=== PATIENT | male | born 1970 | race Hispanic/Latino ===

== ENCOUNTER 2023-05-20 10:45 | Outpatient (CLI) | payer OTHER, SELFPAY ==
[2023-05-20 11:14] LABS: Hematocrit 48.1 % (42.0-52.0); Immature Platelet Fraction Pct 7.1 % (0.9-11.2); Mean Corpuscular HGB Conc 33.3 g/dl (32-36); Mean Corpuscular Hemoglobin 28.5 pg (26-34); Mean Corpuscular Volume 85.7 fl (80-100); Mean Platelet Volume 10.8 fl (7.4-10.4); Platelet Count Result 138 k/mm3 (150-375); Red Blood Count 5.61 M/mm3 (4.6-6.20); Red Cell Distribution Width 13.8 % (11.5-14.5); White Blood Count 6.1 K/mm3 (4.5-10.0)
[2023-05-20 11:23] LABS: Prothrombin Time 13.8 Seconds (11.1-14.7)
[2023-05-20 11:35] LABS: Alanine Aminotransferase 148 U/L (6-50); Albumin Level 4.5 g/dL (3.5-5.1); Alkaline Phosphatase 64 U/L (38-126); Anion Gap 10 mmol/L (8-16); Aspartate Amino Transferase 92 U/L (17-59); Bilirubin,Total 0.6 mg/dL (0.2-1.3); Blood Urea Nitrogen 15 mg/dL (9-20); Carbon Dioxide 25 mmol/L (22-30); Chloride 107 mmol/L (98-107); Estimated Glomerular Filt Rate > 60; Glucose 133 mg/dL (65-110); Potassium 3.1 mmol/L (3.4-5.0); Sodium 142 mmol/L (137-145)
[2023-05-20 11:41] LABS: Immunoglobulin G 1428 mg/dL (700-1600)
[2023-05-20 12:37] LABS: Iron 102 ug/dL (49-181)
[2023-05-20 12:46] LABS: Percent Iron Saturation 29 % (20-50)
[2023-05-23 16:43] LABS: GGT 46 U/L (3-95)
[2023-05-24 12:58] LABS: Actin Antibody (IgG) <20 U (<20); LKM 1 Antibody <=20.0 U (<=20.0)
[2023-05-25 12:02] LABS: Mitochondrial (M2) Ab (IgG) <=20.0 U (<=20.0)
[2023-05-25 17:06] LABS: Ceruloplasmin 21 mg/dL (18-36)
[2023-05-26 15:01] LABS: Alpha Fetoprotein Tumor Marker 4.1 ng/mL (<6.1)
[2023-05-27 08:00] LABS: Anti Nuclear Antibody Titer >=1:1280 (Negative)
[2023-05-27 15:32] LABS: ALT 120 U/L (9-46); Alpha-2-Macroglobulin 216 mg/dL (106-279); Apolipoprotein A1 144 mg/dL (94-176); Fibrosis Score 0.21; Fibrosis Stage F0; GGT 48 U/L (3-95); Haptoglobin 101 mg/dL (43-212); Necroinflammat Act Grade A2-A3; Total Bilirubin 0.2 mg/dL (0.2-1.2)
== END 2023-05-20 10:46 | disposition home or self-care (01) ==
LOC: ANHLAB 10:47
PROVIDERS: PCP Family Medicine; Visit Provider Nurse Practitioner
DX: R74.8 Abnormal levels of other serum enzymes (principal); K76.0 Fatty (change of) liver, not elsewhere classified; K74.60 Unspecified cirrhosis of liver
CPT/HCPCS: 36415; 80053; 81596; 82105; 82390; 82728; 82784; 82977; 83520; 83540; 83550; 85027; 85055; 85610; 86038; 86039; 86364; 86376

== ENCOUNTER 2023-05-27 08:01 | Outpatient (CLI) | payer OTHER, SELFPAY ==
--- NOTE | ~2023-05-27 | US_ITS ---
Limited Abdominal Sonogram: Real-time sonographic imaging of the right upper quadrant was performed. Clinical History: Abnormal serum enzymes Findings: The liver appears echogenic, with no evidence of mass lesion or bile duct dilatation. Main portal vein demonstrates normal direction of flow. The gallbladder is well distended, and appears no rmal with no evidence of gallstone or wall thickening. The common bile duct measures 6 mm. The visua lized pancreas, aorta, and IVC are unremarkable. Impression: Diffuse fatty infiltration of the liver. Reviewed, dictated and finalized at location M. Impression: Diffuse fatty infiltration of the liver.
== END 2023-05-27 08:02 | disposition home or self-care (01) ==
LOC: ANHIMG 08:05
PROVIDERS: PCP Family Medicine; Visit Provider Nurse Practitioner
DX: R74.8 Abnormal levels of other serum enzymes (principal); K76.0 Fatty (change of) liver, not elsewhere classified
CPT/HCPCS: 76705

== ENCOUNTER 2025-06-21 10:50 | Outpatient (CLI) | payer OTHER, SELFPAY ==
--- OUTSIDE RECORDS SUMMARY | 2025-06-21 10:55 | XMS_ITS | Clinical Summary ---
Author Organization [facility] Farhana Son Address [address] [place] [address] Care Team Providers Care Chief Deputy Coroner Name Role Phone Shanna Mccormack DO Primary Care Provider [phone] Allergies Active Allergy Reactions Criticality Noted Date Comments Hydroxyzine Other (See Comments) High 09/01/2019 Numbness and completley out of it for 24 hours per patient Medications amLODIPine (NORVASC) 10 mg tablet Take 10 mg by mouth daily. 5 Active valsartan (DIOVAN) 160 mg tablet Take 160 mg by mouth daily. 5 Active fexofenadine ([place]) 180 mg tablet Take 180 mg by mouth daily. 4 Active fluticasone propionate (FLONASE) 50 mcg/spray [place], Suspension nasal inhaler Administer 2 Sprays in each nostril daily. 5 Active Flaxseed Oil Oil 5 Active TURMERIC 5 Active POTASSIUM Active cholecalciferol , vitamin D3, 1,000 unit Take 1,000 Units by mouth daily. 4 Active magnesium OXIDE (MAG-OX) 400 mg (241.3 mg magnesium) tablet Take 400 mg by mouth daily. Active Active Problems No known active problems Encounters Date Type Department Care Team Description 06/21/2025 10:30 AM CDT Office Visit [facility] Oncology and Hematology - [place] [address] [place] [address] Temo Stone MD Chronic anemia (Primary Dx); Other secondary thrombocytopenia from Last 3 Months Family History Medical History Relation Name Comments No Known Problems Brother 1 No Known Problems Brother 2 Hypertension Father Diabetes Mother No Known Problems Sister No Known Problems Son 1 No Known Problems Son 2 Relation Name Status Comments Brother 1 Alive Brother 2 Alive Father Mother Sister Alive Son 1 Alive Son 2 Alive Social History Tobacco Use Types Packs/Day Years Used Date Smoking Tobacco: Never Smokeless Tobacco: Never Tobacco Cessation:Counseling Given: Not Answered Alcohol Use Standard Drinks/Week Comments Yes 0 (1 standard drink = 0.6 oz pur e alcohol) Socially Sex and Gender Information Value Date Recorded Sex Assigned at Not on file Legal Sex Male 5:59 PM [employer]AV[employer] Gender Identity Not on file Sexual Orientation Not on file Last Filed Vital Signs Vital Sign Reading Time Taken Comments Blood Pressure 148/94 06/21/2025 10:22 AM CDT Pulse 74 06/21/2025 10:12 AM CDT Temperature 36.8 C (98.2 F) 06/21/2025 10:12 AM CDT Respiratory Rate 14 06/21/2025 10:12 AM CDT Oxygen Saturation 95% 06/21/2025 10:12 AM CDT Inhaled Oxygen Concentration - - Weight 101.2 kg (223 lb) 06/21/2025 10:12 AM CDT Height 160 cm (5' 3) 06/21/2025 10:12 AM CDT Body Mass Index 39.5 06/21/2025 10:12 AM CDT Plan of Treatment Upcoming Encounters Date Type Department Care Team (Late st Contact Info) Description 07/05/2025 4:30 PM CDT Telephone Check Up [facility]ology - [place] [address] [facility] [address] [place] [address] Temo Stone MD [address] [facility] [address] [place] [address] Health Maintenance Due Date Last Done Comments HEPATITIS B VACCINES (1 of 3 - 19+ 3-dose series) 1990 02/01/2015, 07/07/2014, 03/03/2014 COLORECTAL SCREENING 02/03/2016 Colorectal Cancer Screening 02/03/2016 FIT-DNA Q 3 years 02/03/2016 FIT/FOBT Q 1 year 02/03/2016 Flex Sig/CT Colonography Q 5 years 02/03/2016 DTAP/TDAP/TD VACCINES (2 - T d or Tdap) 09/16/2022 09/16/2012 COVID-19 Vaccine (3 - 2023-2 5 season) 2024 04/16/2021, 03/11/2021 INFLUENZA VACCINE (#1) 2025 , 11/02/2019, 11/09/2018, Additional history exists ZOSTER VACCINE Completed 02/17/2022, 11/12/2021 Insurance [facility] Care Teams Chief Deputy Coroner Relationship Specialty Start Date End Date Shanna Mccormack DO [address] [facility] [address] [place] [id number] PCP - General Family Practice 06/21/25
--- OUTSIDE RECORDS SUMMARY | 2025-06-21 10:55 | XMS_ITS | Continuity of Care Document ---
Author Name [facility] Organization [facility] Care Team Providers Care Fruit Receiver Name Role Phone [facility] Unavailable Unavailable Problems Combined list of problems from Department of Defense and [facility] Affairs facilities. It does not include entries that were removed or entered in error. Problem Status Onset Date Problem Type Date of Resolution Comments Source Other allergic rhinitis Active 8 Condition [facility] Essential (primary) hypertension Active 6 Condition [facility] Allergic Rhinitis ([facility] [id number]) Active Condition [facility] Chronic Dermatitis ([facility] [id number]) Active Condition [facility] Exposure to potentially hazardous substance Active Condition [facility] Generalized Anxiety Disorder ([facility] [id number]) Active Condition [facility] HTN - Hypertension ([facility] [id number]) Active Condition [facility] Hypertension Active Condition [facility] Joint pain Active Condition [facility] Left knee pain Active Condition [facility] Liver Function Tests Abnormal ([facility] [id number]) Active Condition [facility] Low back pain Active Condition [facility] Low Back Pain ([facility] [id number]) Active Condition [facility] Mixed Hyperlipidemia ([facility] [id number]) Active Condition [facility] Neck pain Active Condition [facility] Obesity ([facility] [id number]) Active Condition [facility] Obstructive Sleep Apnea Syndrome ([facility] [id number]) Active Condition Jul 08, 2020 Entered By: VIJAYA FREIRE Comment: 01/14/19 sleep study ([facility]), 03/28/19 cpap titration study: 9 cm h2o, cflex 3 with heated humidity [facility] Past history of procedure Active Condition Jun 18, 2020 Entered By: VIJAYA FREIRE Comment: 2016 oral surgery (receding gums)Jun 18, 2020 Entered By: VIJAYA FREIRE Comment: 1995 wisdom teeth extraction (4) [facility] Right hip pain Active Condition [facility] Steatosis of liver Active Condition [facility] Tinnitus ([facility] [id number]) Active Condition [facility] Other intervertebral disc displacement, lumbosacral region Active Condition DoD Flat foot [pes planus] (acquired), right foot Active Condition [facility] Flat foot [pes planus] (acquired), left foot Active Condition DoD Obstructive sleep apnea (adult) (pediatric) Active Condition DoD Other obesity due to excess calories Active Condition DoD Abnormal levels of other serum enzymes Active Condition DoD ASTIGMATISM - REGULAR Active Condition DoD REFRACTIVE ERROR - MYOPIA Active Condition DoD Diagnosis: ICD-10-CM I10 Essential (primary) hypertension Active Diagnosis [facility] Diagnosis: ICD-10-CM Z00.01 Encounter for general adult medical exam w abnormal findings Active Diagnosis [facility] Medications Combined list of outpatient medications from Department of Defense and [facility] Affairs facilities.Medications provided include 1) outpatient medications from the last 15 months, and 2) patient-reported medications. Medication Details Route Status Patient Instructions Prescription Expires Prescription Number Last Dispense Date Ordering Provider Order Date Order Qty Source AMLODIPINE BESYLATE 10MG TAB TAKE ONE TABLET BY MOUTH ONCE A DAY FOR HIGH BLOOD PRESSURE ORAL ACTIVE 07/02/2025 [id number] ME TAMIA TTISA 2024 90 [facility] AMLODIPINE BESYLATE 10MG TAB TAKE ONE TABLET BY MOUTH ONCE A DAY FOR HIGH BLOOD PRESSURE ORAL DISCONT INUED 04/08/2025 [id number] ME TAMIA TTISA 2024 90 [facility] AMLODIPINE BESYLATE 10MG TAB TAKE ONE TABLET BY MOUTH ONCE A DAY FOR HIGH BLOOD PRESSURE ORAL DISCONT INUED 01/15/2025 [id number] ME TAMIA TTISA 2023 90 [facility] AMLODIPINE BESYLATE 10MG TAB TAKE ONE TABLET BY MOUTH ONCE A DAY FOR HIGH BLOOD PRESSURE ORAL DISCONT INUED 09/27/2024 [id number] CANTRELL,ME TTISA 2023 90 [facility] azelastine 0.05% eye drops [6mL] See Instruct ions, # 6 mL, 6 total refill(s ), Hard Stop Complet ed 03/20/2025 5 2024 6.0 Ambulat ory Pharmac y azelastine 0.05% ophthalmic solution INSTILL ONE DROP INTO BOTH EYES TWICE A DAY *ALLOW 3 TO 5 DUTY DAYS FOR ORDERING *, # 6 mL, 6 total refill(s ), Acute Complet ed 03/13/2024 3 2023 6.0 Ambulat ory Pharmac y Azelastine HCl (Optivar Eq.) Solution 0.05% Optical For the eye. 03/20/2025 [id number] [address] [place] [address] Ravi MCNEILL ([facility] CAMPHOR/MEN THOL/METHYL SALICYLATE PATCH APPLY 1 PATCH TO SKIN SITE ONCE A DAY NEEDED (EXTERNA L USE ONLY) TRANSD ERMAL 06/13/2025 [id number] ANTONINO ADAME D 2023 60 [facility] CHOLECALCIF MONCHO 25MCG (1,000UNIT) TAB TAKE ONE TABLET BY MOUTH ONCE A DAY ORAL ACTIVE SAVANNA GOLDMAN D 2023 [facility] DICLOFENAC NA 1% GEL,TOP APPLY 2 GM TO AFFECTED AREA(S) FOUR TIMES A DAY NEEDED DO NOT EXCEED MORE THAN 16 GRAMS DAILY TO ANY LOWER EXTREMIT Y JOINT. NOT MORE THAN 8 GRAMS DAILY TO ANY UPPER EXTREMIT Y JOINT. MAX 32GM/DAY OVER ALL JOINTS. (MEASURE DOSE WITH RULER ATTACHED INSIDE BOX) TOPICA L 06/13/2025 [id number] ANTONINO ADAME D 2023 300 [facility] Diovan HCT 160 mg- 25 mg tablet = 1 tab(s), TAKE 1 TABLET BY MOUTH DAILY., # 90 EA, 3 total refill(s ), Acute Complet ed 03/13/2024 3 2023 90.0 Ambulat ory Pharmac y fexofenadin e 180 mg tablet 180 mg, Oral, Daily, # 90 EA, 3 total refill(s ), Hard Stop Oral (given by mouth) Complet ed 06/17/2024 4 2023 90.0 Ambulat ory Pharmac y FEXOFENADIN E HCL 180MG TAB TAKE ONE TABLET BY MOUTH EVERY MORNING FOR ALLERGIC RHINITIS ORAL 06/13/2025 [id number] ANTONINO ADAME 2023 90 [facility] FLAXSEED OIL CAP TAKE 1 CAPSULE BY MOUTH ONCE A DAY ORAL ACTIVE FELI FREIRE 2019 [facility] FLONASE-OTC (BRAND) 50 MCG MESERET SPSN [9.9] Take or use exactly as directed .For the nose. 03/20/2025 [id number] 4 2023 32 [facility] Ravi MCNEILL ([facility] fluticasone 50 mcg/inh nasal spray USE TWO SPRAYS NASALLY EVERY DAY DIRECTED , # 16 g, 3 total refill(s ), Acute Complet ed 03/13/2024 3 2023 16.0 Ambulat ory Pharmac y fluticasone 50 mcg/inh nasal spray [16g] See Instruct ions, # 32 g, 3 total refill(s ), Hard Stop Complet ed 03/20/2025 4 2024 32.0 Ambulat ory Pharmac y fluticasone 50 mcg/inh nasal spray [16g] See Instruct ions, # 16 g, 6 total refill(s ), Soft Stop Ordered 5 2024 16.0 Ambulat ory Pharmac y Gemtesa 75 mg tablet 75 mg, Oral, Daily, # 90 EA, 3 total refill(s ), Hard Stop Oral (given by mouth) Complet ed 05/27/2024 3 2023 90.0 Ambulat ory Pharmac y HYDROCHLORO THIAZIDE 25MG TAB TAKE ONE TABLET BY MOUTH ONCE A DAY ORAL ACTIVE 12/07/2025 [id number] NIRAVADORE DelvalleNANCY Jake 2024 90 [facility] HYDROCHLORO THIAZIDE 25MG TAB TAKE ONE TABLET BY MOUTH EVERY MORNING ORAL ACTIVE CHRISTY RUVALCABA 2015 MYCHLA Lockett [facility] HYDROCHLORO THIAZIDE 25MG/VALSAR MALLORY 160MG TAB TAKE ONE TABLET BY MOUTH ONCE A DAY ORAL ACTIVE PACE,VICT OR M 2020 [facility] MAGNESIUM OXIDE 400MG TAB TAKE ONE TABLET BY MOUTH ONCE A DAY ORAL ACTIVE PACE,VICT OR M 2019 [facility] MILK THISTLE CAP/TAB TAKE 1 CAP/TAB BY MOUTH ORAL ACTIVE SAVANNA GOLDMAN 2023 [facility] tretinoin 0.1% topical cream APPLY PEA SIZED AMOUNT TO THE BACK AT NIGHT AND MOISTURI ZE AFTER., # 45 g, 3 total refill(s ), Acute Complet ed 03/29/2024 3 2023 45.0 Ambulat ory Pharmac y valsartan 160 mg tablet See Instruct ions, # 90 EA, 0 total refill(s ), Hard Stop Complet ed 10/26/2024 4 2023 90.0 Ambulat ory Pharmac y VERAPAMIL TAB TAKE 60MG BY MOUTH EVERY DAY ORAL ACTIVE CHRISTY RUVALCABA 2015 MYCHAL Lockett [facility] Allergies, Adverse Reactions, Alerts Combined list of allergies from Department of Defense and Veterans Affairs facilities. It does not include entries that were removed or entered in error. Substance Category Reaction Severity Reaction type Status Date Reported Comments Source ATARAX Propensity to adverse reactions to drug (finding) Drowsy active [address] [facility] ATARAX (HYDROXYZINE HCL) Drug allergy (disorder) Drowsy, Fatigue - symptom, Other Reaction active 9 [facility] Ravi MCNEILL ([facility] hydrOXYzine Propensity to adverse reactions to drug Other Reaction Active 9 Unknown Organizati on Immunizations Combined list of available immunizations from the Department of Defense and Veterans Affairs facilities. Immunization Series Date Given Administered By Site Reaction Lot Number CVX Code Drug Director Building Status Comments Source INFLUENZA, UNSPECIFIED FORMULATION 2022 88 complet ed HISTORICA L INFORMATI ON - FROM OTHER PROVIDER, [facility] ZOSTER RECOMBINANT 2 2021 187 complet ed HISTORICA L INFORMATI ON - FROM OTHER REGISTRY, [facility] N zoster recombinant 2021 ALUL, () Not Given zoster recombina nt DoD ZOSTER RECOMBINANT 1 2020 187 complet ed HISTORICA L INFORMATI ON - FROM OTHER REGISTRY, [facility] N zoster recombinant 2020 ALUL, () Not Given zoster recombina nt DoD INFLUENZA, SPLIT VIRUS, QUADRIVALENT, PF 1 2020 150 complet ed HISTORICA L INFORMATI ON - FROM OTHER REGISTRY, [facility] COVID-19 (MODERNA), MRNA, LNP-S, PF, 100 MCG/0.5ML DOSE OR 50 MCG/0.25ML DOSE 2 2020 207 complet ed HISTORICA L INFORMATI ON - FROM OTHER REGISTRY, [facility] COVID-19, mRNA, LNP-S, PF, 100 mcg or 50 mcg dose 2020 ALUL, () Not Given COVID-19, mRNA, LNP-S, PF, 100 mcg or 50 mcg dose DoD COVID-19 (MODERNA), MRNA, LNP-S, PF, 100 MCG/0.5ML DOSE OR 50 MCG/0.25ML DOSE 1 2020 207 complet ed HISTORICA L INFORMATI ON - FROM OTHER REGISTRY, [facility] N influenza, injectable, quadrivalent- pf 2018 [id number] 150 Se[employer] complet ed influenza , injectabl e, quadrival ent-pf 11/02/19 Given Ambulat ory Pharmac y INFLUENZA, UNSPECIFIED FORMULATION 1 2018 88 complet ed HISTORICA L INFORMATI ON - FROM OTHER REGISTRY, [facility] N Influenza, injectable, quadrivalent, preservative free 20 2018 [id number] 040 150 Se[employer]irus (SEQ) complet ed Influenza , injectabl e, quadrival ent, preservat rosalina free DoD influenza, injectable, quadrivalent- pf 2017 [id number] 150 GlaxoSmithKli ne complet ed influenza , injectabl e, quadrival ent-pf 11/09/18 Given Ambulat ory Pharmac y INFLUENZA, UNSPECIFIED FORMULATION 2 2017 88 complet ed HISTORICA L INFORMATI ON - FROM OTHER REGISTRY, [facility] N Influenza, injectable, quadrivalent, preservative free 1 2017 [id number] 150 SmithKline (SKB) complet ed Influenza , injectabl e, quadrival ent, preservat rosalina free DoD INFLUENZA, UNSPECIFIED FORMULATION 1 2017 88 complet ed HISTORICA L INFORMATI ON - FROM OTHER REGISTRY, [facility] N influenza, injectable, quadrivalent- pf 2017 [id number] 150 GlaxoSmithKli ne complet ed influenza , injectabl e, quadrival ent-pf 01/20/18 Given Ambulat ory Pharmac y Influenza, injectable, quadrivalent, preservative free 1 2017 [id number] 150 SmithKline (SKB) complet ed Influenza , injectabl e, quadrival ent, preservat rosalina free DoD influenza, seasonal, injectable-pf 2015 [id number] 140 Seqirus complet ed influenza , seasonal, injectabl e-pf 08/30/16 Given Ambulat ory Pharmac y Influenza, seasonal, injectable, preservative free 17 2015 [id number] 140 Seqirus (SEQ) comple t ed Influenza , seasonal, injectabl e, preservat rosalina free DoD influenza, live, intranasal,qu adrivalent 2014 [id number] 149 Medimmune Inc comple t ed influenza , live, intranasa l,quadriv alent 10/06/15 Given Ambulat ory Pharmac y influenza, live, intranasal, quadrivalent 16 2014 [id number] 149 Med[employer]azara [employer] Inc. (MED) complet ed influenza , live, intranasa l, quadrival ent DoD hepatitis B adult vaccine 2014 [id number] 43 [facility] complet ed hepatitis B adult vaccine 02/01/15 Given Ambulat ory Pharmac y hepatitis B vaccine, adult dosage 3 2014 [id number] 43 Merck (MSD) complet ed hepatitis B vaccine, adult dosage DoD Influenza, injectable, MDCK-pf 2013 [id number] 153 Novartis Pharmaceutica ls complet ed Influenza , injectabl e, MDCK-pf 09/02/14 Given Ambulat ory Pharmac y Influenza, injectable, Madin Ana Canine Kidney, preservative free 15 2013 [id number] 153 Novartis Epoqtica l Letty. (NOV) complet ed Influenza , injectabl e, Madin Ana Canine Kidney, preservat rosalina free DoD hepatitis B adult vaccine 2013 [id number] 43 Merck & Company Inc complet ed hepatitis B adult vaccine 07/07/14 Given Ambulat ory Pharmac y hepatitis B vaccine, adult dosage 2 2013 [id number] 43 Merck (MSD) complet ed hepatitis B vaccine, adult dosage DoD hepatitis B adult vaccine 2013 [id number] 43 Merck & Company Inc complet ed hepatitis B adult vaccine 03/03/14 Given Ambulat ory Pharmac y hepatitis B vaccine, adult dosage 1 2013 [id number] 43 Merck (MSD) complet ed hepatitis B vaccine, adult dosage DoD influenza, live, intranasal,qu adrivalent 2012 [id number] 149 Volaris [employer] Inc comple t ed influenza , live, intranasa l,quadriv alent 10/01/13 Given Ambulat ory Pharmac y influenza, live, intranasal, quadrivalent 14 2012 [id number] 149 [employer] Inc. (MED) complet ed influenza , live, intranasa l, quadrival ent DoD tetanus, diphtheria, acellular pertu is 2011 [id number] 115 sanofi pasteur complet ed tetanus, diphtheri a, acellular pertussis 09/16/12 Given Ambulat ory Pharmac y influenza virus vaccine, live 2011 [id number] 111 V[employer]is [employer]visors[employer] Inc comple t ed influenza virus vaccine, live 09/16/12 Given Ambulat ory Pharmac y TDAP 2011 115 complet ed [facility] N influenza virus vaccine, live, attenuated, for intranasal use 13 2011 [id number] 111 [employer] Inc. (MED) complet ed influenza virus vaccine, live, attenuate d, for intranasa l use DoD tetanus toxoid, reduced diphtheria toxoid, and acellular pertu is vaccine, adsorbed 0 2011 [id number] 115 Sanofi Pasteur ([facility]) complet ed tetanus toxoid, reduced diphtheri a toxoid, and acellular pertussis vaccine, adsorbed DoD influenza virus vaccine, live 2010 [id number] 111 MediNazara Technologiesune Inc comple t ed influenza virus vaccine, live 09/13/11 Given Ambulat ory Pharmac y influenza virus vaccine, live, attenuated, for intranasal use 1 2010 [id number] 111 [employer] Inc. (MED) complet ed influenza virus vaccine, live, attenuate d, for intranasa l use DoD influenza virus vaccine,split 2009 [id number] 15 [facility] influenza virus vaccine,s plit 09/13/10 Given Ambulat ory Pharmac y influenza virus vaccine, split virus (incl. purified surface antigen)-reti red CODE 1 2009 [id number] 15 [facility] complet ed influenza virus vaccine, split virus (incl. purified surface antigen)- retired CODE DoD Novel influenza-H1N 1-09, injectable 2009 [id number] 127 Novartis Pharmaceutica complet ed Novel influenza -[id number], injectabl e 01/17/10 Given Ambulat ory Pharmac y Novel influenza-H1N 1-09, injectable 1 2009 [id number] 127 Novartis Pharmaceutica l Letty. (NOV) complet ed Novel influenza -[id number], injectabl e DoD influenza virus vaccine, live 2008 [id number] 111 [employer]iNazara Technologies[employer] Inc comple t ed influenza virus vaccine, live 09/14/09 Given Ambulat ory Pharmac y influenza virus vaccine, live, attenuated, for intranasal use 1 2008 [id number] 111 [employer], Inc. (MED) complet ed influenza virus vaccine, live, attenuate d, for intranasa l use DoD influenza virus vaccine, live 2007 [id number] 111 Mediune Inc comple t ed influenza virus vaccine, live 09/15/08 Given Ambulat ory Pharmac y influenza virus vaccine, live, attenuated, for intranasal use 1 2007 [id number] 111 Nef[employer]une, Inc. (MED) complet ed influenza virus vaccine, live, attenuate d, for intranasa l use DoD influenza virus vaccine, live 2007 [id number] 111 MediOutroop Inc. Inc comple t ed influenza virus vaccine, live 12/01/07 Given Ambulat ory Pharmac y influenza virus vaccine, live, attenuated, for intranasal use 1 2007 [id number] 111 [employer], Inc. (MED) complet ed influenza virus vaccine, live, attenuate d, for intranasa l use DoD influenza virus vaccine,split 2006 15 complet ed influenza virus vaccine,s plit 02/04/07 Given Ambulat ory Pharmac y influenza virus vaccine, whole virus 2006 16 complet ed influenza virus vaccine, whole virus 02/04/07 Given Ambulat ory Pharmac y influenza virus vaccine, split virus (incl. purified surface antigen)-reti red CODE 2 2006 15 Transcribed (TRS) complet ed influenza virus vaccine, split virus (incl. purified surface antigen)- retired CODE DoD influenza virus vaccine, whole virus 2 2006 Unknown, Provider 16 Transcribed (TRS) complet ed influenza virus vaccine, whole virus DoD influenza virus vaccine, live 2005 111 complet ed influenza virus vaccine, live 10/30/06 Given Ambulat ory Pharmac y influenza virus vaccine, live, attenuated, for intranasal use 1 2005 111 () complet ed influenza virus vaccine, live, attenuate d, for intranasa l use DoD vaccinia (smallpox) vaccine 2004 [id number] 75 [employer] [facility] complet ed vaccinia (smallpox ) vaccine 11/09/05 Given Ambulat ory Pharmac y vaccinia (smallpox) vaccine 1 2004 [id number] 75 [facility] complet ed vaccinia (smallpox ) vaccine DoD influenza virus vaccine, live 2004 [id number] 111 [employer] [facility] ed influenza virus vaccine, live 10/03/05 Given Ambulat ory Pharmac y influenza virus vaccine, live, attenuated, for intranasal use 1 2004 [id number] 111 [employer]. (MED) complet ed influenza virus vaccine, live, attenuate d, for intranasa l use DoD typhoid vaccine, inactivated 2004 [id number] 101 sanofi pasteur complet ed typhoid vaccine, inactivat ed 02/28/05 Given Ambulat ory Pharmac y meningococcal polysaccharid e (MPSV4) 2004 [id number] 32 sanofi pasteur complet ed meningoco ccal polysacch aride (MPSV4) 02/28/05 Given Ambulat ory Pharmac y meningococcal polysaccharid e vaccine (MPSV4) 1 2004 [id number] 32 Sanofi Pasteur ([facility]) complet ed meningoco ccal polysacch aride vaccine (MPSV4) [facility] typhoid vaccine, parenteral, other than acetone-kille d, dried 1 2004 [id number] 41 Sanofi Pasteur ([facility]) complet ed typhoid vaccine, parentera l, other than acetone-k illed, dried DoD influenza virus vaccine, live 2004 [id number] 111 [employer] comple t ed influenza virus vaccine, live 01/03/05 Given Ambulat ory Pharmac y influenza virus vaccine, live, attenuated, for intranasal use 0 2004 [id number] 111 [employer] Inc. (MED) complet ed influenza virus vaccine, live, attenuate d, for intranasa l use DoD influenza virus vaccine, whole virus 2002 [id number] 16 Novartis Pharmaceutica ls complet ed influenza virus vaccine, whole virus 11/03/03 Given Ambulat ory Pharmac y influenza virus vaccine, whole virus 0 2002 [id number] 16 [employer] ls (PWJ) complet ed influenza virus vaccine, whole virus DoD influenza virus vaccine, whole virus 2002 [id number] 16 sanofi pasteur complet ed influenza virus vaccine, whole virus 01/06/03 Given Ambulat ory Pharmac y influenza virus vaccine, whole virus 0 2002 [id number] 16 Sanofi Pasteur ([facility]) complet ed influenza virus vaccine, whole virus [facility] typhoid Vi capsular polysaccharid e vac 2001 [id number] 101 sanofi pasteur complet ed typhoid Vi capsular polysacch aride vac 09/02/02 Given Ambulat ory Pharmac y tetanus-dipht h toxoids (Td) adult/adol 2001 [id number] 09 [employer] complet ed tetanus-d iphth toxoids (Td) adult/ado l 09/02/02 Given Ambulat ory Pharmac y yellow fever vaccine 2001 [id number] 37 sanofi pasteur complet ed yellow fever vaccine 09/02/02 Given Ambulat ory Pharmac y tuberculin purified protein derivative 2001 zzLef [id number] Arm [id number] 96 [facility] complet ed Patient Tolerance : Negative Ambulat ory Pharmac y tetanus and diphtheria toxoids, adsorbed, preservative free, for adult use (2 Lf of tetanus toxoid and 2 Lf of diphtheria toxoid) 0 2001 [id number] 09 [facility] (CON) complet ed tetanus and diphtheri a toxoids, adsorbed, preservat rosalina free, for adult use (2 Lf of tetanus toxoid and 2 Lf of diphtheri a toxoid) DoD yellow fever vaccine 0 2001 [id number] 37 Sanofi Pasteur ([facility]) complet ed yellow fever vaccine DoD tuberculin skin test; purified protein derivative solution, intradermal 1 2001 Unknown, Provider [id number] 96 [facility] (CON) complet ed tuberculi n skin test; purified protein derivativ e solution, intraderm al DoD typhoid Vi capsular polysaccharid e vaccine 0 2001 [id number] 101 Sanofi Pasteur ([facility]) complet ed typhoid Vi capsular polysacch aride vaccine DoD influenza virus vaccine, whole virus 1999 [id number] 16 [employer] complet ed influenza virus vaccine, whole virus 11/09/00 Given Ambulat ory Pharmac y influenza virus vaccine, whole virus 0 1999 [id number] 16 [facility] complet ed influenza virus vaccine, whole virus DoD varicella virus vaccine 1 1999 21 () Not Given varicella virus vaccine DoD anthrax vaccine 1999 [id number] 24 [employer] complet ed anthrax vaccine 05/07/00 Given Ambulat ory Pharmac y anthrax vaccine 6 1999 [id number] 24 [employer] [facility] ([facility]) complet ed anthrax vaccine DoD tuberculin purified protein derivative 1999 [id number] 96 [facility] complet ed Patient Tolerance : Negative Ambulat ory Pharmac y tuberculin skin test; purified protein derivative solution, intradermal 1 1999 Unknown, Provider [id number] 96 [facility] (CON) complet ed tuberculi n skin test; purified protein derivativ e solution, intraderm al DoD typhoid vaccine, inactivated 1998 [id number] 101 [employer] complet ed typhoid vaccine, inactivat ed 09/04/99 Given Ambulat ory Pharmac y anthrax vaccine 1998 [id number] 24 [employer] complet ed anthrax vaccine 09/04/99 Given Ambulat ory Pharmac y anthrax vaccine 5 1998 [id number] 24 [employer] [place] ([facility]) complet ed anthrax vaccine DoD typhoid vaccine, parenteral, other than acetone-kille d, dried 0 1998 [id number] 41 [employer] (CON) complet ed typhoid vaccine, parentera l, other than acetone-k illed, dried DoD anthrax vaccine 1998 [id number] 24 [employer] complet ed anthrax vaccine 03/06/99 Given Ambulat ory Pharmac y anthrax vaccine 4 1998 [id number] 24 [employer] [place] ([facility]) complet ed anthrax vaccine DoD anthrax vaccine 1997 [id number] 24 [employer] complet ed anthrax vaccine 10/04/98 Given Ambulat ory Pharmac y anthrax vaccine 3 1997 [id number] 24 [employer] [place] ([facility]) complet ed anthrax vaccine DoD anthrax vaccine 1997 [id number] 24 [employer] complet ed anthrax vaccine 09/19/98 Given Ambulat ory Pharmac y anthrax vaccine 2 1997 [id number] 24 [employer] [place] ([facility]) complet ed anthrax vaccine DoD anthrax vaccine 1997 [id number] 24 [employer] complet ed anthrax vaccine 08/14/98 Given Ambulat ory Pharmac y anthrax vaccine 1 1997 [id number] 24 [employer] [place] ([facility]) complet ed anthrax vaccine DoD tuberculin purified protein derivative 1997 [id number] 96 [employer] complet ed Patient Tolerance : Negative Ambulat ory Pharmac y meningococcal polysaccharid e (MPSV4) 1997 [id number] [facility] complet ed meningoco ccal polysacch aride (MPSV4) 03/25/98 Given Ambulat ory Pharmac y meningococcal polysaccharid e vaccine (MPSV4) 0 1997 UKN 32 [facility] (CON) complet ed meningoco ccal polysacch aride vaccine (MPSV4) DoD tuberculin skin test; purified protein derivative solution, intradermal 1 1997 Unknown, Provider [phone] [id number] [facility] (CON) complet ed tuberculi n skin test; purified protein derivativ e solution, intraderm al DoD hepatitis A adult vaccine 1995 [id number] [employer] complet ed hepatitis A adult vaccine 07/27/96 Given Ambulat ory Pharmac y hepatitis A vaccine, adult dosage 2 1995 [id number] 52 Merck (MSD) complet ed hepatitis A vaccine, adult dosage DoD yellow fever vaccine [id number] [facility] complet ed yellow fever vaccine 07/22/92 Given Ambulat ory Pharmac y yellow fever vaccine 0 [id number] [facility] (CON) complet ed yellow fever vaccine DoD poliovirus vaccine, live, oral 1991 [id number] 02 [employer] complet ed polioviru s vaccine, live, oral 02/29/92 Given Ambulat ory Pharmac y trivalent poliovirus vaccine, live, oral 0 1991 [id number] 02 [facility] comple t ed trivalent polioviru s vaccine, live, oral DoD measles/mumps /rubella virus vaccine 1991 UKN 03 [facility] measles/m umps/rube lla virus vaccine 01/02/92 Given Ambulat ory Pharmac y tetanus-dipht h toxoids (Td) adult/adol 1991 UKN 09 [employer] complet ed tetanus-d iphth toxoids (Td) adult/ado l 01/02/92 Given Ambulat ory Pharmac y measles, mumps and rubella virus vaccine 0 1991 UKN 03 [facility] (CON) complet ed measles, mumps and rubella virus vaccine DoD tetanus and diphtheria toxoids, adsorbed, preservative free, for adult use (2 Lf of tetanus toxoid and 2 Lf of diphtheria toxoid) 0 1991 UKN 09 Merck (MSD) complet ed tetanus and diphtheri a toxoids, adsorbed, preservat rosalina free, for adult use (2 Lf of tetanus toxoid and 2 Lf of diphtheri a toxoid) DoD Results Combined list of recent chemistry, hematology and 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 Order Name Results Value Reference Range Date Interpretation Specimen Comments Source CBC LEUKOCYTES [#/VOLUME] IN BLOOD BY AUTOMATED COUNT 6.0 10*3/u L 3.6 - 11.2 06/29 Specimen Type: BLOOD No comment entered. Ordering Provider: RADHA GOLDMAN Report Released Date/Time: Jun 12, 2024 10:48 AM Reporting Lab: [facility] [address] [facility] [address] Performing Lab: [address] [address] [facility] CBC ERYTHROCYTES [#/VOLUME] IN BLOOD BY AUTOMATED COUNT 5.49 10*6/u L 4.10 - 5.70 06/29 Specimen Type: BLOOD No comment entered. Ordering Provider: RADHA GOLDMAN Report Released Date/Time: Jun 12, 2024 10:48 AM Reporting Lab: [facility] [address] [facility] [address] Performing Lab: [facility] [address] [place] [phone] [facility] CBC HEMOGLOBIN [MASS/VOLUME ] IN BLOOD 15.7 g/dL 13.1 - 16.8 06/29 Specimen Type: BLOOD No comment entered. Ordering Provider: RADHA GOLDMAN Report Released Date/Time: Jun 12, 2024 10:48 AM Reporting Lab: [facility] [address] [facility] [address] Performing Lab: [address] [address] [facility] CBC HEMATOCRIT [VOLUME FRACTION] OF BLOOD 47.3 38.2 - 48.4 06/29 Specimen Type: BLOOD No comment entered. Ordering Provider: RADHA GOLDMAN Report Released Date/Time: Jun 12, 2024 10:48 AM Reporting Lab: [facility] [address] [facility] [place] [address] Performing Lab: [facility] [address] [place] [phone] [facility] CBC MCV [ENTITIC VOLUME] BY AUTOMATED COUNT 86.2 fL 80.0 - 100.0 06/29 Specimen Type: BLOOD No comment entered. Ordering Provider: RADHA GOLDMAN Report Released Date/Time: Jun 12, 2024 10:48 AM Reporting Lab: [address] [address] Performing Lab: [address] [address] [facility] CBC MCH [ENTITIC MASS] BY AUTOMATED COUNT 28.6 pg 27.0 - 34.0 06/29 Specimen Type: BLOOD No comment entered. Ordering Provider: RADHA GOLDMAN Report Released Date/Time: Jun 12, 2024 10:48 AM Reporting Lab: [address] [address] Performing Lab: [address] [address] [facility] CBC MCHC [MASS/VOLUME ] BY AUTOMATED COUNT 33.2 g/dL 33.0 - 36.0 06/29 Specimen Type: BLOOD No comment entered. Ordering Provider: RADHA GOLDMAN Report Released Date/Time: Jun 12, 2024 10:48 AM Reporting Lab: [facility] [address] [place] [phone] Performing Lab: [address] [address] [facility] CBC PLATELETS [#/VOLUME] IN BLOOD BY AUTOMATED COUNT 148 10*3/u L 150 - 400 06/29 L Specimen Type: BLOOD No comment entered. Ordering Provider: RADHA GOLDMAN Report Released Date/Time: Jun 12, 2024 10:48 AM Reporting Lab: [address] [address] Performing Lab: [facility] [address] [facility] [address] [facility] CBC PLATELET MEAN VOLUME [ENTITIC VOLUME] IN BLOOD BY AUTOMATED COUNT 11.2 fL 7.5 - 11.2 06/29 Specimen Type: BLOOD No comment entered. Ordering Provider: RADHA GOLDMAN Report Released Date/Time: Jun 12, 2024 10:48 AM Reporting Lab: [facility] [address] [place] [phone] Performing Lab: [facility] [address] [place] [phone] [facility] CBC ERYTHROCYTE DISTRIBUTION WIDTH [RATIO] BY AUTOMATED COUNT 13.5 11.8 - 15.1 06/29 Specimen Type: BLOOD No comment entered. Ordering Provider: RADHA GOLDMAN Report Released Date/Time: Jun 12, 2024 10:48 AM Reporting Lab: [facility] [address] [place] [phone] Performing Lab: [facility] [address] [place] [phone] [facility] CBC LYMPHOCYTES/ 100 LEUKOCYTES IN BLOOD BY AUTOMATED COUNT 39 06/29 Specimen Type: BLOOD No comment entered. Ordering Provider: RADHA GOLDMAN Report Released Date/Time: Jun 12, 2024 10:48 AM Reporting Lab: [facility] [address] [facility] [address] Performing Lab: [facility] [address] [place] [address] [facility] CBC MONOCYTES/10 0 LEUKOCYTES IN BLOOD BY AUTOMATED COUNT 7 06/29 Specimen Type: BLOOD No comment entered. Ordering Provider: RADHA GOLDMAN Report Released Date/Time: Jun 12, 2024 10:48 AM Reporting Lab: [facility] [address] [place] [phone] Performing Lab: [facility] [address] [place] [phone] [facility] CBC NEUTROPHILS/ 100 LEUKOCYTES IN BLOOD BY AUTOMATED COUNT 50 06/29 Specimen Type: BLOOD No comment entered. Ordering Provider: RADHA GOLDMAN Report Released Date/Time: Jun 12, 2024 10:48 AM Reporting Lab: [facility] [address] [place] [phone] Performing Lab: [facility] [address] [place] [phone] [place] [address] CBC EOSINOPHILS/ 100 LEUKOCYTES IN BLOOD BY AUTOMATED COUNT 4 06/29 Specimen Type: BLOOD No comment entered. Ordering Provider: RADHA GOLDMAN Report Released Date/Time: Jun 12, 2024 10:48 AM Reporting Lab: [facility] [address] [place] [phone] Performing Lab: [address] [phone] CBC BASOPHILS/10 0 LEUKOCYTES IN BLOOD BY AUTOMATED COUNT 1 06/29 Specimen Type: BLOOD No comment entered. Ordering Provider: RADHA GOLDMAN Report Released Date/Time: Jun 12, 2024 10:48 AM Reporting Lab: [facility] [address] [place] [phone] Performing Lab: [facility] [address] [place] [phone] [facility] CBC LYMPHOCYTES [#/VOLUME] IN BLOOD BY AUTOMATED COUNT 2.30 10*3/u L 0.77 - 4.50 06/29 Specimen Type: BLOOD No comment entered. Ordering Provider: RADHA GOLDMAN Report Released Date/Time: Jun 12, 2024 10:48 AM Reporting Lab: [facility] [address] [place] [phone] Performing Lab: [facility] [address] [place] [phone] [facility] CBC MONOCYTES [#/VOLUME] IN BLOOD BY AUTOMATED COUNT 0.43 10*3/u L 0.19 - 0.80 06/29 Specimen Type: BLOOD No comment entered. Ordering Provider: RADHA GOLDMAN Report Released Date/Time: Jun 12, 2024 10:48 AM Reporting Lab: [address] [phone] Performing Lab: [address] [phone] [facility] CBC NEUTROPHILS [#/VOLUME] IN BLOOD BY AUTOMATED COUNT 2.97 10*3/u L 2.10 - 8.00 06/29 Specimen Type: BLOOD No comment entered. Ordering Provider: RADHA GOLDMAN Report Released Date/Time: Jun 12, 2024 10:48 AM Reporting Lab: [address] [phone] Performing Lab: [address] [phone] [place] [address] CBC EOSINOPHILS [#/VOLUME] IN BLOOD BY AUTOMATED COUNT 0.23 10*3/u L 0.00 - 0.60 06/29 Specimen Type: BLOOD No comment entered. Ordering Provider: RADHA GOLDMAN Report Released Date/Time: Jun 12, 2024 10:48 AM Reporting Lab: [address] [address] Performing Lab: [address] [phone] [facility] CBC BASOPHILS [#/VOLUME] IN BLOOD BY AUTOMATED COUNT 0.03 10*3/u L 0.00 - 0.20 06/29 Specimen Type: BLOOD No comment entered. Ordering Provider: RADHA GOLDMAN Report Released Date/Time: Jun 12, 2024 10:48 AM Reporting Lab: [address] [phone] Performing Lab: [address] [phone] [facility] COMPREHENSI VE METABOLIC PANEL CREATININE [MASS/VOLUME ] IN SERUM OR PLASMA 0.95 mg/dL 0.7 - 1.3 06/29 Specimen Type: PLASMA Comment: No hemolysis noted. Ordering Provider: RADHA GOLDMAN Report Released Date/Time: Jun 12, 2024 10:48 AM Reporting Lab: [facility] [address] [facility] [address] Performing Lab: [facility] [address] [facility] [address] [facility] COMPREHENSI VE METABOLIC PANEL UREA NITROGEN [MASS/VOLUME ] IN SERUM OR PLASMA 17.4 mg/dL 9.0 - 25.0 06/29 Specimen Type: PLASMA Comment: No hemolysis noted. Ordering Provider: RADHA GOLDMAN Report Released Date/Time: Jun 12, 2024 10:48 AM Reporting Lab: [address] [address] Performing Lab: [facility] [address] [place] [phone] [facility] COMPREHENSI VE METABOLIC PANEL GLUCOSE [MASS/VOLUME ] IN SERUM OR PLASMA 89 mg/dL 72 - 99 06/29 Specimen Type: PLASMA Comment: No hemolysis noted. Ordering Provider: RADHA GOLDMAN Report Released Date/Time: Jun 12, 2024 10:48 AM Reporting Lab: [address] [address] Performing Lab: [facility] [address] [place] [phone] [facility] COMPREHENSI VE METABOLIC PANEL SODIUM [MOLES/VOLUM E] IN SERUM OR PLASMA 143 meq/L 136 - 145 06/29 Specimen Type: PLASMA Comment: No hemolysis noted. Ordering Provider: RADHA GOLDMAN Report Released Date/Time: Jun 12, 2024 10:48 AM Reporting Lab: [facility] [address] [place] [phone] Performing Lab: [facility] [address] [place] [phone] [facility] COMPREHENSI VE METABOLIC PANEL POTASSIUM [MOLES/VOLUM E] IN SERUM OR PLASMA 3.6 meq/L 3.5 - 5 06/29 Specimen Type: PLASMA Comment: No hemolysis noted. Ordering Provider: RADHA GOLDMAN Report Released Date/Time: Jun 12, 2024 10:48 AM Reporting Lab: [address] [phone] Performing Lab: [place] [address] [facility] [phone] [place] [address] COMPREHENSI VE METABOLIC PANEL CHLORIDE [MOLES/VOLUM E] IN SERUM OR PLASMA 107 meq/L 98 - 107 06/29 Specimen Type: PLASMA Comment: No hemolysis noted. Ordering Provider: RADHA GOLDMAN Report Released Date/Time: Jun 12, 2024 10:48 AM Reporting Lab: [address] [phone] Performing Lab: [address] [phone] [facility] COMPREHENSI VE METABOLIC PANEL CARBON DIOXIDE, TOTAL [MOLES/VOLUM E] IN SERUM OR PLASMA 26 meq/L 22 - 31 06/29 Specimen Type: PLASMA Comment: No hemolysis noted. Ordering Provider: RADHA GOLDMAN Report Released Date/Time: Jun 12, 2024 10:48 AM Reporting Lab: [address] [phone] Performing Lab: [address] [phone] [facility] COMPREHENSI VE METABOLIC PANEL CALCIUM [MASS/VOLUME ] IN SERUM OR PLASMA 9.2 mg/dL 8.4 - 10.4 06/29 Specimen Type: PLASMA Comment: No hemolysis noted. Ordering Provider: RADHA GOLDMAN Report Released Date/Time: Jun 12, 2024 10:48 AM Reporting Lab: [facility] [address] [place] [phone] Performing Lab: [facility] [address] [facility] [phone] [facility] COMPREHENSI VE METABOLIC PANEL PROTEIN [MASS/VOLUME ] IN SERUM OR PLASMA 7.7 g/dL 6 - 8.6 06/29 Specimen Type: PLASMA Comment: No hemolysis noted. Ordering Provider: RADHA GOLDMAN Report Released Date/Time: Jun 12, 2024 10:48 AM Reporting Lab: [facility] [address] [facility] [address] Performing Lab: [place] [address] [facility] [address] [facility] COMPREHENSI VE METABOLIC PANEL ALBUMIN [MASS/VOLUME ] IN SERUM OR PLASMA 4.2 g/dL 3.4 - 5 06/29 Specimen Type: PLASMA Comment: No hemolysis noted. Ordering Provider: RADHA GOLDMAN Report Released Date/Time: Jun 12, 2024 10:48 AM Reporting Lab: [facility] [address] [facility] [address] Performing Lab: [address] [phone] [facility] COMPREHENSI VE METABOLIC PANEL BILIRUBIN.TO PEDRO [MASS/VOLUME ] IN SERUM OR PLASMA 0.5 mg/dL 0.2 - 1.2 06/29 Specimen Type: PLASMA Comment: No hemolysis noted. Ordering Provider: RADHA GOLDMAN Report Released Date/Time: Jun 12, 2024 10:48 AM Reporting Lab: [facility] [address] [place] [phone] Performing Lab: [address] [address] [facility] COMPREHENSI VE METABOLIC PANEL ALKALINE PHOSPHATASE [ENZYMATIC ACTIVITY/VOL UME] IN SERUM OR PLASMA 63 U/L 40 - 150 06/29 Specimen Type: PLASMA Comment: No hemolysis noted. Ordering Provider: RADHA GOLDMAN Report Released Date/Time: Jun 12, 2024 10:48 AM Reporting Lab: [facility] [address] [facility] [address] Performing Lab: [facility] [address] [facility] [address] [facility] COMPREHENSI VE METABOLIC PANEL ASPARTATE AMINOTRANSFE RASE [ENZYMATIC ACTIVITY/VOL UME] IN SERUM OR PLASMA 41 U/L 5 - 34 06/29 H Specimen Type: PLASMA Comment: No hemolysis noted. Ordering Provider: RADHA GOLDMAN Report Released Date/Time: Jun 12, 2024 10:48 AM Reporting Lab: [facility] [address] [facility] [address] Performing Lab: [address] [address] [facility] COMPREHENSI VE METABOLIC PANEL ALANINE AMINOTRANSFE RASE [ENZYMATIC ACTIVITY/VOL UME] IN SERUM OR PLASMA 78 U/L 8 - 40 06/29 H Specimen Type: PLASMA Comment: No hemolysis noted. Ordering Provider: RADHA GOLDMAN Report Released Date/Time: Jun 12, 2024 10:48 AM Reporting Lab: [address] [address] Performing Lab: [place] [address] [facility] [address] [facility] COMPREHENSI VE METABOLIC PANEL GLOMERULAR FILTRATION RATE/1.73 SQ M.PREDICTED [VOLUME RATE/AREA] IN SERUM, PLASMA OR BLOOD BY CREATININE-B ASED FORMULA (CKD-EPI 2020) 95.7 60 06/29 Specimen Type: PLASMA Comment: No hemolysis noted. Ordering Provider: RADHA GOLDMAN Report Released Date/Time: Jun 12, 2024 10:48 AM Reporting Lab: [facility] [address] [place] [phone] Performing Lab: [address] [address] [facility] HGA1C HEMOGLOBIN A1C/HEMOGLOB IN.TOTAL IN BLOOD 5.2 4.0 - 6.0 06/29 Specimen Type: BLOOD No comment entered. Ordering Provider: RADHA GOLDMAN Report Released Date/Time: Jun 12, 2024 10:48 AM Reporting Lab: [facility] [address] [place] [phone] Performing Lab: [facility] [address] [facility] [address] [facility] LIPID PANEL (STL) CHOLESTEROL [MASS/VOLUME ] IN SERUM OR PLASMA 171 mg/dL 0 - 200 06/29 Specimen Type: PLASMA Comment: No hemolysis noted. Ordering Provider: RADHA GOLDMAN Report Released Date/Time: Jun 12, 2024 10:48 AM Reporting Lab: [facility] [address] [place] [phone] Performing Lab: [address] [address] [facility] LIPID PANEL (STL) TRIGLYCERIDE [MASS/VOLUME ] IN SERUM OR PLASMA 201 mg/dL 0 - 150 06/29 H Specimen Type: PLASMA Comment: No hemolysis noted. Ordering Provider: RADHA GOLDMAN Report Released Date/Time: Jun 12, 2024 10:48 AM Reporting Lab: [facility] [address] [place] [phone] Performing Lab: [address] [address] [facility] LIPID PANEL (STL) CHOLESTEROL IN LDL [MASS/VOLUME ] IN SERUM OR PLASMA BY CALCULATION 91 mg/dL 06/29 Specimen Type: PLASMA Comment: No hemolysis noted. Ordering Provider: RADHA GOLDMAN Report Released Date/Time: Jun 12, 2024 10:48 AM Reporting Lab: [facility] [address] [place] [phone] Performing Lab: [facility] [address] [place] [phone] [facility] LIPID PANEL (STL) CHOLESTEROL IN HDL [MASS/VOLUME ] IN SERUM OR PLASMA 40 mg/dL 40 06/29 Specimen Type: PLASMA Comment: No hemolysis noted. Ordering Provider: RADHA GOLDMAN Report Released Date/Time: Jun 12, 2024 10:48 AM Reporting Lab: [facility] [address] [facility] [address] Performing Lab: [facility] [address] [facility] [phone] [facility] Encounters Combined list of: 1) Encounters from Department of [facility] Affairs facilities going backup to the last 18 months, not all [place] inpatient encounters are included; 2) Encounters from the Department of [facility] facilities going backup to 280 months. Location Location Details Encounter Type Encounter Number Reason For Visit Attending Provider ADM Date DC Date Status Disposition Source [facility](Op tometry Clinic ) OUTPATIENT [id number] ROUTINE DUANE DU 03/17 Released w/o Limitations [facility]( Optomet ry Clinic ) [employer]) OUTPATIENT [id number] ankle injury JESUS SILVA 02/27 Released w/o Limitations [facility]) [facility]) TELE CONSULT [id number] Notes Entered by: CLEMENTINA CAMPBELL 06 Mar 2014 1238 ------- ------- ------- ------- -- RETRO MIGUELITO BUSH 03/06 [facility]) [facility](Opt ometry) OUTPATIENT [id number] annual eye exam SIVA SCHMITZ 03/12 Released w/o Limitations [employer](O ptometr y) [employer]) OUTPATIENT [id number] F/U R ANKLE PAIN JESUS SILVA 04/09 Released w/o Limitations [employer]([facility]) [employer]([facility]) OUTPATIENT [id number] flu like symptom s MERY STOVALL 08/03 Sick at Home/Quarter s [facility](P atriot) [facility]) OUTPATIENT [id number] sinus infecti on NIC AL 08/06 Released with Work/Duty Limitations [employer]([facility]) [employer]([facility]) OUTPATIENT [id number] Notes Entered by: ARIANA OSBORNE 09 Aug 2014 0750 ------- ------- ------- ------- -- W/I RTFS JESUS SILVA 08/09 Released w/o Limitations [employer]([facility]) [employer]([facility]) OUTPATIENT [id number] RX F/U ARPIT IBARRA 01/28 Released with Work/Duty Limitations [employer]([facility]) [employer]) OUTPATIENT [id number] W/I - RTFS - Rx WILMAN MERY A 01/30 Released w/o Limitations [employer]([facility]) [employer](Phy sical Therapy) OUTPATIENT [id number] LEANN HART 02/07 Released w/o Limitations [employer](P hysical Therapy ) [employer](Opt ometry) OUTPATIENT [id number] REE/SIVA ADAN 02/15 Released w/o Limitations [employer](O ptometr y) [employer](Phy sical Therapy) OUTPATIENT [id number] EVA VILLALOBOS 02/20 Released w/o Limitations [employer](P hysical Therapy ) [employer](Phy sical Therapy) OUTPATIENT [id number] YANIRA FIGUEREDO 02/27 Released w/o Limitations [employer](P hysical Therapy ) [employer](Phy sical Therapy) OUTPATIENT [id number] YANIRA FIGUEREDO 03/07 Released w/o Limitations [employer](P hysical Therapy ) [employer](Phy sical Therapy) OUTPATIENT [id number] YANIRA FIGUEREDO 03/14 Released w/o Limitations [employer](P hysical Therapy ) [employer](Phy sical Therapy) OUTPATIENT [id number] EVA VILLALOBOS 03/19 Released w/o Limitations [employer](P hysical Therapy ) [employer](Phy sical Therapy) OUTPATIENT [id number] LEANN DE LA CRUZ 03/27 Released w/o Limitations [employer](P hysical Therapy ) [employer](Phy sical Therapy) OUTPATIENT [id number] LEANN DE LA CRUZ 04/29 Released w/o Limitations [employer](P hysical Therapy ) [employer]([facility]) OUTPATIENT [id number] F/U Profile for back pain RICARDO JESUS Mian 05/02 Released w/o Limitations [employer]([facility]) [employer] [facility]) OUTPATIENT [id number] UTI sx ARPIT IBARRA 07/15 Released w/o Limitations [employer]([facility]) [employer]([facility]) OUTPATIENT [id number] W/I-RTD -MERY VELOZ 07/17 Released w/o Limitations [employer]([facility]) [employer]([facility]) OUTPATIENT [id number] W/I-RTD -MERY AC 09/02 Released with Work/Duty Limitations [employer]([facility]) [employer](Phy sical Therapy) OUTPATIENT [id number] Strain of other muscle( s) and tendon( s) of posteri or muscle group at lower leg LEANN DE LA CRUZ 09/03 Released w/o Limitations [employer](P hysical Therapy ) [employer]) OUTPATIENT [id number] Notes Entered by: DEVANTE COHEN 10 Sep 2015 0759 ------- ------- ------- ------- -- W/I - RTFS - GERONIMO BENITEZ 09/10 Released w/o Limitations [employer]([facility]) [employer](Phy sical Therapy) OUTPATIENT [id number] LEANN DE LA CRUZ 09/16 Released w/o Limitations [employer](P hysical Therapy ) [employer](Phy sical Therapy) OUTPATIENT [id number] LEANN DE LA CRUZ Enrique 09/23 Released w/o Limitations [employer](P hysical Therapy ) [employer](Phy sical Therapy) OUTPATIENT [id number] LEANN DE LA CRUZ Enrique 09/30 Released w/o Limitations [employer](P hysical Therapy ) [employer](Phy sical Therapy) OUTPATIENT [id number] LEANN DE LA CRUZ Enrique 10/02 Released w/o Limitations [employer](P hysical Therapy ) [employer](Pat riot) OUTPATIENT [id number] Notes Entered by: AJIT REYES 23 Oct 2015 1300 ------- ------- ------- ------- -- W/I-MRI Results GERONIMO HURTADO 10/23 Released w/o Limitations [employer](P atriot) [employer](Phy sical Therapy) OUTPATIENT [id number] LEANN DE LA CRUZ Enrique 10/31 Released w/o Limitations [employer](P hysical Therapy ) [employer](Pat riot) OUTPATIENT [id number] RTFS DTA MERY STOVALL 11/04 Released w/o Limitations [employer](P atriot) [employer](Opt ometry) OUTPATIENT [id number] routine exam SIVA SCHMITZ 01/03 Released w/o Limitations [employer](O ptometr y) [employer](Pat riot) OUTPATIENT [id number] w/i post TATY seen in ER JAQUELINE RO 02/27 Released w/o Limitations [employer](P atriot) [employer](Pat riot) OUTPATIENT [id number] back painj JAQUELINE RO 03/10 Released w/o Limitations [employer](P atriot) [employer](Pat riot) TELE CONSULT [id number] Notes Entered by: Mian HERNANDEZ 26 Mar 2016 1037 ------- ------- ------- ------- -- Aero Dispo JAQUELINE RO 03/26 [employer](P atriot) [employer](Pat riot) TELE CONSULT [id number] Notes Entered by: Mian HERNANDEZ 06 Apr 2016 0841 ------- ------- ------- ------- -- Contact patient honeyi mirna nunez for epidera l shot MERY STOVALL 04/06 [employer](P atriot) [employer](Pat riot) OUTPATIENT [id number] back pain f/u ARIK RICCI 04/10 Released with Work/Duty [facility]itations [facility](Non Flyer PRP (BJAC)) OUTPATIENT [id number] acupunc GEORGE Medina 04/10 Released with Work/Duty Limitations [facility] [employer](N on Flyer PRP (BJAC)) [facility] [employer](Pat riot) OUTPATIENT [id number] W/I RTD MERY STOVALL Sudhakar 04/17 Released w/o Limitations [employer](P atriot) [facility]) OUTPATIENT [id number] F/U ER visit dizzine ss GERONIMO HURTADO 05/18 Sick at Home/Quarter s [employer](P atriot) [employer](Pat riot) OUTPATIENT [id number] F/U dizzine ss JAQUELINE RO Jesus 05/22 Released w/o Limitations [employer](P atriot) [employer](Pat riot) OUTPATIENT [id number] w/i-rtd JAQUELINE RO 05/26 Released w/o Limitations [employer](P atriot) [facility] OUTPATIENT [id number] ear infx sx WIL CHAPARRO 06/11 Released w/o Limitations [employer](P atriot) [facility]) OUTPATIENT [id number] f/u acupunc ture SEDA CHAPARROMICHELLE Nunez 08/21 Released with Work/Duty Limitations [employer](P atriot) [employer](Pat riot) OUTPATIENT [id number] lower back pain SHANKAR WIL Nunez 09/08 Released with Work/Duty Limitations [employer](P atriot) [employer](Pat riot) TELE CONSULT [id number] Notes Entered by: JAZMIN HEAD 10 Sep 2016 1432 ------- ------- ------- ------- -- Referra l for Dr. Osmin lockett Needs updated , Needs updated MRI DIEGO CHAPARRITA A 09/10 Released to [employer](P atriot) [employer](Pat riot) TELE CONSULT [id number] Notes Entered by: LETY VAZQUEZ 15 Sep 2016 1347 ------- ------- ------- ------- -- MRI Referra enrique. ARTHUR BALTAZAR 09/15 Referred for Appointment [facility](P atriot) [employer](Pat riot) TELE CONSULT [id number] Notes Entered by: AJIT REYES 08 Oct 2016 1351 ------- ------- ------- ------- -- [id number] pt is needing a referra l to see Dr. Lan for neuro surg WIL CHAPARRO 10/08 [employer](P atriot) [facility]) TELE CONSULT [id number] WIL CHAPARRO 10/16 [employer]([facility]) [employer](Pat riot) OUTPATIENT [id number] RTD ARIK RICCI 10/26 Released w/o Limitations [employer](P atriot) [employer](Opt ometry) OUTPATIENT [id number] MYLES GARCIA 12/28 Released w/o Limitations [employer](O ptometr y) [employer](Pat riot) OUTPATIENT [id number] ear inf sx WIL CHAPARRO L 02/24 Released w/o Limitations [employer](P atriot) [facility](Pat riot) OUTPATIENT [id number] lower back pain ARIK RICCI 04/13 Released w/o Limitations [facility] [employer](P atriot) [employer](Pat riot) TELE CONSULT [id number] Notes Entered by: ELMIRA YUNG 14 Apr 2017 1527 ------- ------- ------- ------- -- Med request ARIK RICCI 04/14 [facility](P atriot) [facility](Pat rio) TELE CONSULT [id number] Notes Entered by: Mian RICCI 19 Apr 2017 1513 ------- ------- ------- ------- -- Radiolo gy referra l ARIK RICCI 04/19 [facility](P atriot) [facility](Non Flyer PRP (BJAC)) TELE CONSULT [id number] Notes Entered by: OWEN BOYER 21 Apr 2017 0813 ------- ------- ------- ------- -- Set up lumbar epidura l injesti on CALLIE MADERA 04/21 [facility](N on Flyer PRP (BJAC)) [facility] [employer](Pat riot) OUTPATIENT [id number] lt eye red, mucous WIL CHAPARRO L 05/11 Released w/o Limitations [employer](P atriot) [employer](Pat riot) OUTPATIENT [id number] Discuss status ARIK RICCI 05/12 Released w/o Limitations [facility] [employer](P atriot) [facility](Pat riot) OUTPATIENT [id number] f/u lower back WILMANMERY ESCOTO A 06/02 Released w/o Limitations [facility](P atriot) [facility] ([facility]Sco tt Flight Medicine ) OUTPATIENT [id number] DISCUSS WASLADE KEARNS 11/04 Released w/o Limitations [address] [place] [address] Group [facility])(S cott Flight Medicin e Tm) [address] [place] [address] [facility])([facility] Flight Medicine ) OUTPATIENT [id number] F/U MEDS HARVINDER KENT Enrique 11/18 Released w/o Limitations [address] [place] [address] Group [facility])(S cott Flight Medicin e Tm) [address] [place] [address] [facility])(Opt ometry) OUTPATIENT [id number] rt exam/wa iver/df e? CEASARNICOLAAP Delvalle 11/26 Released w/o Limitations [address] [place] [address] Group Ravi [facility]ITO [facility])(O ptometr y) [address] [place] [address] [facility])([facility] Flight Medicine ) TELE CONSULT [id number] Notes Entered by: NANCY GENTILE 06 Dec 2017 0817 ------- ------- ------- ------- -- Network Results - Pain MGMT 7 SLADE LYLES 12/[address] [place] [address] Group [facility])(S [facility] Medicin e Tm) [address] [place] [address] [facility])([facility] Flight Medicine ) OUTPATIENT [id number] waiver for lower back pain renewal MYCHAL HERNANDEZ 12/06 Released w/o Limitations [address] [place] [address] Group [facility])(S [facility] Talk Flight Medicin e Tm) [address] [place] [address] [facility])([facility] Flight Medicine ) OUTPATIENT [id number] fever, no energy, nausea/ MYCHAL HERNANDEZ 12/20 Released w/o Limitations [address] [place] [address] Group [facility])(S cott Flight Medicin e Tm) [address] [place] [address] [facility])(Phy sical Therapy) OUTPATIENT [id number] Notes Entered by: KATERINA BARAJAS CK 23 Dec 2017 1128 ------- ------- ------- ------- -- LBP TANGELA WARD 12/23 Released w/o Limitations [address] [place] [address] Group [place] ([facility])(P hysical Therapy ) [address] [place] [address])([facility] Flight Medicine ) TELE CONSULT [id number] Notes Entered by: MYCHAL HERNANDEZ 24 Dec 2017 1155 ------- ------- ------- ------- -- F/u MRI MYCHAL HERNANDEZ 12/[address] [place] [address] Group [facility])(S cott Flight Medicin e Tm) [address] [place], [place] [address] [facility])(Phy sical Therapy) OUTPATIENT [id number] M54.5 Low back pain [facility] Pilar 12/31 Released w/o Limitations [address] [place] [address] ([facility])(P hysical Therapy ) [address] [place], [place] [address]B [facility]Phy sical Therapy) OUTPATIENT [id number] LBP NIYAH BARAHONA 01/05 Released w/o Limitations [address] [place] [address])(P hysical Therapy ) [address] [place], [place] [address] [facility] Flight Medicine ) OUTPATIENT [id number] Nasal Congest ion, green mucus, facial pressur e [id number] SLADE LYLES 01/11 Released w/o Limitations [address] [place], [place] [address]B ([facility])(S cott Flight Medicin e Tm) [address] [place] [address])([facility] Flight Medicine Tm) TELE CONSULT [id number] Notes Entered by: ATILIO HILL 19 Jan 2018 0808 ------- ------- ------- ------- -- F/U Appt Regardi ng Low Back Issues / Tamie / - sgj CARMELITA SCOTT 01/[address] [place], [place] [address] [facility])(S cott Flight Medicin e Tm) [address] [place], [place] [address] [facility])(Phy sical Therapy) OUTPATIENT [id number] f/u lbp TANGELA WARD 01/19 Released w/o Limitations [address] [place] [address] R[facility])(P hysical Therapy ) [address] [place] [address] [facility])([facility] tt Flight Medicine Tm) OUTPATIENT [id number] Low back issues MYCHAL HERNANDEZ 01/19 Released w/o Limitations [address] [place] [address])(S cott Flight Medicin e Tm) [address] [place] [address])(Phy sical Therapy) OUTPATIENT [id number] LBP NITHIN GONZALES 01/27 Released w/o Limitations [address] [place] [address])(P hysical Therapy ) [address] [place] [address])([facility] tt Flight Medicine Tm) TELE CONSULT [id number] Notes Entered by: Sudhakar SCHNEIDER 28 Jan 2018 0805 ------- ------- ------- ------- -- 1429 - Jan Appt Inquiry / Tamie/ - CARMELITA Taylor 01/[address] [place] [address])(S cott Flight Medicin e Tm) [address] [place] [address])(Phy sical Therapy) OUTPATIENT [id number] LBP NIYAH BARAHONA 02/03 Released w/o Limitations [address] [place] [address] ([facility]P hysical Therapy ) [address] [place] [address])(Bas e Operation al Medicine Clin) TELE CONSULT [id number] Notes Entered by: CLEOPATRA FAGAN 03 Feb 2018 1446 ------- ------- ------- ------- -- Med request /Dr. Lyles/ [facility] SLADE LYLES 02/[address] [place] [address] R[facility])(B ase Operati onal Medicin e Clin) [address] [place] [address])(Phy sical Therapy) OUTPATIENT [id number] LBP NIYAH BARAHONA SEBASTIAN 02/10 Released w/o Limitations [address] [place] [address] Ravi B [facility])(P hysical Therapy ) [address] [place] [address])(Phy sical Therapy) OUTPATIENT [id number] f/u HUGH TANGELA WARD 02/17 Released w/o Limitations [address] [place] [address])(P hysical Therapy ) [address] [place] [address])([facility] Flight Medicine Tm) TELE CONSULT [id number] Notes Entered by: NILO JAVED 18 Feb 2018 1447 ------- ------- ------- ------- -- Waiver/ Tamie/ /c DIANA Sutton 02/[address] [place] [address])(S [facility] Tm) [address] [place] [address])([facility] Flight Medicine ) TELE CONSULT [id number] Notes Entered by: KAY VEGA 04 Mar 2018 1459 ------- ------- ------- ------- -- Flight Physica l Appt Request / Tamie/ - MELY Figueroa 03/04 Other Not Elsewhere Classified [address] [place] [address])(S [facility] Flight Medicin e Tm) [address] [place] [address])(Aud iology Procedure s) OUTPATIENT [id number] Flight Annual EBSCOTTIE MOODY 03/18 Released w/o Limitations [address] [place] [address])(A udiolog y Procedu res) [address] [place] [address])([facility] Flight Medicine ) TELE CONSULT [id number] Notes Entered by: ALVIN TRUONG 05 Apr 2018 1322 ------- ------- ------- ------- -- Resched kev R for [facility] JUSTIN - Jaziel - [id number] 90vMELY Brandon 04/05 Referred for Appointment [address] [place] [address])(S [facility] Flight Medicin e Tm) [address] [place] [address])(Bas e Operation al Medicine Clin) OUTPATIENT [id number] 48 y/o M Glasses -Y/Waiv ers-Y KAYLAN SLADE G 04/20 Released w/o Limitations [address] [place] [address])(B ase Operati onal Medicin e Clin) [address] [place] [address])([facility] tt Flight Medicine Tm) TELE CONSULT [id number] Notes Entered by: TARIQ BRENNAN 22 Jul 2018 1337 ------- ------- ------- ------- -- Appt req - Bereda - - tsg GEORGE NGUYỄN 07/22 Referred for Appointment [address] [place] [address])(S cott Flight Medicin e Tm) [address] [place] [address])([facility] tt Flight Medicine Tm) OUTPATIENT [id number] COLD SYMPTOM S MAXIM CHARLES 07/26 Released w/o Limitations [address] [place] [address])(S cott Flight Medicin e Tm) [address] [place] [address])(Alo tt Flight Medicine Tm) OUTPATIENT [id number] nasal congest ion, MAXIM ZELAYA 08/08 Released w/o Limitations [address] [place] [address])(S cott Flight Medicin e Tm) [address] [place] [address])(Opt ometry) OUTPATIENT [id number] annual exam SHIVANI MCDONOUGH 08/17 Released w/o Limitations [address] [place] [address])(O ptometr y) [address] [place] [address])([facility] tt Flight Medicine Tm) OUTPATIENT [id number] cold symptom s pt profile MAXIM ZELAYA 09/20 Released w/o Limitations [address] [place] [address])(S cott Flight Medicin e Tm) [address] [place] [address])([facility] tt Flight Medicine Tm) TELE CONSULT [id number] Notes Entered by: JAYESH CARRASQUILLO 26 Dec 201854 ------- ------- ------- ------- -- Med [facility] /[facility] / MICHAELJULIETTEMARGAUX De La Fuente 12/26 Referred for Appointment [facility])(S cott Flight Medicin e Tm) [address] [place] [address])([facility] tt Flight Medicine Tm) OUTPATIENT [id number] Notes Entered by: JOSE TELLO 03 Jan 2019 1027 ------- ------- ------- ------- -- Rx refill flyer ARB/thi azide combo.. aunual appt SHELBIE VAZQUEZ 01/03 Released w/o Limitations [address] [place] [address])(S cott Flight Medicin e Tm) [address] [place] [address])([facility] Flight Medicine ) TELE CONSULT [id number] Notes Entered by: ATILIO HILL 11 Jan 2019 0741 ------- ------- ------- ------- -- Baldomero wiseman for [facility] / [facility] / - sgj MELY HERRERA 01/11 Referred for Appointment [address] [place] [address])(S [facility] Flight Medicin e Tm) [address] [place] [address])([facility] Flight Medicine ) TELE CONSULT [id number] Notes Entered by: Niurka QUINTERO 11 Jan 2019 0931 ------- ------- ------- ------- -- Provide r request ed T-Con-N etwork Results Pulmona ry 01/02/19 JANIE POE 01/[address] [place] [address])(S cott Flight Medicin e Tm) [address] [place] [address])([facility] Flight Medicine Tm) OUTPATIENT [id number] back issues SHELBIE VAZQUEZ 01/12 Released w/o Limitations [address] [place] [address])(S cott Flight Medicin e Tm) [employer] [facility])([facility] tt Flight Medicine Tm) TELE CONSULT [id number] Notes Entered by: SHELBIE VAZQUEZ 09 Feb 2019 1039 ------- ------- ------- ------- -- Labs SHELBIE VAZQUEZ 02/09 [employer] [facility])(S cott Flight Medicin e Tm) [facility])([facility] tt Flight Medicine Tm) TELE CONSULT [id number] Notes Entered by: ALVIN TRUONG 13 Mar 2019 0801 ------- ------- ------- ------- -- Jared pickering/u - [place]in[place] - [phone] POLLO Menon 03/13 Referred for Appointment [facility])(S cott Flight Medicin e Tm) [facility])([facility] tt Flight Medicine Tm) OUTPATIENT [id number] SHELBIE Cleveland 03/13 Released w/o Limitations [facility])(S cott Flight Medicin e Tm) [address] [place] [address])([facility] tt Flight Medicine Tm) TELE CONSULT [id number] Notes Entered by: SHELBIE VAZQUEZ 14 Mar 2019 1225 ------- ------- ------- ------- -- Result POLLO HOPPER 03/14 Referred for Appointment [facility])(S cott Flight Medicin e Tm) [facility])([facility] tt Flight Medicine Tm) TELE CONSULT [id number] Notes Entered by: SHELBIE VAZQUEZ 20 Mar 2019 1522 ------- ------- ------- ------- -- Result SHELBIE AVZQUEZ 03/20 [facility] Medical Group [facility])(S cott Flight Medicin e Tm) [address] [place] [address])([facility] Ahaali Medicine ) OUTPATIENT [id number] f/u w/K+, Liver functio n test and medicat ions MAXIM ZELAYA 03/22 Released w/o Limitations [address] [place] [address])([facility] Medicin e ) [address] [place] [address])([facility] Medicine ) TELE CONSULT [id number] Notes Entered by: LENIN ALFARO 13 Apr 2019 0929 ------- ------- ------- ------- -- Network results Pulmona ry 019 KSP AMXIM ZELAYA 04/[address] [place] [address])([facility] Medicin e ) [address] [place] [address])([facility] Medicine ) TELE CONSULT [id number] Notes Entered by: AWA ART 17 Apr 2019 1600 ------- ------- ------- ------- -- Sx-rash on right leg/zel lerbari/78 [phone] eld SHELBIE VAZQUEZ 04/[address] [place] [address])([facility] Medicin e ) [address] [place] [address])([facility] Medicine ) TELE CONSULT [id number] 3 Notes Entered by: NILO JAVED 18 Apr 2019 1115 ------- ------- ------- ------- -- STAT Referra l Change Req/27 Apr 2019/Ze llers/7 [phone] VINCENT Jansen 04/18 Referred for Appointment [address] [place] [address])([facility] Medicin e ) [address] [place] [address])([facility] Medicine ) OUTPATIENT [id number] Re-eval of worseni ng rash with occasio nal bleedin g when scratch ed. SHELBIE VAZQUEZ 04/19 Released w/o Limitations [address] [place] [address])(S [facility] Flight Medicin e Tm) [employer] [facility])([facility] Flight Medicine ) TELE CONSULT [id number] Notes Entered by: KAY VEGA A 27 Apr 2019 0834 ------- ------- ------- ------- -- STAT Dermato logy Referra l Amendme nt Req -27 April- Dwight/Ar moura/Thang [phone] -VINCENT Kwan A 04/27 Referred for Appointment [employer] [facility])(S Let's Talk Flight Medicin e Tm) [facility])([facility] Flight Medicine ) TELE CONSULT [id number] Notes Entered by: TARIQ BRENNAN 09 May 2019 0733 ------- ------- ------- ------- -- Flight justin/eHydi Zelaya - - JENNY Bejarano 05/09 Referred for Appointment [employer] [facility])(S [facility]'s Talk Flight Medicin e Tm) [facility])([facility] Flight Medicine ) TELE CONSULT [id number] Notes Entered by: AWA ART 12 May 2019 1108 ------- ------- ------- ------- -- Referra enrique blankenship /cande candelaria/ VINCENT Kumar A 05/12 Referred for Appointment [employer] [facility])(S Let's Talk Flight Medicin e Tm) [facility])(Aud iology Procedure s) OUTPATIENT [id number] Notes Entered by: ABIMAEL BYRNE 05 Jun 2019 1004 ------- ------- ------- ------- -- Annual Hearing test AISHA FAY 06/05 Released w/o Limitations [address] [place] [address] [facility])(A udiolog y Procedu res) [address] [place] [address])([facility] Flight Medicine ) TELE CONSULT [id number] Notes Entered by: MERON HERRERA 21 Jun 2019 0828 ------- ------- ------- ------- -- Network results Dermato logy 019 EER SHELBIE VAZQUEZ 06/[address] [place] [address])(S cott Flight Medicin e Tm) [address] [place] [address])(Bas e Operation al Medicine Clin) OUTPATIENT [id number] PHA//gl asses// Waiver Dated: 018 III Expires : 021 SIVA ORTEGA 06/21 Released w/o Limitations [address] [place] [address])(B ase Operati onal Medicin e Clin) [address] [place] [address])([facility] Flight Medicine ) OUTPATIENT [id number] Notes Entered by: JOSE TELLO 07 Jul 2019 1338 ------- ------- ------- ------- -- vision screeni RAVI Sunshine 07/07 Released w/o Limitations [address] [place] [address])(S cott Flight Medicin e Tm) [address] [place] [address])([facility] Internal Medicine ) TELE CONSULT [id number] Notes Entered by: ADAM ESCOBAR 02 Aug 2019 1135 ------- ------- ------- ------- -- Network Results PULM 07/18/19 ROSIE MCCRACKEN 08/[address] [place] [address])(S cott Interna l Medicin e Tm) [address] [place] [address])(Opt ometry) OUTPATIENT [id number] annual eye exam/gl asses / SHIVANI MCDONOUGH 08/18 Released w/o Limitations [address] [place] [address] Group [facility])(O ptometr y) [address] [place] [address])([facility] Flight Medicine ) OUTPATIENT [id number] f/u ER visit ANATOLY AHN Enrique 08/31 Released w/o Limitations [address] [place] [address] [facility])(S cott Flight Medicin e Tm) [address] [place] [address])([facility] Flight Medicine ) TELE CONSULT [id number] Notes Entered by: KAY VEGA A 18 Sep 2019 1525 ------- ------- ------- ------- -- SX - Congest ion, Cough, Wheezin pamela/ Juan lockett/ VINCENT Lara 09/18 Referred- Emergency Department [address] [place] [address])(S [facility] Flight Medicin e Tm) [address] [place] [address])([facility] Flight Medicine ) OUTPATIENT [id number] chronic lower back pain [id number] JANIE POE 11/09 Released w/o Limitations [address] [place] [address])(S [facility]'s Talk Flight Medicin e Tm) [address] [place] [address])([facility] Flight Medicine ) TELE CONSULT [id number] Notes Entered by: LENIN ALFARO 20 Nov 2019 0800 ------- ------- ------- ------- -- Network results Mateusz damon 019 HARVINDER OSUNA 11/[address] [place] [address])(S [facility]'s Talk Flight Medicin e Tm) [address] [place] [address])([facility] Flight Medicine ) TELE CONSULT [id number] Notes Entered by: FILIPPO IZAGUIRREANIT A 25 Dec 2019 1007 ------- ------- ------- ------- -- F/U Appt - ER F/U/ Juan lockett/ - braxtonh JANIE POE 12/25 [facility] [employer] [place]S cott Flight Medicin e Tm) [address] [place] [address] [employer] ([facility]Phy sical Therapy) OUTPATIENT [id number] Low back pain TANGELA WARDORMICK 12/25 Released w/o Limitations [address] [place] [address] [employer] ([facility]P hysical Therapy ) [address] [place] [address] [employer] ([facility]Phy sical Therapy) OUTPATIENT [id number] 7 back/hi p NIYAH BARAHONA 12/27 Released w/o Limitations [address] [place] [address] [employer] ([facility]P hysical Therapy ) [address] [place] [address] [employer] ([facility]Phy sical Therapy) OUTPATIENT [id number] 4 back/hi p JENNY VALENCIALM 12/29 Released w/o Limitations [address] [place] [address] [employer] ([facility]P hysical Therapy ) [address] [place] [address] [employer] ([facility]Phy sical Therapy) OUTPATIENT [id number] 4 back/hi p YAJAIRA, CHINA E 01/02 Released w/o Limitations [address] [place] [address] [employer] ([facility]P hysical Therapy ) [address] [place] [address] [employer] ([facility]Phy sical Therapy) OUTPATIENT [id number] 7 back/hi p MIREYA BASS 01/10 Released w/o Limitations [address] [place] [address] [employer] ([facility]P hysical Therapy ) [address] [place] [address] [employer] ([facility]Alo tt Flight Medicine Tm) OUTPATIENT [id number] 0 f/u ER visit JANIE POE 01/16 Released w/o Limitations [facility] [employer] ([facility]S cott Flight Medicin e Tm) [address] [place] [address] [employer] ([facility]Phy sical Therapy) OUTPATIENT [id number] 9 back/hi p TANGELA WARD PARTH 01/19 Released w/o Limitations [address] [place] [address] [employer] ([facility]P hysical Therapy ) [address] [place] [address] [employer] ([facility]Alo tt Flight Medicine Tm) OUTPATIENT [id number] HARVINDER QUINONES 01/31 Released w/o Limitations [address] [place] [address])(S [employer] Medicin e Tm) [address] [place] [address])([facility] Flight Medicine ) TELE CONSULT [id number] 5 Notes Entered by: TEOFILO WOODARD 2020 1148 ------- ------- ------- ------- -- KALEY/Yesi paiz /HARVINDER Nagy 02/[address] [place] [address])(S [employer] Medicin e Tm) [address] [place] [address])([facility] Flight Medicine ) TELE CONSULT [id number] 7 Notes Entered by: TERRENCE PAREDES 05 Feb 2020 1044 ------- ------- ------- ------- -- LAB RESULTS VINCENT RODRIGUEZ 02/04 Advice Assessment [address] [place] [address])(S [employer] Medicin [facility] Tm) [address] [place] [address])([facility] Flight Medicine ) TELE CONSULT [id number] 2 Notes Entered by: LENIN ALFARO 06 Feb 2020 1253 ------- ------- ------- ------- -- Network results Anes/ Pain Managem ent 020 BETOP JANIE POE 02/[address] [place] [address])(S [employer] Medicin [facility] Tm) [address] [place] [address])(Aud iology Procedure s) OUTPATIENT [id number] [facility] [employer] SHELIA ENRIQUEZ 02/14 Released w/o Limitations [address] [place] [address])(A udiolog y Procedu res) [address] [place] [address])(Jass matology) TELE CONSULT [id number] Notes Entered by: Sudhakar AYERS 28 Feb 2020 1350 ------- ------- ------- ------- -- Appoint ment RAMO SMITH 02/[address] [place] [address] [employer] B ([facility]D ermatol ogy) [address] [place] [address] Ravi [facility])(Jass matology) OUTPATIENT [id number] Notes Entered by: ANGLE SMITH 01 Mar 2020 0951 ------- ------- ------- ------- -- TELEVIS IT RAMO SMITH 03/01 Released w/o Limitations [address] [place] [address] [employer] K[employer]ERB ([facility]D ermatol ogy) [facility] Outpatient Encounter [id number] 06/12 [facility] Outpatient Encounter [id number] Diagnos is: ICD-10- CM Z00.01 [facility] er for general adult medical exam w INOCENCIA Khoury 06/12 [facility] Outpatient Encounter [id number] 06/12 [facility] CASE MANAGEMENT [id number] Diagnos is: ICD-10- CM I10 Essenti al (primar y) hyperte jaya AN,[facility] ISELLE M 06/28 [facility] HC PRO PHONE CALL 21-30 MIN [id number] Diagnos is: ICD-10- CM I10 Essenti al (primar y) hyperte jaya AN,[facility] ISTINE M 07/05 [facility] Outpatient Encounter [id number] 07/05 [facility] Outpatient Encounter [id number] 08/07 [facility] Outpatient Encounter [id number] 09/05 [facility] Outpatient Encounter [id number] ANTONIO MOAY 12/05 [facility]P EST MOD 30 MIN [id number] Diagnos is: ICD-10- CM I10 Essenti al (primar y) hyperte nsNANCY Martinez 12/06 [facility] Outpatient Encounter [id number] 12/07 [facility] Procedures Combined list of: 1) Procedures from Department of Veterans Affairs facilities going back up to thelast 18 months, not all [place] non-surgical procedures are included; 2) All procedures from the Department of Defense facilities. Procedure Procedure Type Code Date Perfomer Comments Sour e DETERMINATION OF REFRACTIVE STATE 2003 [facility] OPHTHALMOLOGICAL SERVICES: MEDICAL EXAMINATION AND EVALUATION, WITH INITIATION OR CONTINUATION OF DIAGNOSTIC AND TREATMENT PROGRAM; INTERMEDIATE, ESTABLISHED PATIENT 2000 [facility] DETERMINATION OF REFRACTIVE STATE 2000 [facility] FITTING OF SPECTACLES, EXCEPT FOR APHAKIA; MONOFOCAL 2005 DoD FITTING OF SPECTACLES, EXCEPT FOR APHAKIA; MONOFOCAL 2016 DoD TELE ASSESS & MGT SRV PROV QUAL NONPHYS HLTH CARE PRO TO EST PAT,PARENT,GUARD NOT ORIG REL ASSESS & MGT SRV PROV W/IN PREV 7 DAYS NOR LEAD ASSESS & MGT SRV/PX W/IN NXT 24 HR/SOON APT;5-10 MIN MED DIS 2015 [facility] BRIEF EMOTIONAL/BEHAVIOR AL ASSESSMENT (EG, DEPRESSION INVENTORY, ATTENTION-DEFICIT/ HYPERACTIVITY DISORDER [ADHD] SCALE), WITH SCORING AND DOCUMENTATION, PER STANDARDIZED INSTRUMENT 2015 [facility] BRIEF EMOTIONAL/BEHAVIOR AL ASSESSMENT (EG, DEPRESSION INVENTORY, ATTENTION-DEFICIT/ HYPERACTIVITY DISORDER [ADHD] SCALE), WITH SCORING AND DOCUMENTATION, PER STANDARDIZED INSTRUMENT 2015 [facility] ACUPUNCTURE, 1 OR MORE NEEDLES; WITHOUT ELECTRICAL STIMULATION, INITIAL 15 MINUTES OF PERSONAL ONE-ON-ONE CONTACT WITH THE PATIENT 2015 [facility] FITTING OF SPECTACLES, EXCEPT FOR APHAKIA; MONOFOCAL 2015 [facility] PHYSICAL THERAPY RE-EVALUATION 2014 DoD THERAPEUTIC PROCEDURE, 1 OR MORE AREAS, EACH 15 MINUTES; THERAPEUTIC EXERCISES TO DEVELOP STRENGTH AND ENDURANCE, RANGE OF MOTION AND FLEXIBILITY 2014 DoD THERAPEUTIC PROCEDURE, 1 OR MORE AREAS, EACH 15 MINUTES; THERAPEUTIC EXERCISES TO DEVELOP STRENGTH AND ENDURANCE, RANGE OF MOTION AND FLEXIBILITY 2014 DoD APPLICATION OF A MODALITY TO 1 OR MORE AREAS; ELECTRICAL STIMULATION (MANUAL), EACH 15 MINUTES 2014 [facility] APPLICATION OF A MODALITY TO 1 OR MORE AREAS; ELECTRICAL STIMULATION (MANUAL), EACH 15 MINUTES 2014 DoD STRAPPING; ANKLE AND/OR FOOT 2014 [facility] PHYSICAL THERAPY RE-EVALUATION 2014 DoD THERAPEUTIC PROCEDURE, 1 OR MORE AREAS, EACH 15 MINUTES; THERAPEUTIC EXERCISES TO DEVELOP STRENGTH AND ENDURANCE, RANGE OF MOTION AND FLEXIBILITY 2014 DoD THERAPEUTIC PROCEDURE,1 OR MORE AREAS,EACH 15 MINUTES;NEUROMUSCU LAR REEDUCATION OF MOVEMENT,BALANCE,C OORDINATION,KINEST HETIC SENSE,POSTURE,AND/ OR PROPRIOCEPTION FOR SITTING AND/OR STANDING ACTIVITIES 2014 DoD THERAPEUTIC PROCEDURE,1 OR MORE AREAS,EACH 15 MINUTES;NEUROMUSCU LAR REEDUCATION OF MOVEMENT,BALANCE,C OORDINATION,KINEST HETIC SENSE,POSTURE,AND/ OR PROPRIOCEPTION FOR SITTING AND/OR STANDING ACTIVITIES 2014 [facility] APPLICATION OF A MODALITY TO 1 OR MORE AREAS; HOT OR COLD PACKS 2014 DoD THERAPEUTIC PROCEDURE,1 OR MORE AREAS,EACH 15 MINUTES;NEUROMUSCU LAR REEDUCATION OF MOVEMENT,BALANCE,C OORDINATION,KINEST HETIC SENSE,POSTURE,AND/ OR PROPRIOCEPTION FOR SITTING AND/OR STANDING ACTIVITIES 2014 DoD THERAPEUTIC PROCEDURE,1 OR MORE AREAS,EACH 15 MINUTES;NEUROMUSCU LAR REEDUCATION OF MOVEMENT,BALANCE,C OORDINATION,KINEST HETIC SENSE,POSTURE,AND/ OR PROPRIOCEPTION FOR SITTING AND/OR STANDING ACTIVITIES 2014 [facility] FITTING OF SPECTACLES, EXCEPT FOR APHAKIA; MONOFOCAL 2014 DoD THERAPEUTIC PROCEDURE, 1 OR MORE AREAS, EACH 15 MINUTES; THERAPEUTIC EXERCISES TO DEVELOP STRENGTH AND ENDURANCE, RANGE OF MOTION AND FLEXIBILITY 2014 DoD ELECTROCARDIOGRAM, ROUTINE ECG WITH AT LEAST 12 LEADS; WITH INTERPRETATION AND REPORT 2014 DoD FITTING OF SPECTACLES, EXCEPT FOR APHAKIA; MONOFOCAL 2013 DoD BRIEF COMM TECH-BASE SERV,E.G. VIRT CHK-IN,BY PHYS/OTH QUAL HCP,RPT E&M SERV,PROV TO EST PT,NOT ORIG FRM REL E/M SERV PROV W/IN PREV 7DAY NOR LEAD TO E/M SRV/PX W/IN NEXT 24HR/SOON DESTINY; 5-10 MIN DISC 2019 DoD PURE TONE AUDIOMETRY (THRESHOLD), AUTOMATED; AIR ONLY 2019 DoD ADMINISTRATION OF PATIENT-FOCUSED HEALTH RISK ASSESSMENT INSTRUMENT (EG, HEALTH HAZARD APPRAISAL) WITH SCORING AND DOCUMENTATION, PER STANDARDIZED INSTRUMENT 2019 DoD THERAPEUTIC PROCEDURE, 1 OR MORE AREAS, EACH 15 MINUTES; THERAPEUTIC EXERCISES TO DEVELOP STRENGTH AND ENDURANCE, RANGE OF MOTION AND FLEXIBILITY 2019 DoD MANUAL THERAPY TECHNIQUES (EG, MOBILIZATION/ MANIPULATION, MANUAL LYMPHATIC DRAINAGE, MANUAL TRACTION), 1 OR MORE REGIONS, EACH 15 MINUTES 2019 DoD MANUAL THERAPY TECHNIQUES (EG, MOBILIZATION/ MANIPULATION, MANUAL LYMPHATIC DRAINAGE, MANUAL TRACTION), 1 OR MORE REGIONS, EACH 15 MINUTES 2019 DoD MANUAL THERAPY TECHNIQUES (EG, MOBILIZATION/ MANIPULATION, MANUAL LYMPHATIC DRAINAGE, MANUAL TRACTION), 1 OR MORE REGIONS, EACH 15 MINUTES 2019 DoD THERAPEUTIC PROCEDURE,1 OR MORE AREAS,EACH 15 MINUTES;NEUROMUSCU LAR REEDUCATION OF MOVEMENT,BALANCE,C OORDINATION,KINEST HETIC SENSE,POSTURE,AND/ OR PROPRIOCEPTION FOR SITTING AND/OR STANDING ACTIVITIES 2019 DoD THERAPEUTIC PROCEDURE, 1 OR MORE AREAS, EACH 15 MINUTES; THERAPEUTIC EXERCISES TO DEVELOP STRENGTH AND ENDURANCE, RANGE OF MOTION AND FLEXIBILITY 2019 DoD FITTING OF SPECTACLES, EXCEPT FOR APHAKIA; MONOFOCAL 2018 DoD SCREENING TEST OF VISUAL ACUITY, QUANTITATIVE, BILATERAL 2018 DoD PURE TONE AUDIOMETRY (THRESHOLD); AIR ONLY 2018 DoD PURE TONE AUDIOMETRY (THRESHOLD), AUTOMATED; AIR ONLY 2018 DoD FITTING OF SPECTACLES, EXCEPT FOR APHAKIA; MONOFOCAL 2017 DoD PURE TONE AUDIOMETRY (THRESHOLD); AIR ONLY 2017 DoD TELE ASSESS & MGT SRV PROV QUAL NONPHYS HLTH CARE PRO TO EST PAT,PARENT,GUARD NOT ORIG REL ASSESS & MGT SRV PROV W/IN PREV 7 DAYS NOR LEAD ASSESS & MGT SRV/PX W/IN NXT 24 HR/SOON APT;5-10 MIN MED DIS 2017 DoD PURE TONE AUDIOMETRY (THRESHOLD), AUTOMATED; AIR ONLY 2017 DoD TELE ASSESS & MGT SRV PROV QUAL NONPHYS HLTH CARE PRO TO EST PAT,PARENT,GUARD NOT ORIG REL ASSESS & MGT SRV PROV W/IN PREV 7 DAYS NOR LEAD ASSESS & MGT SRV/PX W/IN NXT 24 HR/SOON APT;5-10 MIN MED DIS 2017 DoD THERAPEUTIC PROCEDURE, 1 OR MORE AREAS, EACH 15 MINUTES; THERAPEUTIC EXERCISES TO DEVELOP STRENGTH AND ENDURANCE, RANGE OF MOTION AND FLEXIBILITY 2017 DoD THERAPEUTIC PROCEDURE,1 OR MORE AREAS,EACH 15 MINUTES;NEUROMUSCU LAR REEDUCATION OF MOVEMENT,BALANCE,C OORDINATION,KINEST HETIC SENSE,POSTURE,AND/ OR PROPRIOCEPTION FOR SITTING AND/OR STANDING ACTIVITIES 2017 DoD THERAPEUTIC PROCEDURE, 1 OR MORE AREAS, EACH 15 MINUTES; THERAPEUTIC EXERCISES TO DEVELOP STRENGTH AND ENDURANCE, RANGE OF MOTION AND FLEXIBILITY 2017 DoD THERAPEUTIC PROCEDURE,1 OR MORE AREAS,EACH 15 MINUTES;NEUROMUSCU LAR REEDUCATION OF MOVEMENT,BALANCE,C OORDINATION,KINEST HETIC SENSE,POSTURE,AND/ OR PROPRIOCEPTION FOR SITTING AND/OR STANDING ACTIVITIES 2017 DoD THERAPEUTIC PROCEDURE, 1 OR MORE AREAS, EACH 15 MINUTES; THERAPEUTIC EXERCISES TO DEVELOP STRENGTH AND ENDURANCE, RANGE OF MOTION AND FLEXIBILITY 2017 DoD THERAPEUTIC PROCEDURE, 1 OR MORE AREAS, EACH 15 MINUTES; THERAPEUTIC EXERCISES TO DEVELOP STRENGTH AND ENDURANCE, RANGE OF MOTION AND FLEXIBILITY 2017 DoD THERAPEUTIC PROCEDURE,1 OR MORE AREAS,EACH 15 MINUTES;NEUROMUSCU LAR REEDUCATION OF MOVEMENT,BALANCE,C OORDINATION,KINEST HETIC SENSE,POSTURE,AND/ OR PROPRIOCEPTION FOR SITTING AND/OR STANDING ACTIVITIES 2017 DoD THERAPEUTIC PROCEDURE, 1 OR MORE AREAS, EACH 15 MINUTES; THERAPEUTIC EXERCISES TO DEVELOP STRENGTH AND ENDURANCE, RANGE OF MOTION AND FLEXIBILITY 2017 [facility] FITTING OF SPECTACLES, EXCEPT FOR APHAKIA; MONOFOCAL 2016 [facility] Physical Therapy Neuromuscular Re-education Physical Therapy Neuromuscular Re-education 01532 2014 YANIRA FIGUEREDO Physical Therapy: ___ Se ion Segments, 15 Minutes Each Physical Therapy: ___ Session Segments, 15 Minutes Each [id number] 2014 YANIRA FIGUEREDO Physical Therapy Neuromuscular Re-education Physical Therapy Neuromuscular Re-education 17076 2014 EVA VILLALOBOS Physical Therapy: ___ Se ion Segments, 15 Minutes Each Physical Therapy: ___ Session Segments, 15 Minutes Each 72808 2014 EVA VILLALOBOS [employer] Fitting Monofocals (Not For Aphakia) [employer] Fitting Monofocals (Not For Aphakia) 09362 2014 SIVA SCHMITZ Determination Of Refractive State Determination Of Refractive State [id number] SIVA SCHMITZ Ophthalmological Prior Patient Start Comprehensive Care Ophthalmological Prior Patient Start Comprehensive Care 98637 2014 SIVA SCHMITZ Physical Therapy: ___ Se ion Segments, 15 Minutes Each Physical Therapy: ___ Session Segments, 15 Minutes Each 45193 2014 LEANN DE LA CRUZ Physical Medicine Physical Therapy Evaluation Physical Medicine Physical Therapy Evaluation 47272 2014 LEANN DE LA CRUZ [facility] ECG 12-Lead With Interpretation And Report ECG 12-Lead With Interpretation And Report 70143 [address]R. No [address] segment changes. No T wave abnormalities [facility] Determination Of Refractive State Determination Of Refractive State 55935 2013 SIVA SCHMITZ [employer] Fitting Monofocals (Not For Aphakia) [employer] Fitting Monofocals (Not For Aphakia) 98281 2013 SIVA SCHMITZ Ophthalmological New Patient Start Comprehensive Care Ophthalmological New Patient Start Comprehensive Care 63985 2013 SIVA SCHMITZ [employer] Fitting Monofocals (Not For Aphakia) [employer] Fitting Monofocals (Not For Aphakia) 32419 2005 DUANE DU Ophthalmological New Patient Start Intermediate Level Care Ophthalmological New Patient Start Intermediate Level Care 41121 2005 DUANE DU Threshold Audiogram (Pure Tone) Threshold Audiogram (Pure Tone) 18870 2018 SIVA ORTEGA Visual Maldonado Test Limited Examination Visual Maldonado Test Limited Examination 27914 2018 SIVA ORTEGA Screening Test Of Visual Acuity, Quantitative, Bilateral Screening Test Of Visual Acuity, Quantitative, Bilateral 67760 2018 SIVA ORTEGA Threshold Audiogram (Pure Tone) Automated Threshold Audiogram (Pure Tone) Automated 0208T 2018 AISHA FAY [employer] Fitting Monofocals (Not For Aphakia) [employer] Fitting Monofocals (Not For Aphakia) 39237 2017 SHIVANI MCDONOUGH Determination Of Refractive State Determination Of Refractive State 28109 2017 SHIVANI MCDONOUGH Ophthalmological Prior Patient Start Comprehensive Care Ophthalmological Prior Patient Start Comprehensive Care 30150 2017 SHIVANI MCDONOUGH Threshold Audiogram (Pure Tone) Threshold Audiogram (Pure Tone) 00725 2017 SLADE LYLES Non-Physician Phone Call To Patient/Provider Brief (5-10min) Non-Physician Phone Call To Patient/Provider Brief (5-10min) 57843 2017 EMLY HERRERA Threshold Audiogram (Pure Tone) Automated Threshold Audiogram (Pure Tone) Automated 0208T 2017 SCOTTIE BETTS Non-Physician Phone Call To Patient/Provider Brief (5-10min) Non-Physician Phone Call To Patient/Provider Brief (5-10min) 72364 2017 DIANA TAYLOR Non-Physician Phone Call To Patient/Provider Brief (5-10min) Non-Physician Phone Call To Patient/Provider Brief (5-10min) 06045 2017 DIANA TAYLOR [facility] Physical Therapy: ___ Se ion Segments, 15 Minutes Each Physical Therapy: ___ Session Segments, 15 Minutes Each 83489 2017 TANGELA WARD [facility] Physical Medicine Physical Therapy Re-Evaluation Physical Medicine Physical Therapy Re-Evaluation 02351 2017 TANGELA WARD Exercises A isted Exercises For ROM Exercises Assisted Exercises For ROM 66305 2017 NIYAH BARAHONA Physical Therapy Neuromuscular Re-education Physical Therapy Neuromuscular Re-education 94514 2017 NIYAH BARAHONA Physical Therapy Neuromuscular Re-education Physical Therapy Neuromuscular Re-education 90331 2017 NIYAH BARAHONA Exercises A isted Exercises For ROM Exercises Assisted Exercises For ROM 35719 2017 NIYAH BARAHONA Exercises A isted Exercises For ROM Exercises Assisted Exercises For ROM 87533 2017 NITHIN GONZALES Physical Therapy Neuromuscular Re-education Physical Therapy Neuromuscular Re-education 14328 2017 NITHIN GONZALES [facility] Physical Therapy: ___ Se ion Segments, 15 Minutes Each Physical Therapy: ___ Session Segments, 15 Minutes Each 17387 2017 TANGELA WARD Physical Medicine Physical Therapy Re-Evaluation Physical Medicine Physical Therapy Re-Evaluation 49908 2017 TANGELA WARD Physical Therapy Neuromuscular Re-education Physical Therapy Neuromuscular Re-education 88189 2017 NIYAH BARAHONA [facility] Physical Therapy: ___ Se ion Segments, 15 Minutes Each Physical Therapy: ___ Session Segments, 15 Minutes Each 29300 2017 NIYAH BARAHONA [facility] Physical Therapy Neuromuscular Re-education Physical Therapy Neuromuscular Re-education 83160 2017 SAKSHI GATES [facility] Physical Therapy: ___ Se ion Segments, 15 Minutes Each Physical Therapy: ___ Session Segments, 15 Minutes Each 29657 2017 YAJAIRASAKSHI Bah E [facility] Physical Therapy: ___ Se ion Segments, 15 Minutes Each Physical Therapy: ___ Session Segments, 15 Minutes Each 12110 2017 TANGELA WARD Sunil [employer] Fitting Bifocals (Not For Aphakia) [employer] Fitting Bifocals (Not For Aphakia) 53991 2016 SHIVANI MCDONOUGH [employer] Fitting Monofocals (Not For Aphakia) [employer] Fitting Monofocals (Not For Aphakia) 50709 2016 SHIVANI MCDONOUGH Determination Of Refractive State Determination Of Refractive State 90040 2016 SHIVANI MCDONOUGH Ophthalmological New Patient Start Comprehensive Care Ophthalmological New Patient Start Comprehensive Care 59471 2016 SHIVANI MCDONOUGH Determination Of Refractive State Determination Of Refractive State 63417 2016 MYLES ROMAN [employer] Fitting Monofocals (Not For Aphakia) [employer] Fitting Monofocals (Not For Aphakia) 90465 2016 MYLES ROMAN Ophthalmological Prior Patient Start Comprehensive Care Ophthalmological Prior Patient Start Comprehensive Care 51077 2016 MYLES ROMAN Non-Physician Phone Call To Patient/Provider Brief (5-10min) Non-Physician Phone Call To Patient/Provider Brief (5-10min) 04380 2015 ARTHUR BALTAZAR Acupunct One Or More [place] W/O Stimulation Initial 15 Min Acupunct One Or More [place] W/O Stimulation Initial 15 Min 65870 2015 GEORGE CABALLERO [employer] Fitting Monofocals (Not For Aphakia) [employer] Fitting Monofocals (Not For Aphakia) 93886 2015 SIVA SCHMITZ Determination Of Refractive State Determination Of Refractive State 91973 2015 SIVA SCHMITZ Ophthalmological Prior Patient Start Comprehensive Care Ophthalmological Prior Patient Start Comprehensive Care 83974 2015 SIVA SCHMITZ Physical Medicine Physical Therapy Re-Evaluation Physical Medicine Physical Therapy Re-Evaluation 55957 2014 LEANN DE LA CRUZ Exercises A isted Exercises For ROM Exercises Assisted Exercises For ROM 74859 2014 LEANN DE LA CRUZ Modalities Electrical Stimulation Attended Each 15 Minutes Modalities Electrical Stimulation Attended Each 15 Minutes 22401 2014 LEANN DE LA CRUZ Physical or manipulative therapy performed for maintenance rather than sikh 2014 LEANN DE LA CRUZ Osteopathic Manip Treatment (OMT) 1-2 Body Regions Involved Osteopathic Manip Treatment (OMT) 1-2 Body Regions Involved 25632 2014 LEANN DE LA CRUZ Physical Medicine Physical Therapy Re-Evaluation Physical Medicine Physical Therapy Re-Evaluation 74281 2014 LEANN DE LA CRUZ Exercises A isted Exercises For ROM Exercises Assisted Exercises For ROM 08630 2014 LEANN DE LA CRUZ Osteopathic Manip Treatment (OMT) 1-2 Body Regions Involved Osteopathic Manip Treatment (OMT) 1-2 Body Regions Involved 67103 2014 LEANN DE LA CRUZ Physical Medicine Physical Therapy Re-Evaluation Physical Medicine Physical Therapy Re-Evaluation 59277 2014 LEANN DE LA CRUZ Modalities Electrical Stimulation Attended Each 15 Minutes Modalities Electrical Stimulation Attended Each 15 Minutes 00077 2014 LEANN DE LA CRUZ Physical or manipulative therapy performed for maintenance rather than sikh 2014 LEANN DE LA CRUZ Exercises A isted Exercises For ROM Exercises Assisted Exercises For ROM 72885 2014 LEANN DE LA CRUZ Physical Medicine Physical Therapy Re-Evaluation Physical Medicine Physical Therapy Re-Evaluation 05564 2014 LEANN DE LA CRUZ Modalities Electrical Stimulation Attended Each 15 Minutes Modalities Electrical Stimulation Attended Each 15 Minutes 23775 2014 LEANN DE LA CRUZ Taping Ankle Taping Ankle 57597 2014 LEANN DE LA CRUZ Physical or manipulative therapy performed for maintenance rather than sikh 2014 LEANN DE LA CRUZ Physical Medicine Physical Therapy Re-Evaluation Physical Medicine Physical Therapy Re-Evaluation 61168 2014 LEANN DE LA CRUZ Taping Ankle Taping Ankle 08631 2014 LEANN DE LA CRUZ Modalities Electrical Stimulation Attended Each 15 Minutes Modalities Electrical Stimulation Attended Each 15 Minutes 39343 2014 LEANN DE LA CRUZ Exercises A isted Exercises For ROM Exercises Assisted Exercises For ROM 96315 2014 LEANN DE LA CRUZ Physical or manipulative therapy performed for maintenance rather than sikh 2014 LEANN DE LA CRUZ Physical Medicine Physical Therapy Evaluation Physical Medicine Physical Therapy Evaluation 90267 2014 LEANN DE LA CRUZ Physical Medicine Physical Therapy Re-Evaluation Physical Medicine Physical Therapy Re-Evaluation 95621 2014 LEANN DE LA CRUZ Exercises A isted Exercises For ROM Exercises Assisted Exercises For ROM 00215 2014 LEANN DE LA CRUZ Physical Medicine Physical Therapy Re-Evaluation Physical Medicine Physical Therapy Re-Evaluation 65347 2014 LEANN DE LA CRUZ Physical Therapy Neuromuscular Re-education Physical Therapy Neuromuscular Re-education 59267 2014 VILLALOBOSEVA [facility] Physical Therapy: ___ Se ion Segments, 15 Minutes Each Physical Therapy: ___ Session Segments, 15 Minutes Each 36198 2014 EVA VILLALOBOS [facility] Physical Therapy: ___ Se ion Segments, 15 Minutes Each Physical Therapy: ___ Session Segments, 15 Minutes Each 62818 2014 YANIRA FIGUEREDO Physical Therapy Neuromuscular Re-education Physical Therapy Neuromuscular Re-education [id number] 2014 YANIRA FIGUEREDO Modalities Heat Hot Packs Modalities Heat Hot Packs [id number] 2014 YANIRA FIGUEREDO Physical Therapy Neuromuscular Re-education Physical Therapy Neuromuscular Re-education 42130 2014 YANIRA FIGUEREDO Physical Therapy: ___ Se ion Segments, 15 Minutes Each Physical Therapy: ___ Session Segments, 15 Minutes Each [id number] 2014 YANIRA FIGUEREDO Screening Test Of Visual Acuity, Quantitative, Bilateral Screening Test Of Visual Acuity, Quantitative, Bilateral [id number] RAVI ESCALANTE [facility] Ophthalmological Prior Patient Start Comprehensive Care Ophthalmological Prior Patient Start Comprehensive Care 89313 SHIVANI MCDONOUGH Determination Of Refractive State Determination Of Refractive State 15035 SHIVANI MCDONOUGH Spectacles Services Fitting Monofocals (Not For Aphakia) Spectacles Services Fitting Monofocals (Not For Aphakia) 42488 SHIVANI MCDONOUGH Exercises A isted Exercises For ROM Exercises Assisted Exercises For ROM 99410 TANGELA WARD [facility] Physical Therapy: ___ Se ion Segments, 15 Minutes Each Physical Therapy: ___ Session Segments, 15 Minutes Each 22984 NIYAH BARAHONA [facility] Physical Therapy Neuromuscular Re-education Physical Therapy Neuromuscular Re-education 80363 NIYAH BARAHONA [facility] Physical Therapy Mobilization Joint Physical Therapy Mobilization Joint [id number] ANNIE JENNY ANSELMO [facility] Physical Medicine Physical Therapy Re-Evaluation Physical Medicine Physical Therapy Re-Evaluation 11032 TANGELA WARD [facility] Threshold Audiogram (Pure Tone) Automated Threshold Audiogram (Pure Tone) Automated 0208T SHELIA ENRIQUEZ [facility] Brief communication technology-based service, e.g. virtual check-in, by a physician or other qualified health care profe parvin who can report evaluation and management services, provided to an established patient, not originating from a related E/M service provided within the previous 7 days nor leading to an E/M service or procedure within the next 24 hours or soonest available appointment; 5-10 minutes of medical discu RAMO Ramirez [facility] No data available for this section Ambulato ry Pharmacy Social History Combined list of available smoking, tobacco, and other social history from [facility] Defense and [facility] facilities. Social History Type Response Date Comment [facility] e Tobacco smoking status NHIS VA-TOBACCO NEVER USED 06/12/2024 [facility] History of tobacco use CO-TOBACCO NEVER USED 07/01/2021 [facility] History of tobacco use CO-TOBACCO NEVER USED 05/30/2020 [facility] This section is an empty social history section. [facility] Assessment and Plan Combined list of future care activities from Department of Defense and Veterans Affairs facilities (e.g., assessment and plan notes, appointments, orders, and referrals). Additional future care activities may be listed in the Plan of Care section. Result Assessment and Plan Date Source Assessment and Plan No data available for this section 06/21/2025 Ambulatory Pharmacy Functional Status Combined list of recent functional and cognitive assessments recorded at [facility] of Defense and Veterans Affairs (VA).VA Functional [place] Measurement (FIM) Scale: 1 = Total Assistance (Subject = 0% +), 2 = Maximal Assistance (Subject = 25% +), 3 = Moderate Assistance (Subject = 50% +), 4 = Minimal Assistance (Subject = 75% +), 5 = Supervision, 6 = Modified [place] (Device), 7 = Complete [place] (Timely, Safely). Assessment Date/Time Source Assessment Type Assessment Skill Assessment Score Assessment Details No data available for this section
--- OUTSIDE RECORDS SUMMARY | 2025-06-21 10:55 | XMS_ITS | Referral Summary ---
Author Organization [facility] at the [facility] Office Center Address [address] [place] [address] Care Team Providers Care Glassworker Name Role Phone Shanna Mccormack Primary Care Provider Allergies No known active allergies Medications fexofenadine (JUAN DIEGO) 180 mg tablet 09/01/2019 Active ibuprofen (ADVIL,MOTRIN) 800 mg tablet 09/01/2019 Activ e valsartan-hydroc hlorothiazide (DIOVAN-HCT) 160-25 mg per tablet Take 1 tablet by mouth daily Active magnesium oxide (MAG-OX) 400 mg (241.3 mg elemental magnesium) tabletIndication s:hypomagnesemia Take 1 tablet (400 mg total) by mouth daily Active flaxseed oil oil Act rosalina fluticasone propionate (FLONASE) 50 mcg/actuation nasal spray 05/16/2020 Active Active Problems Problem Noted Date Diagnosed Date Class 2 obesity due to excess calories in adult 11/06/2019 Assessment & Plan (11/06/2019 9:55 AM MANAGER PAID): Patient with weight 205 lbs and BMI 36.3 today. - Encouraged weight loss as below Elevated liver enzymes 11/06/2019 Assessment & Plan (09/23/2023 3:17 PM CDT): Patient with hepatic steatosis, previously diagnosed with NAFLD when he saw Dr. Ny. Workup was unremarkable for other causes of chronic liver disease. Patient has gained 13 lbs over the last several years. He continues to have transaminitis with ALT 139 and AST 69 from 03/17/23 labs. Additionally, his platelet count is now <150 which was not the case in 2019. Most recent platelet count was 147k and prior to that it was 95k. FibroScan from 2019 showed minimal fibrosis or steatosis. I will obtain updated labs today including CBC, CMP, INR, AFP. I will also get updated FibroScan to assess if he now has significant fibrosis and steatosis. Patient will also undergo US locally to r/o liver lesions and assess if any cirrhotic morphology. Discussed the importance of weight loss. He should stop drinking all juices and increase water intake. He should avoid processed foods or eat them sparingly. If patient is unable to lose weight and he has MASH (previously known as CROWE), will recommend GLP 1 agonist like Ozempic. He should stop all alcohol use. Recommended he start walking 10 minutes daily x 1 week and slowly increase walking duration by 5 minutes per week. We have discussed the natural history of metabolic dysfunction-associated steatotic liver disease (MASLD), formerly known as NAFLD. We discussed the risks of progression to cirrhosis, association with hepatocellular carcinoma and potential future need for liver transplantation. We have discussed that the main mortality risks are primarily due to cardiovascular diseases, non-hepatic malignancies or cancers and only thirdly, from complications of liver disease. We recommend weight loss through diet and exercise. We recommend weight loss of 10% of current body weight over a period of a year. Lifestyle modification consisting of diet, exercise, and weight loss is necessary to treat patients with MASLD. The data shows that overall weight loss is the pinto to improvement in the histopathological features of MASH. A combination of a low calorie diet (daily reduction by 500-1,000 kcal) and moderate-intensity exercise provides the best chances of achieving and maintaining weight loss over time. Weight loss of at least 3%-5% of body weight appears necessary to improve steatosis, but a greater weight loss (7%-10%) is needed to improve the majority of the histopathological features of MASH, including fibrosis. At this time, I do not recommend he start testosterone replacement therapy given transaminitis. Testosterone injections have been associated with hepatic effects and hepatotoxicity including abnormal hepatic function tests, cholestasis, and hepatocellular neoplasm. He will return to clinic in 6-12 months. Assessment & Plan (11/06/2019 9:56 AM MANAGER PAID): Most likely etiology is fatty liver disease given multiple elements of the metabolic syndrome present (truncal obesity, VIGNESH, HTN). However, given the patient's age, other causes for liver disease (viral hepatitis, autoimmune, Hernando disease, hemochromatosis) should also be ruled out. - Encouraged patient to lose 10% of his body (20-25 lbs), as this could result in potential reversal of any hepatic steatosis related to fatty liver disease - Repeat CBC and CMP today, check HgbA1c - Check A1AT phenotype, ceruloplasmin, iron panel and ferritin, viral serologies, ASMA - Ordered liver elastography and RUQ US - Return to clinic in 9 months Social History Tobacco Use Types Packs/Day Years Used Date Smoking Tobacco: Never Smokeless Tobacco: Never Tobacco Cessation:Counseling Given: Not Answered Alcohol Use Standard Drinks/Week Comments Yes 0 (1 standard drink = 0.6 oz pur e alcohol) AUDIT-C Answer Date Recorded Frequency of Alcohol Consumption Monthly or less 11/06/2019 Average Number of Drinks 1 or 2 019 Frequency of Binge Drinking Never 07/2019 Personal Safety Answer Date Recorded Getting School Help Needed Not on file 11/11 Sex and Gender Information Value Date Recorded Sex Assigned at Not on file Legal Sex Male 9:56 AM CDT Gender Identity Male 11/06/2019 8:11 AM MANAGER PAID Sexual Orientation Not on file Last Filed Vital Signs Vital Sign Reading Time Taken Comments Blood Pressure 146/94 09/23/2023 1:57 PM CDT Pulse 86 09/23/2023 1:57 PM CDT Temperature 36.9 C (98.4 F) 09/23/2023 1:57 PM CDT Respiratory Rate - - Oxygen Saturation 97% 09/23/2023 1:57 PM CDT Inhaled Oxygen Concentration - - Weight 98.9 kg (218 lb) 09/23/2023 1:57 PM CDT Height 160 cm (5' 3) 09/23/2023 1:57 PM CDT Body Mass Index 38.62 09/23/2023 1:57 PM CDT Plan of Treatment Not on file Procedures Procedure Name Priority Date/Time Associated Diagnosis Comments HEPATITIS C ANTIBODY Routine 11/06/2019 10:02 AM MANAGER PAID Elevated liver enzymes Class 2 obesity due to excess calories with body mass index (BMI) of 36.0 to 36.9 in adult, unspecified whether serious comorbidity present from Last 3 Months or Most Recently Relevant to Health Maintenance Results * Hepatitis C antibody (11/06/2019 10:02 AM MANAGER PAID) Hep C Ab Nonreactive Nonreactive CORDELIA BENITE[facility] Comment: Interpretive Data Positive results should be confirmed by a molecular method. If positive, a second separately collected sample should be submitted for Hepatitis C Virus (HCV) RNA Detection and Quantitation by Real-Time Reverse Spot Machine Operator-PCR (RT-PCR). Current interpretive data was last revised on 2016. Blood specimen (specimen) 11/06/2019 10:02 AM MANAGER PAID 11/06/2019 11:58 AM MANAGER PAID Miriam Ny MD LAB MICROBIO LOGY - GENERAL ORDERABLES Edited Result - Final [facility] Department [place] [address] from Last 3 Months or Most Recently Relevant to Health Maintenance Insurance [facility] CLAIMS [facility] Care Teams Glassworker Relationship Specialty Start Date End Date Shanna Mccormack DO [address] [facility] [address] [place] [address] PCP - General Family Medicine 06/18/23
--- OUTSIDE RECORDS SUMMARY | 2025-06-21 10:55 | XMS_ITS | Encounter Summary ---
Author Organization [facility] Address [address] [place] [address] Care Team Providers Care Cream Dipper Name Role Phone Shanna Mccormack DO Primary Care Provider [phone] Encounter Details Date Type Department Care Team (Late st Contact Info) Description 06/21/2025 10:30 AM CDT Office Visit [facility] - [place] [address] [facility] [address] [place] [address] Temo Stone MD [address] [facility] [address] [place] [address] Chronic anemia (Primary Dx); Other secondary thrombocytopenia Social History Tobacco Use Types Packs/Day Years Used Date Smoking Tobacco: Never Smokeless Tobacco: Never Tobacco Cessation:Counseling Given: Not Answered Alcohol Use Standard Drinks/Week Comments Yes 0 (1 standard drink = 0.6 oz pur e alcohol) Socially Sex and Gender Information Value Date Recorded Sex Assigned at Not on file Legal Sex Male 5:59 PM DIRECTOR FOOD SAFETY Gender Identity Not on file Sexual Orientation Not on file documented as of this encounter Last Filed Vital Signs Vital Sign Reading [...] Mass Index 39.5 06/21/2025 10:12 AM CDT documented in this encounter Plan of Treatment Upcoming Encounters Date Type Department Care Team (Late st Contact Info) Description 07/05/2025 4:30 PM CDT Telephone Check Up [facility] - [place] [address] [facility] [address] [place] [address] Temo Stone MD [address] [facility] [address] [place] [address] Scheduled Orders Name Type Priority Associated Diagnoses Orde r Schedule CBC WITH DIFFERENTIAL Lab Stat Chronic anemia Expected: 06/21/2025, Expires: 06/21/2026 COMPREHENSIVE METABOLIC PANEL Lab Stat Chronic anemia Expected: 06/21/2025, Expires: 06/21/2026 FERRITIN Lab Routine Chronic anemia Expected: 06/21/2025, Expires: 06/21/2026 IRON, TIBC, AND PERCENT SATURATION Lab Routine Chronic anemia Expected: 06/21/2025, Expires: 06/21/2026 VITAMIN B12 AND FOLATE Lab Routine Chronic anemia Expected: 06/21/2025, Expires: 06/21/2026 METHYLMALONIC ACID Lab Routine Chronic anemia Expected: 06/21/2025, Expires: 06/21/2026 TRANSFERRIN RECEPTOR TFR SOLUBLE Lab Routine Chronic anemia Expected: 06/21/2025, Expires: 06/21/2026 MISCELLANEOUS LAB TEST Lab Routine Other secondary thrombocytopenia Expected: 06/21/2025, Expires: 06/21/2026 documented as of this encounter Visit Diagnoses Diagnosis Chronic anemia- Primary Anemia, unspecified Other secondary thrombocytopenia documented in this encounter Care Teams Cream Dipper Relationship Specialty Start Date End Date Shanna Mccormack DO [address] [facility] [address] [place] [id number] PCP - General Family Practice 06/21/25 documented as of this encounter
--- OUTSIDE RECORDS SUMMARY | 2025-06-21 10:55 | XMS_ITS | Clinical Summary ---
Author Organization [facility] at the [facility] Office Center Address [address] [place] [address] Care Team Providers Care Assembly Inspector Name Role Phone Shanna Mccormack Primary Care Provider [phone] Allergies No known active allergies Medications fexofenadine [...] 11/06/2019 Assessment & Plan (11/06/2019 9:55 AM TRADE SPECIALIST): Patient with weight 205 lbs and BMI [...] months. Assessment & Plan (11/06/2019 9:56 AM TRADE SPECIALIST): Most likely etiology is fatty liver disease [...] - Return to clinic in 9 months Medical History Medical History Date Comments Hypertension Low back pain Obesity Family History Medical History Relation Name Comments Hypertension Father Stroke Father Diabetes Mother Hypertension Mother Hypertension Sister Relation Name Status Comments Father Mother Sister Social History Tobacco Use Types Packs/Day Years [...] CDT Gender Identity Male 11/06/2019 8:11 AM TRADE SPECIALIST Sexual Orientation Not on file Obstetrics History Last Filed Vital Signs Vital Sign Reading [...] 09/23/2023 1:57 PM CDT Plan of Treatment Health Maintenance Due Date Last Done Comments Colon Cancer Screening-Colonoscopy 1971 Depression Screening 1971 Prostate Cancer Screening-PSA 1971 Regular Well Visit/Exam 18-64 1989 DTaP/Tdap/Td Vaccine (2 - Td or Tdap) 09/16/2022 09/16/2012, 09/02/2002, 01/02/1992 Covid-19 Vaccine ( season) 2024 04/16/2021, 03/11/2021 Influenza Vaccine (#1) 2025 , 09/30/2021, 11/02/2019, Additional history exists Hepatitis B Screening Completed 02/01/2015 , 07/07/2014, 03/03/2014 Hepatitis C Screening Completed 11/06/2019 Zoster Vaccine Completed 02/17/2022, 11/12/2021 Pneumococcal vaccine <65 Aged Out No longer eligible based on patient's age to complete this topic Procedures Procedure Name Priority Date/Time Associated Diagnosis Comments HEPATITIS C ANTIBODY Routine 11/06/2019 10:02 AM TRADE SPECIALIST Elevated liver enzymes Class 2 obesity due to excess calories with body mass index (BMI) of 36.0 to 36.9 in adult, unspecified whether serious comorbidity present from Last 3 Months or Most Recently Relevant to Health Maintenance Results * Hepatitis C antibody (11/06/2019 10:02 AM TRADE SPECIALIST) Hep C Ab Nonreactive Nonreactive [facility] Comment: Interpretive Data Positive results should be confirmed by a molecular method. If positive, a second separately collected sample should be submitted for Hepatitis C Virus (HCV) RNA Detection and Quantitation by Real-Time Reverse Equipment Operator-PCR (RT-PCR). Current interpretive data was last revised on 2016. Blood specimen (specimen) 11/06/2019 10:02 AM TRADE SPECIALIST 11/06/2019 11:58 AM TRADE SPECIALIST us Miriam Ny MD LAB MICROBIO LOGY - GENERAL ORDERABLES Edited Result - Final CORDELIA [facility] Department [place] [address] from Last 3 Months or Most Recently Relevant to Health Maintenance Insurance [facility] Care Teams Assembly Inspector Relationship Specialty Start Date End Date Shanna Mccormack DO [address] [facility] [address] [place] [address] PCP - General Family Medicine 06/18/23
--- OUTSIDE RECORDS SUMMARY | 2025-06-21 10:55 | XMS_ITS | Encounter Summary ---
Author Organization [facility] [employer] [facility] Address [address] [place] [address] Phone Care Team Providers Care Biofuels Processing Technician Name Role Phone Matthew Willett Edniurka DO Primary Care Provider [phone] Shanna Mccormack DO Primary Care Provider [phone] Encounter Details Date Type Department Care Team (Late st Contact Info) Description 02/05/2020 Orders Only [facility] Scanning, Provider Social History Tobacco Use Types Packs/Day Years Used Date Smoking Tobacco: Never Smokeless Tobacco: Never Alcohol Use Standard Drinks/Week Comments Yes 0 (1 standard drink = 0.6 oz pur e alcohol) AUDIT-C Answer Date Recorded Frequency of Alcohol Consumption Monthly or less 11/06/2019 Average Number of Drinks 1 or 2 019 Frequency of Binge Drinking Never 07/2019 Sex and Gender Information Value Date Recorded Sex Assigned at Not on file Legal Sex Male 9:56 AM CDT Gender Identity Male 11/06/2019 8:11 AM UNDERLINER Sexual Orientation Not on file documented as of this encounter Plan of Treatment Not on file documented as of this encounter Procedures Procedure Name Priority Date/Time Associated Diagnosis Comments SCAN - LABS 02/05/2020 documented in this encounter Results * SCAN - LABS (02/05/2020) us Provider Scanning Final Result documented in this encounter Visit Diagnoses Not on filedocumented in this encounter Care Teams Biofuels Processing Technician Relationship Specialty Start Date End Date Matthew Willett DO PCP - General Family Medicine 05/25/19 06/17/23 Shanna Mccormack DO [address] [address] PCP - General Family Medicine 06/18/23 documented as of this encounter
--- OUTSIDE RECORDS SUMMARY | 2025-06-21 10:55 | XMS_ITS | Encounter Summary ---
Author Organization [facility] Address [address] [place] [address] Phone Care Team Providers Care Stoneworking Belt Sander Name Role Phone No, Physician Primary Care Provider [phone] Matthew Willett DO Primary Care Provider [phone] Shanna Mccormack DO Primary Care Provider Encounter Details Date Type Department Care Team (Late st Contact Info) Description 03/15/2019 Orders Only [facility] Scanning, Provider Social History Tobacco Use Types Packs/Day Years Used Date Smoking Tobacco: Never Assessed Sex and Gender Information Value Date Recorded Sex Assigned at Not on file Legal Sex Male 9:56 AM CDT Gender Identity Male 11/06/2019 8:11 AM MARINE REPORTER Sexual Orientation Not on file documented as of this encounter Plan of Treatment Not on file documented as of this encounter Procedures Procedure Name Priority Date/Time Associated Diagnosis Comments SCAN - RADIOLOGY/IMAGING 03/15/2019 documented in this encounter Results * SCAN - RADIOLOGY/IMAGING (03/15/2019) Anatomical Region Laterality Modality Other us Provider Scanning Final Result documented in this encounter Visit Diagnoses Not on filedocumented in this encounter Care Teams Stoneworking Belt Sander Relationship Specialty Start Date End Date No, Physician PCP - General 02/27/19 05/24/19 Matthew Willett DO PCP - General Family Medicine 05/25/19 06/17/23 Shanna Mccormack DO [address] [facility] [address] [place] [address] PCP - General Family Medicine 06/18/23 documented as of this encounter
[2025-06-21 11:20] LABS: Hematocrit 48.2 % (42.0-52.0); Hemoglobin 15.9 g/dL (14.0-18.0); Immature Granulocyte Percent A 0.5 % (0-0.5); Lymphocytes Absolute Auto 2.42 K/mm3 (0.9-3.2); Mean Corpuscular HGB Conc 33.0 g/dl (32-36); Mean Corpuscular Hemoglobin 28.1 pg (26-34); Mean Corpuscular Volume 85.2 fl (80-100); Nucleated Red Blood Cells Absolute Auto 0.000 K/mm3 (0.0-0.012); Nucleated Red Blood Cells Perc 0.0 % (0.0-0.2); Platelet Count Result 149 k/mm3 (150-375); Red Blood Count 5.66 M/mm3 (4.6-6.20); White Blood Count 6.5 K/mm3 (4.5-10.0)
[2025-06-21 13:46] LABS: Iron 104 ug/dL (49-181)
[2025-06-21 13:50] LABS: Alanine Aminotransferase 130 U/L (6-50); Albumin Level 4.5 g/dL (3.5-5.1); Alkaline Phosphatase 94 U/L (38-126); Anion Gap 10 mmol/L (4-12); Aspartate Amino Transferase 84 U/L (17-59); Bilirubin,Total 0.6 mg/dL (0.2-1.3); Blood Urea Nitrogen 11 mg/dL (9-20); Calcium 9.0 mg/dL (8.4-10.2); Carbon Dioxide 26 mmol/L (22-30); Chloride 103 mmol/L (98-107); Estimated Glomerular Filt Rate > 60; Glucose 94 mg/dL (65-110); Potassium 3.7 mmol/L (3.4-5.0); Sodium 139 mmol/L (137-145); Total Protein 8.2 g/dL (6.3-8.2)
[2025-06-21 14:04] LABS: Percent Iron Saturation 33 % (20-50)
[2025-06-21 14:28] LABS: Ferritin 122.00 ng/mL (11.1-264)
[2025-06-21 15:05] LABS: Vitamin B12 476.0 pg/mL (239-931)
== END 2025-06-21 10:51 | disposition home or self-care (01) ==
PROVIDERS: PCP Family Medicine; Visit Provider Internal Medicine Hematology & Oncology
DX: D64.9 Anemia, unspecified (principal); D69.59 Other secondary thrombocytopenia
CPT/HCPCS: 36415; 80053; 82607; 82728; 82746; 83540; 83550; 83921; 84238; 85025

== ENCOUNTER 2025-07-06 11:22 | Outpatient (CLI) | payer OTHER, SELFPAY ==
--- OUTSIDE RECORDS SUMMARY | 2025-07-06 11:25 | XMS_ITS | Encounter Summary ---
Author Organization [facility] Address [address] [place] [address] Care Team Providers Care Role Player Name Role Phone Shanna Mccormack DO Primary Care Provider [phone] Encounter Details Date Type Department Care Team (Late st Contact Info) Description 10/06/2022 [employer] Message Enc [facility] Medical Group Family Medicine - [place] [address] [facility] [address], [address] [place] [address] Domitila, [facility] Provider Referral Social History Tobacco Use Types Packs/Day Years Used Date Smoking Tobacco: Never Smokeless Tobacco: Never Alcohol Use Standard Drinks/Week Comments Yes 0 (1 standard drink = 0.6 oz pur e alcohol) social use PHQ-2 Answer Date Recorded PHQ-2 Score - If the patient scores above 3, please move on to questions 3-9 0 10/07/2022 Education Answer Date Recorded What is the highest level of school you have completed or the highest degree you have received? 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 No / Unsure 10/07/2022 8:51 AM ELECTRIC ORGAN ASSEMBLER documented as of this encounter Functional Status * RETIRED Are you deaf or do you have serious difficulty hearing Answer Date of Assessment Author Status Yes 04/06/2022 2:59 AM CDT Activ e * RETIRED Are you blind or do you have serious difficulty seeing, even when wearing glasses? Answer Date of Assessment Author Status No 04/06/2022 2:59 AM CDT Activ e * Do you have serious difficulty walking or climbing stairs? Answer Date of Assessment Author Status No 04/06/2022 2:59 AM JOHNATHANT Anyi Rivera RN Active * Do you have difficulty dressing or bathing? Answer Date of Assessment Author Status No 04/06/2022 2:59 AM JOHNATHANT Anyi Rivera RN Active * Because of a physical, mental, or emotional condition, do you have difficulty doing errands alone such as visiting a doctor's office or shopping? Answer Date of Assessment Author Status No 04/06/2022 2:59 AM JOHNATHANT Anyi Rivera RN Active documented as of this encounter Mental Status * Because of a physical, mental, or emotional condition, do you have serious difficulty concentrating, remembering, or making decisions? Answer Entry Date Author Status No 04/06/2022 2:59 AM JOHNATHANT Anyi Rivera RN Active documented in this encounter Plan of Treatment Upcoming Encounters Date Type Department Care Team (Late st Contact Info) Description 10/18/2025 3:20 PM ELECTRIC ORGAN ASSEMBLER Office Visit [facility] Medical Group Multispecialty Care - [facility] [address] [place] [phone] Jakub Adams MD [address] [place] [address] documented as of this encounter Goals Goal Patient Goal Type Associated Problems Recent Progress Patient-Stated? Author Health - patient able to perform ADLs independently General Chace Woodard RN documented as of this encounter Visit Diagnoses Not on filedocumented in this encounter Additional Health Concerns Infection Onset Date Last Indicated Resolved Time COVID-19 Rule Out 08/23/2023 08/23/2023 08/23/2023 8:18 AM CDT COVID-19 Rule Out 08/23/2023 08/23/2023 08/24/2023 4:18 PM CDT Assessment Noted Time PHQ-9 Depression Total Score: 4 04/20/20 4:45 PM CDT documented as of this encounter Care Teams Role Player Relationship Specialty Start Date End Date Shanna Mccormack DO [address] [place] [phone] PCP - General FAMILY PRACTICE 10/05/22 documented as of this encounter
--- OUTSIDE RECORDS SUMMARY | 2025-07-06 11:25 | XMS_ITS | Clinical Summary ---
Author Organization [facility] Office Center Address [address] [place] [address] Care Team Providers Care Applications Manager Name Role Phone Shanna Mccormack Primary Care Provider [phone] Allergies No known active allergies Medications fexofenadine [...] 11/06/2019 Assessment & Plan (11/06/2019 9:55 AM MISSILE AND MISSILE CHECKOUT TECHNICIAN): Patient with weight 205 lbs and BMI [...] months. Assessment & Plan (11/06/2019 9:56 AM MISSILE AND MISSILE CHECKOUT TECHNICIAN): Most likely etiology is fatty liver disease [...] CDT Gender Identity Male 11/06/2019 8:11 AM MISSILE AND MISSILE CHECKOUT TECHNICIAN Sexual Orientation Not on file Obstetrics History [...] HEPATITIS C ANTIBODY Routine 11/06/2019 10:02 AM MISSILE AND MISSILE CHECKOUT TECHNICIAN Elevated liver enzymes Class 2 obesity due to excess calories with body mass index (BMI) of 36.0 to 36.9 in adult, unspecified whether serious comorbidity present from Last 3 Months or Most Recently Relevant to Health Maintenance Results * Hepatitis C antibody (11/06/2019 10:02 AM MISSILE AND MISSILE CHECKOUT TECHNICIAN) Hep C Ab Nonreactive Nonreactive [facility] Comment: Interpretive Data Positive results should be confirmed by a molecular method. If positive, a second separately collected sample should be submitted for Hepatitis C Virus (HCV) RNA Detection and Quantitation by Real-Time Reverse Wallpaperer-PCR (RT-PCR). Current interpretive data was last revised on 2016. Blood specimen (specimen) 11/06/2019 10:02 AM MISSILE AND MISSILE CHECKOUT TECHNICIAN 11/06/2019 11:58 AM MISSILE AND MISSILE CHECKOUT TECHNICIAN us Miriam Ny MD LAB MICROBIO LOGY - GENERAL ORDERABLES Edited Result - Final [facility] Department [place] [address] from Last 3 Months or Most Recently Relevant to Health Maintenance Insurance [facility] Care Teams Applications Manager Relationship Specialty Start Date End Date Shanna Mccormack DO [address] [facility] [address] [place] [address] PCP - General Family Medicine 06/18/23
--- OUTSIDE RECORDS SUMMARY | 2025-07-06 11:26 | XMS_ITS | Encounter Summary ---
Author Organization [facility] Address [address] [place] [address] Care Team Providers Care Internet Sales Director Name Role Phone Shanna Mccormack DO Primary Care Provider [phone] Encounter Details Date Type Department Care Team (Late st Contact Info) Description 09/14/2023 [employer] Message Enc [facility] Medical Group Family Medicine - [place] [address] [facility], [address] [place] [phone] Ksenia ShannaDO [address] [place], [place] [address] Question about low T results Social History Tobacco Use Types Packs/Day Years Used Date Smoking Tobacco: Never Passive Smoke Exposure: Never Smokeless Tobacco: Never Alcohol Use Standard Drinks/Week Comments Yes 0 (1 standard drink = 0.6 oz pur e alcohol) social use PHQ-2 Answer Date Recorded Patient Health Questionnaire-2 Score 0 03/15/2023 Education Answer Date Recorded What is the [...] file Not on file Not on file documented as of this encounter Functional Status [...] Author Status No 04/06/2022 2:59 AM CDT Anyi Rivera RN Active * Do you [...] st Contact Info) Description 10/18/2025 3:20 PM DEVELOPMENT LEAD Office Visit [facility] Medical Group Multispecialty Care - [facility] [address] [facility] [place] [phone] Jakub Adams MD [address] [facility] [address] [place] [phone] documented as of this encounter Goals Goal Patient Goal Type Associated Problems Recent Progress Patient-Stated? Author Health - patient able to perform ADLs independently General Chace Woodard RN documented as of this encounter Visit Diagnoses Not on filedocumented in this encounter Additional Health Concerns Assessment Noted Time PHQ-9 Depression Total Score: 0 03/15/20 23 3:07 PM CDT documented as of this encounter Care Teams Internet Sales Director Relationship Specialty Start Date End Date Shanna Mccormack DO [address] [place] [address] PCP - General FAMILY PRACTICE 10/05/22 documented as of this encounter
--- OUTSIDE RECORDS SUMMARY | 2025-07-06 11:26 | XMS_ITS | Clinical Summary ---
Author Organization [facility] Farhana Son Address [address] [place] [address] Care Team Providers Care Algology Teacher Name Role Phone Shanna Mccormack DO Primary Care Provider [phone] Allergies Active Allergy Reactions Criticality Noted Date [...] 4 Active fluticasone propionate (FLONASE) 50 mcg/spray [place], Suspension nasal inhaler Administer 2 Sprays in [...] Encounters Date Type Department Care Team Description 07/04/2025 Telephone [facility] Oncology and Hematology - [place] [address] [place] [address] Temo Stone MD labs for appt 06/26/2025 External Device Data [place] ABSTRACTION Provider, Abstract 06/26/2025 External Device Data [place] Provider, Abstract 06/26/2025 External Device Data [place] Provider, Abstract 06/26/2025 Orders Only [facility] Oncology and Hematology - [place] [address] [place] [address] Temo Stone MD 06/22/2025 Orders Only [facility] Oncology and Hematology - [place] [address] [place] [address] Temo Stone MD 06/21/2025 10:30 AM CDT Office Visit [facility] Oncology and Hematology - [place] [address] [place] [phone] Temo Stone MD Chronic anemia (Primary Dx); Other secondary thrombocytopenia 06/21/2025 Abstract [facility] Oncology and Hematology - [place] [address] Temo Stone MD 06/21/2025 Orders Only [facility] Oncology and Hematology - [place] [address] Temo Stone MD from Last 3 Months Family History Medical [...] on file Legal Sex Male 5:59 PM VOICE OVER ARTIST Gender Identity Not on file Sexual Orientation [...] Care Team (Late st Contact Info) Description 07/12/2025 4:30 PM CDT Telephone Check Up [facility] Oncology and Hematology - [place] [address] [facility] [address] [place] [address] Temo Stone MD [address] [facility] [employer] [address] [place] [address] Health Maintenance Due Date Last Done Comments Pre-Diabetes and Diabetes Screening 1970 HEPATITIS B VACCINES (1 of 3 - [...] history exists ZOSTER VACCINE Completed 02/17/2022, 11/12/2021 Procedures Procedure Name Priority Date/Time Associated Diagnosis Comments METHYLMALONIC ACID Routine 06/21/2025 4: 27 PM CDT TRANSFERRIN RECEPTOR TFR SOLUBLE Routine 06/21/2025 4:05 PM CDT COMPREHENSIVE METABOLIC PANEL Routine 06/21/2025 2:59 PM CDT COMPREHENSIVE METABOLIC PANEL Routine 06/21/2025 11:05 AM CDT from Last 3 Months Results * METHYLMALONIC ACID (06/21/2025 4:27 PM CDT) Blood us Temo Stone MD CHEMISTRY ORDERABLES Final Resu lt * TRANSFERRIN RECEPTOR TFR SOLUBLE (06/21/2025 4:05 PM CDT) Blood us Temo Stone MD CHEMISTRY ORDERABLES Final Resu lt * COMPREHENSIVE METABOLIC PANEL (06/21/2025 2:59 PM CDT) Only the most recent of2 resultswithin the time period is included. Blood us Temo Stone MD CHEMISTRY ORDERABLES Final Resu lt from Last 3 Months Insurance [facility] Care Teams Algology Teacher Relationship Specialty Start Date End Date Shanna Mccormack DO [address] [phone] PCP - General Family Practice 06/21/25
--- OUTSIDE RECORDS SUMMARY | 2025-07-06 11:26 | XMS_ITS | Encounter Summary ---
Author Organization [facility] Address [address] [place] [address] Care Team Providers Care Coke Loader Name Role Phone Matthew Willett DO Primary Care Provider [phone] Dai Bauer DO Primary Care Provider [phone] Ksenia Shanna DO Primary Care Provider [phone] Encounter Details Date Type Department Care Team (Late st Contact Info) Description 04/11/2021 [employer] Message Enc [facility] Medical Group Family Medicine - [address], [address] [place] [address] [employer], [facility] Provider Covid shot Social History Tobacco Use Types Packs/Day Years Used Date Smoking Tobacco: Never Smokeless Tobacco: Never Alcohol Use Standard Drinks/Week Comments Yes 0 (1 standard drink = 0.6 oz pur e alcohol) social use PHQ-2 Answer Date Recorded PHQ-2 Score - If the patient scores above 3, please move on to questions 3-9 0 02/25/2021 Education Answer Date Recorded What is the [...] as of this encounter Plan of Treatment Upcoming Encounters Date Type Department Care Team (Late st Contact Info) Description 10/18/2025 3:20 PM TECHNICAL APPLICATIONS SPECIALIST Office Visit [facility] Medical Group Multispecialty Care - [facility] [address] [place] [address] Jakub Adams MD [address] [place] [address] documented as of this encounter Visit Diagnoses Not on filedocumented in this encounter Additional Health Concerns Infection Onset Date Last Indicated Resolved Time COVID-19 Patient Reported Positive 04/06/2022202104/26/2022 12:32 AM CDT COVID-19 Rule Out 08/23/2023 08/23/2023 08/23/2023 8:18 AM CDT COVID-19 Rule Out 08/23/2023 08/23/2023 08/24/2023 4:18 PM CDT Assessment Noted Time PHQ-9 Depression Total Score: 0 02/26/20 8:37 AM CDT documented as of this encounter Care Teams Coke Loader Relationship Specialty Start Date End Date Matthew Willett DO PCP - General FAMILY PRACTICE 05/16/20 09/01/22 Dai Bauer DO [address] [place] [address] PCP - General FAMILY PRACTICE 09/02/22 10/04/22 Shanna Mccormack DO [address] [facility] [place] [address] PCP - General FAMILY PRACTICE 10/05/22 documented as of this encounter
--- OUTSIDE RECORDS SUMMARY | 2025-07-06 11:26 | XMS_ITS | Encounter Summary ---
Author Organization [facility] Address [address] [place] [address] Care Team Providers Care Splitter Head Name Role Phone Shanna Mccormack DO Primary Care Provider [phone] Encounter Details Date Type Department Care Team (Late st Contact Info) Description 08/07/2024 MyChart Message Enc [facility] Medical Group Family Medicine - [place] [address] [facility], [address] [place] [phone] KseniaNilsa jimenezaDO [address] [place] [address] Prescription Social History Tobacco Use Types Packs/Day Years Used Date Smoking Tobacco: Never Passive Smoke Exposure: Never Smokeless Tobacco: Never Alcohol Use Standard Drinks/Week Comments Yes 1.7 (1 standard drink = 0.6 oz p ure alcohol) social use PHQ-2 Answer Date Recorded Patient Health Questionnaire-2 Score 0 08/11/2024 Education Answer Date Recorded What is the [...] AM CDT Anyi Rivera RN Active * Because of [...] st Contact Info) Description 10/18/2025 3:20 PM GRAIN GRADER Office Visit [facility] Medical Group Multispecialty Care - [facility] [address] [facility] [place] [phone] Jakub Adams MD [address] [facility] [address] [place] [address] documented as of this encounter Goals Goal [...] documented as of this encounter Care Teams Splitter Head Relationship Specialty Start Date End Date Shanna Mccormack DO [address] [place] [address] PCP - General FAMILY PRACTICE 10/05/22 documented as of this encounter
--- OUTSIDE RECORDS SUMMARY | 2025-07-06 11:26 | XMS_ITS | Encounter Summary ---
Author Organization [facility] Address [address] [place] [address] Care Team Providers Care Guard Rail Installer Name Role Phone Shanna Mccormack DO Primary Care Provider [phone] Reason for Visit * Reason Comments Lab (SCAN) Encounter Details Date Type Department Care Team (Latest Contact Info) Description 06/21/2025 Scan [facility] Scanned, Doc Med Group Lab (SCAN) Social History Tobacco Use Types Packs/Day Years Used Date Smoking Tobacco: Never Passive Smoke Exposure: Never Smokeless Tobacco: Never Alcohol Use Standard Drinks/Week Comments Yes 1.7 (1 standard drink = 0.6 oz p ure alcohol) social use PHQ-2 Answer Date Recorded Patient Health Questionnaire-2 Score 0 03/05/2025 Education Answer Date Recorded What is the [...] Assessment Author Status No 04/06/2022 2:59 AM Anyi Torres RN Active * Do you have difficulty dressing or bathing? Answer Date of Assessment Author Status No 04/06/2022 2:59 AM Anyi Torres RN Active * Because of a physical, mental, or emotional condition, do you have difficulty doing errands alone such as visiting a doctor's office or shopping? Answer Date of Assessment Author Status No 04/06/2022 2:59 AM Anyi Torres RN Active documented as of this encounter Mental Status * Because of a physical, mental, or emotional condition, do you have serious difficulty concentrating, remembering, or making decisions? Answer Entry Date Author Status No 04/06/2022 2:59 AM Anyi Torres RN Active documented in this encounter Plan of Treatment Upcoming Encounters Date Type Department Care Team (Late st Contact Info) Description 10/18/2025 3:20 PM LIDAR ANALYST Office Visit [facility]pecialty Care - [facility] [address] [facility] [place] [address] Jakub Adams MD [address] [facility] [address] [place] [address] documented as of this encounter Goals Goal Patient Goal Type Associated Problems Recent Progress Patient-Stated? Author Health - patient able to perform ADLs independently General Chace Woodard RN documented as of this encounter Procedures Procedure Name Priority Date/Time Associated Diagnosis Comments OUTSIDE LAB (SCAN ORDER) 06/21/2025 OUTSIDE LAB (SCAN ORDER) 06/21/2025 OUTSIDE LAB (SCAN ORDER) 06/21/2025 OUTSIDE LAB (SCAN ORDER) 06/21/2025 OUTSIDE LAB (SCAN ORDER) 06/21/2025 OUTSIDE LAB (SCAN ORDER) 06/21/2025 documented in this encounter Results * OUTSIDE LAB (SCAN ORDER) (06/21/2025) 06/21/2025 us Doc [facility] Scanned SCANNING Final Resu lt * OUTSIDE LAB (SCAN ORDER) (06/21/2025) 06/21/2025 us Doc [facility] Scanned SCANNING Final Resu lt * OUTSIDE LAB (SCAN ORDER) (06/21/2025) 06/21/2025 us Doc [facility] Scanned SCANNING Final Resu lt * OUTSIDE LAB (SCAN ORDER) (06/21/2025) 06/21/2025 [facility] Group Scanned SCANNING Final Resu lt * OUTSIDE LAB (SCAN ORDER) (06/21/2025) 06/21/2025 us [facility] Med Group Scanned SCANNING Final Resu lt * OUTSIDE LAB (SCAN ORDER) (06/21/2025) 06/21/2025 Result [facility] Group Scanned SCANNING Final Resu lt documented in this encounter Visit Diagnoses Not on filedocumented in this encounter Additional Health Concerns Assessment Noted Time PHQ-9 Depression Total Score: 0 03/05/20 25 11:40 AM CDT documented as of this encounter Care Teams Guard Rail Installer Relationship Specialty Start Date End Date Shanna Mccormack DO [address] [place] [address] PCP - General FAMILY PRACTICE 10/05/22 documented as of this encounter
--- OUTSIDE RECORDS SUMMARY | 2025-07-06 11:26 | XMS_ITS | Encounter Summary ---
Author Organization [facility] Address [address] [place] [address] Phone Care Team Providers Care Assistant Professor Name Role Phone Matthew Willett Edniurka DO Primary Care Provider [phone] Shanna Mccormack DO Primary Care Provider [phone] Encounter Details Date Type Department Care Team [...] CDT Gender Identity Male 11/06/2019 8:11 AM SOCK LINING STITCHER Sexual Orientation Not on file documented as of this encounter Plan of Treatment Not on file documented as of this encounter Procedures Procedure Name Priority Date/Time Associated Diagnosis Comments SCAN - LABS 02/05/2020 documented in this encounter Results * SCAN - LABS (02/05/2020) us Provider Scanning Final Result documented in this encounter Visit Diagnoses Not on filedocumented in this encounter Care Teams Assistant Professor Relationship Specialty Start Date End Date Matthew Willett DO PCP - General Family Medicine 05/25/19 06/17/23 Shanna Mccormack DO [address] [address] PCP - General Family Medicine 06/18/23 documented as of this encounter
--- OUTSIDE RECORDS SUMMARY | 2025-07-06 11:26 | XMS_ITS | Encounter Summary ---
Author Organization [facility] Address [address] [place] [address] Care Team Providers Care Detacher Name Role Phone Shanna Mccormack DO Primary Care Provider [phone] Encounter Details Date Type Department Care Team (Late st Contact Info) Description 08/23/2023 [employer] Message Enc [facility] Medical Group Family Medicine - [place] [address] [facility], [address] [place] [address] [employer], [facility] Provider Test results Social History Tobacco Use Types Packs/Day [...] Status No 04/06/2022 2:59 AM CDT Anyi Rivera, MICAH Active * Because of a physical, mental, or emotional condition, do you have difficulty doing errands alone such as visiting a doctor's office or shopping? Answer Date of Assessment Author Status No 04/06/2022 2:59 AM CDT Anyi Rivera RN Active documented as of this encounter Mental Status * Because of a physical, mental, or emotional condition, do you have serious difficulty concentrating, remembering, or making decisions? Answer Entry Date Author Status No 04/06/2022 2:59 AM CDT Anyi Rivera RN Active documented in this encounter Plan of Treatment Upcoming Encounters Date Type Department Care Team (Late st Contact Info) Description 10/18/2025 3:20 PM PASSENGER CONDUCTOR Office Visit [facility] Medical [facility] - [facility] [address] [facility] [place] [phone] Jakub Adams MD [address] [facility] [address] [place] [address] documented as of this encounter Goals Goal [...] Time PHQ-9 Depression Total Score: 0 03/15/20 3:07 PM CDT documented as of this encounter Care Teams Detacher Relationship Specialty Start Date End Date Ksenia, Shanna, DO [address] [place] [address] PCP - General FAMILY PRACTICE 10/05/22 documented as of this encounter
--- OUTSIDE RECORDS SUMMARY | 2025-07-06 11:26 | XMS_ITS | Encounter Summary ---
Author Organization [facility] Address [address] [place] [address] Phone Care Team Providers Care Benefits Coordinator Name Role Phone No, Physician Primary Care Provider [phone] Matthew Willett DO Primary Care Provider [phone] Shanna Mccormack DO Primary Care Provider [phone] Encounter Details Date Type Department Care Team (Late st Contact Info) Description 03/15/2019 Orders Only [facility] Scanning, Provider Social History Tobacco Use Types Packs/Day Years Used Date Smoking Tobacco: Never Assessed Sex and Gender Information Value Date Recorded Sex Assigned at Not on file Legal Sex Male 9:56 AM CDT Gender Identity Male 11/06/2019 8:11 AM DRY JANITOR Sexual Orientation Not on file documented as [...] on filedocumented in this encounter Care Teams Benefits Coordinator Relationship Specialty Start Date End Date No, Physician PCP - General 02/27/19 05/24/19 Matthew Willett DO PCP - General Family Medicine 05/25/19 06/17/23 Shanna Mccormack DO [address] [facility] [address] [place] [address] PCP - General Family Medicine 06/18/23 documented as of this encounter
--- OUTSIDE RECORDS SUMMARY | 2025-07-06 11:26 | XMS_ITS | Clinical Summary ---
Author Organization [facility] Address [address] [place] [address] Care Team Providers Care Rhythmic Gymnastics Coach Name Role Phone Shanna Mccormack DO Primary Care Provider [phone] Allergies Active Allergy Reactions Criticality Noted Date Comments Hydrochlorothiazide Other (see comment) 024 hypokalemia Hydroxyzine Other (see comment) High 05/11/2022 Numbness and completley out of it for 24 hours per patient Medications Magnesium 400 MG Tab Take 400 mg by mouth daily. Active Flaxseed, Linseed, (FLAXSEED OIL OR) Take 1 capsule by mouth daily. Active vitamin D3, cholecalciferol, 1000 UNIT Tab tablet Take 1 tablet (1,000 Units total) by mouth daily. Active CPAP DEVICE, DME, 1 Device by Does not apply route nightly. Active clindamycin (CLEOCIN T) 1 % gelIndications:Ac ne vulgaris Apply on back daily 60 g 3 Active fexofenadine (JUAN DIEGO) 180 MG tabletIndications :Allergic rhinitis, unspecified seasonality, unspecified trigger Take 1 tablet (180 mg total) by mouth daily. 90 tablet 3 4 Active azelastine (OPTIVAR) 0.05 % ophthalmic solutionIndicatio ns:Encounter for well adult exam with abnormal findings Place 1 drop into both eyes 2 (two) times daily. 6 mL 6 4 Active Cvxxgvf-Hmbsrvm-R ethyl González 1.2-5.7-6.3 % Patch CAMPHOR/MENTHO L/METHYL SALICYLATE PATCH Active APPLY 1 PATCH TO SKIN SITE ONCE A DAY NEEDED (EXTERNAL USE ONLY) FOR PAIN Jun 12, 2024 60 Jun 13, 2025 [id number] Jun 12, 2024 ANTONINO GOLDMAN [facility] 4 Active diclofenac sodium (VOLTAREN) 1 % gel Apply 2 g topically 4 (four) times daily. 4 Active MILK THISTLE OR MILK THISTLE CAP/TAB Non-VA TAKE 1 CAP/TAB BY MOUTH Jun 12, 2024 Non-VA Documented by: ANTONINO GOLDMAN Documented at: [facility] 4 Active amLODIPine (NORVASC) 10 MG tabletIndications :Primary hypertension Take 1 tablet (10 mg total) by mouth daily. 90 tablet 1 5 Active valsartan (DIOVAN) 160 MG tabletIndications :Primary hypertension Take 1 tablet (160 mg total) by mouth daily. 90 tablet 1 5 Active fluticasone propionate (FLONASE) 50 MCG/ACT nasal sprayIndications: Allergic rhinitis, unspecified seasonality, unspecified trigger 2 sprays by Nasal route daily. 16 g 6 5 Active Active Problems Problem Noted Date Diagnosed Date Spinal stenosis of lumbar re gion without neurogenic claudication 03/15/2023 Lower urinary tract symptoms (LUTS) 03/15/2023 Multiple atypical skin moles 03/15/2023 NSTEMI (non-ST elevated myoc ardial infarction) ([facility]) 04/05/2022 Screening for colon cancer 05/26/2021 Overview (05/26/2021): Added automatically from request for surgery [id number] VIGNESH (obstructive sleep apnea) 05/16/2020 Eczema 05/16/2020 Overview (05/16/2020): Right leg Chronic lower back pain 05/16/2020 Essential hypertension 05/16/2020 Fatty liver 05/16/2020 Lumbar radiculopathy 12/06/2019 Class 2 obesity due to excess calories in adult 11/06/2019 Overview (05/16/2020): Last Assessment & Plan: Patient with weight 205 lbs and BMI 36.3 today. - Encouraged weight loss as below Elevated liver enzymes 11/06/2019 Overview (05/16/2020): Last Assessment & Plan: Most likely etiology is fatty liver disease [...] - Return to clinic in 9 months Allergic rhinitis Elevated LFTs Flat foot Hydrocele, bilateral Class 2 severe obesity due t o excess calories with serious comorbidity and body mass index (BMI) of 38.0 to 38.9 in adult Sleep apnea Resolved Problems Problem Noted Date Diagnosed Date Resolved Date COVID-19 02/25/2021 02/25/2021 Encounters Date Type Department Care Team Description 07/04/2025 Telephone [facility] [address], [address] [place] [address] Shanna Mccormack DO Referral 06/21/2025 Scan HEALTH INFO SRVCS Scanned, [facility] (SCAN) 06/11/2025 Scan HEALTH INFO SRVCS Scanned, [facility] 05/17/2025 Results Follow-Up [facility] [address], [address] [place] [phone] Shanna Mccormack DO XR ELBOW RT M3V 05/16/2025 3:54 PM CDT - 05/16/2025 11:59 PM CDT Hospital Encounter [facility] [address] [place] [address] Shanna Mccormack DO Discharge Disposition: Home or Self Care (Routine Discharge) 05/16/2025 3:00 PM CDT Office Visit [facility] [address], [address] [place] [address] Shanna Mccormack DO Elbow Pain (Pt c/o RT elbow pain since April 14. [facility] lab ) 05/16/2025 Travel 05/01/2025 Orders Only [facility] [address], [address] [place] [address] Shanna Mccormack DO 04/30/2025 Orders Only [facility] [address] [place] [address] Shanna Mccormack DO from Last 3 Months Immunizations Immunization Administration Dates Next Due Anthrax Vaccine 05/07/2000, 9,03/06/1999,10/04,09/19/1998,08/14/1998 FLUCELVAX (ccIIV3, TRIVALENT, 0.5mL) 09/02/2014 Fluzone 6 Months+ Quad (0.5 mL Prefilled Syringe) 09/30/2021 H1N1 Injectable 2008 Influenza 01/17/2010 Hepatitis A (Havrix [address]) 07/27/1996 Hepatitis B (Generic: Adult) 02/01/2015,07/07/20 14,03/03/2014 Influenza (FluMist) 10/06/2015, 3,09/16/2012,09/13,09/14/2009,09/15/2008,12/01/2007 ,10/30/2006,10/03/2005,01/03/2005 Influenza (Generic) 08/29/2023, 9,11/09/2018,10/06,08/30/2016,09/13/2010,02/04/2007 ,11/03/2003,01/06/2003,11/09/2000 Influenza Adult (Generic) 11/02/2019,10/2018,01/20/2018,09/02 MMR (MMRII) 01/02/1992 MODERNA COVID-19 (12+) MRNA, LNP-S, PF, 100 MCG/ 0.5 ML DOSE 03/11/2021 Meningococcal (Menomune) 02/28/2005,03/25/1998 Polio Opv (Generic) 02/29/1992 Shingrix 02/17/2022,11/12/2021 Small Pox 11/09/2005 Td (TDVAX) 09/02/2002,01/02/1992 Tdap (Generic) 09/16/2012 Typhoid (Typhim ) 09/02/2002 Typhoid Vi Polysaccharide Va cc 25 Mcg/0.5Ml Im Soln 02/28/2005,09/04/1999 Yellow Fever (YF- Vax) 09/02/2002,07/22/1992 Family History Medical History Relation Comments CVA Father Hypertension Father kidney failure Father Diabetes Mother Hypertension Mother Kidney Disease Mother Relation Status Comments Father Mother Social History Tobacco Use Types Packs/Day Years Used Date Smoking Tobacco: Never Passive Smoke Exposure: Never Smokeless Tobacco: Never Tobacco Cessation:Counseling Given: No Alcohol Use Standard Drinks/Week Comments Yes 1.7 [...] file Not on file Not on file Last Filed Vital Signs Vital Sign Reading Time Taken Comments Blood Pressure 128/80 05/16/2025 2:58 PM CDT Pulse 91 05/16/2025 2:58 PM CDT Temperature 36.4 C (97.6 F) 05/16/2025 2:58 PM CDT Respiratory Rate 16 05/16/2025 2:58 PM CDT Oxygen Saturation 97% 05/16/2025 2:58 PM CDT Inhaled Oxygen Concentration - - Weight 101.4 kg (223 lb 9.6 oz) 05/16/2025 2:58 PM CDT Height 157.5 cm (5' 2) 05/16/2025 2:58 PM CDT Body Mass Index 40.9 05/16/2025 2:58 PM CDT Plan of Treatment Upcoming Encounters Date Type Department Care Team (Late st Contact Info) Description 10/18/2025 3:20 PM TRAINING AND DEVELOPMENT REP Office Visit [facility] Multispecialty [facility] - [facility] [address] [place] [id number] Jakub Adams MD [address] [place], [place] [id number] Health Maintenance Due Date Last Done Comments Hepatitis C 1989 Pneumococcal Vaccine: 50+ Years (1 of 2 - PCV) 1990 DTaP, Tdap and Td Vaccines ( 2 - Td or Tdap) 09/16/2022 09/16/2012, 09/02/2002, 01/02/1992 COVID-19 Vaccine (3 - 2023-2 5 season) 2024 04/16/2021, 03/11/2021 Annual Physical 03/20/2025 03/20/2024, 03/15/2023, 02/25/2021 Colorectal Cancer Screening Colonoscopy (10 Years) 07/10/2031 07/10/2021 Meningococcal Vaccine Aged Out 02/28/2005 , 03/25/1998 No longer eligible based on patient's age to complete this topic Hepatitis B Vaccines Completed 02/01/2015, 07/07/2014, 03/03/2014 Zoster Vaccines Completed 02/17/2022, 11/12/2021 PHQ-2 (Physician [place]) Completed 03/05/2025 Meningococcal B Vaccine Aged Out No l onger eligible based on patient's age to complete this topic RSV Immunizations Under 20 Months Aged Out No longer eligible b ased on patient's age to complete this topic Goals Goal Patient Goal Type Associated Problems Recent Progress Patient-Stated? Author Health - patient able to perform ADLs independently General Chace Woodard security patrol officer Procedure Name Priority Date/Time Associated Diagnosis Comments OUTSIDE LAB (SCAN ORDER) 06/21/2025 OUTSIDE LAB (SCAN ORDER) 06/21/2025 OUTSIDE LAB (SCAN ORDER) 06/21/2025 OUTSIDE LAB (SCAN ORDER) 06/21/2025 OUTSIDE LAB (SCAN ORDER) 06/21/2025 OUTSIDE LAB (SCAN ORDER) 06/21/2025 XR ELBOW RT M3V Routine 05/16/2025 4:03 PM CDT Lateral epicondylitis of right elbow from Last 3 Months Results * OUTSIDE LAB (SCAN ORDER) (06/21/2025) Only the most recent of6 resultswithin the time period is included. 06/21/2025 [facility] Scanned SCANNING Final Resu lt * XR ELBOW RT M3V (05/16/2025 4:03 PM CDT) Anatomical Region Laterality Modality Elbow Radiographic Shannon ging 05/17/2025 2:21 AM CDT Impressions 05/17/2025 2:24 AM CDT IMPRESSION: No acute osseous abnormality identified. Referred By: Interpreted By: Nino Mendoza MD, 05/17/2025 2:21 AM Narrative 05/17/2025 2:24 AM CDT [address] [address] Examination: XR ELBOW RT M3V Exam time: 05/16/2025 3:55 PM Clinical history: RIGHT ELBOW PAIN , LATERAL PAIN SINCE APRIL 14 Comparison: No comparison. Technique: 3 views of the right elbow. Findings: No fracture or dislocation. Radiocapitellar alignment is preserved. Joint spaces are intact. No destructive bone process. No joint effusion or soft tissue abnormality. Procedure Note Nino Mendoza MD - 05/17/[address] [address] Examination: XR ELBOW RT M3V Exam time: 05/16/2025 3:55 PM Clinical history: RIGHT ELBOW PAIN , LATERAL PAIN SINCE APRIL 14 Comparison: No comparison. Technique: 3 views of the right elbow. Findings: No fracture or dislocation. Radiocapitellar alignment is preserved. Jointspaces are intact. No destructive bone process. No joint effusion or softtissue abnormality. IMPRESSION: No acute osseous abnormality identified. Referred By: Interpreted By: Nino Mendoza MD, 05/17/2025 2:21 AM us Shanna Mccormack DO GENERAL IMAGING Final Result from Last 3 Months Insurance Advance Directives * Full Code (Latest Code Status on File) Date Activated Date Inactivated Comments 04/05/2022 5:36 PM 04/07/2022 3:15 PM Care Teams Rhythmic Gymnastics Coach Relationship Specialty Start Date End Date Shanna Mccormack DO [address] [place] [address] PCP - General FAMILY PRACTICE 10/05/22
--- OUTSIDE RECORDS SUMMARY | 2025-07-06 11:26 | XMS_ITS | Encounter Summary ---
Author Organization [facility] Address [address] [place] [address] Care Team Providers Care Front End Developer Designer Name Role Phone Matthew Willett DO Primary Care Provider [phone] Dai Bauer DO Primary Care Provider [phone] Ksenia Shanna DO Primary Care Provider [phone] Encounter Details Date Type Department Care Team (Late st Contact Info) Description 06/06/2021 Prep for Procedure [facility] [place] [id number] Azar Cordon MD [address] [address] Social History Tobacco Use Types Packs/Day Years [...] st Contact Info) Description 10/18/2025 3:20 PM SPRAY UNIT FEEDER Office Visit [facility]ty Care - [facility] [address] [place] [address] Jakub Adams MD [address] [facility] [address] [place] [address] documented as of this encounter Visit Diagnoses Diagnosis Screening for colon cancer- Primary Special screening for malignant neoplasms, colon documented in this encounter Additional Health Concerns Infection Onset Date Last Indicated Resolved Time COVID-19 Patient Reported Positive 04/06/2022202104/26/2022 12:32 AM CDT COVID-19 Rule Out 08/23/2023 08/23/2023 08/23/2023 8:18 AM CDT COVID-19 Rule Out 08/23/2023 08/23/2023 08/24/2023 4:18 PM CDT Assessment Noted Time PHQ-9 Depression Total Score: 0 02/26/20 21 8:37 AM CDT documented as of this encounter Care Teams Front End Developer Designer Relationship Specialty Start Date End Date Matthew Willett DO PCP - General FAMILY PRACTICE 05/16/20 09/01/22 Dai Bauer DO [address] [place] [address] PCP - General FAMILY PRACTICE 09/02/22 10/04/22 Shanna Mccormack DO [address] [place] [address] PCP - General FAMILY PRACTICE 10/05/22 documented as of this encounter
--- OUTSIDE RECORDS SUMMARY | 2025-07-06 11:26 | XMS_ITS | Continuity of Care Document ---
Author Name [facility] Organization [facility] Care Team Providers Care Special Agent In Charge Name Role Phone [facility] Unavailable Unavailable Problems Combined list of problems from Department of Defense and [facility] Affairs facilities. It does not include entries that were removed or entered in error. Problem Status Onset Date Problem Type Date of Resolution Comments Source Other allergic rhinitis Active 8 Condition [facility] Essential (primary) hypertension Active 6 Condition [facility] Allergic Rhinitis ([facility] [id number]) Active Condition [facility] Chronic Dermatitis ([facility] [id number]) Active Condition [facility] Exposure to potentially hazardous substance Active Condition [facility] Generalized Anxiety Disorder ([facility] [id number]) Active Condition [facility] HTN - Hypertension ([facility] [id number]) Active Condition [facility] Hypertension Active Condition [facility] Joint pain Active Condition [facility] Left knee pain Active Condition [facility] Liver Function Tests Abnormal ([facility] [id number]) Active Condition [facility] Low back pain Active Condition [facility] Low Back Pain ([facility] [id number]) Active Condition [facility] Mixed Hyperlipidemia ([facility] [id number]) Active Condition [facility] Neck pain Active Condition [facility] Obesity ([facility] 141457371) Active Condition [facility] Obstructive Sleep Apnea Syndrome ([facility] 92459795) Active Condition Jul 08, 2020 Entered By: VIJAYA FREIRE Comment: 01/14/19 sleep study ([facility]), 03/28/19 cpap titration study: 9 cm h2o, cflex 3 with heated humidity [facility] Past history of procedure Active Condition Jun 18, 2020 Entered By: VIJAYA FREIRE Comment: 2016 oral surgery (receding gums)Jun 18, 2020 Entered By: VIJAYA FREIRE Comment: 1995 wisdom teeth extraction (4) [facility] Right hip pain Active Condition [facility] Steatosis of liver Active Condition [facility] Tinnitus ([facility] [id number]) Active Condition [facility] Other intervertebral disc displacement, lumbosacral region Active [...] ICD-10-CM I10 Essential (primary) hypertension Active Diagnosis [facility] Diagnosis: ICD-10-CM Z00.01 Encounter for general adult medical exam w abnormal findings Active Diagnosis [facility] Medications Combined list of outpatient medications from Department of Defense and [facility] Affairs facilities.Medications provided include 1) outpatient medications from the last 15 months, and 2) patient-reported medications. Medication Details Route Status Patient Instructions Prescription Expires Prescription Number Last Dispense Date Ordering Provider Order Date Order Qty Source AMLODIPINE BESYLATE 10MG TAB TAKE ONE TABLET BY MOUTH ONCE A DAY FOR HIGH BLOOD PRESSURE ORAL ACTIVE 09/26/2025 [id number] ME TAMIA TTISA 2024 90 [facility] AMLODIPINE BESYLATE 10MG TAB TAKE ONE TABLET BY MOUTH ONCE A DAY FOR HIGH BLOOD PRESSURE ORAL DISCONT INUED 07/02/2025 [id number] ME TAMIA TTISA 2024 90 [facility] AMLODIPINE BESYLATE 10MG TAB TAKE ONE TABLET BY MOUTH ONCE A DAY FOR HIGH BLOOD PRESSURE ORAL DISCONT INUED 04/08/2025 [id number] 5 ME TAMIA TTISA 2024 90 [facility] AMLODIPINE BESYLATE 10MG TAB TAKE ONE TABLET BY MOUTH ONCE A DAY FOR HIGH BLOOD PRESSURE ORAL DISCONT INUED 01/15/2025 [id number] ME TAMIA TTISA 2023 90 [facility] AMLODIPINE BESYLATE 10MG TAB TAKE ONE TABLET BY MOUTH ONCE A DAY FOR HIGH BLOOD PRESSURE ORAL DISCONT INUED 09/27/2024 [id number] CANTRELL,ME TTISA 2023 90 [facility] azelastine 0.05% eye drops [6mL] See Instruct [...] 3 2023 6.0 Ambulat ory Pharmac y CAMPHOR/MEN THOL/METHYL SALICYLATE PATCH APPLY 1 PATCH TO SKIN SITE ONCE A DAY NEEDED (EXTERNA L USE ONLY) TRANSD ERMAL 06/13/2025 [id number] ANTONINO ADAME D 2023 60 [facility] CHOLECALCIF MONCHO 25MCG (1,000UNIT) TAB TAKE ONE TABLET BY MOUTH ONCE A DAY ORAL ACTIVE SAVANNA GOLDMAN D 2023 [facility] DICLOFENAC NA 1% GEL,TOP APPLY 2 GM TO AFFECTED AREA(S) FOUR TIMES A DAY NEEDED DO NOT EXCEED MORE THAN 16 GRAMS DAILY TO ANY LOWER EXTREMIT Y JOINT. NOT MORE THAN 8 GRAMS DAILY TO ANY UPPER EXTREMIT Y JOINT. MAX 32GM/DAY OVER ALL JOINTS. (MEASURE DOSE WITH RULER ATTACHED INSIDE BOX) TOPICA L 06/13/2025 [id number] ANTONINO ADAME D 2023 300 [facility] Diovan HCT 160 mg- 25 mg tablet [...] EVERY MORNING FOR ALLERGIC RHINITIS ORAL 06/13/2025 [id number] ANTONINO ADAME 2023 90 [facility] FLAXSEED OIL CAP TAKE 1 CAPSULE BY MOUTH ONCE A DAY ORAL ACTIVE FELI FREIRE 2019 [facility] fluticasone 50 mcg/inh nasal spray USE TWO [...] MOUTH ONCE A DAY ORAL ACTIVE 12/07/2025 [id number] NANCY BOWEN 2024 90 [facility] HYDROCHLORO THIAZIDE 25MG TAB TAKE ONE TABLET BY MOUTH EVERY MORNING ORAL ACTIVE CHRISTY RUVALCABA 2015 [facility] HYDROCHLORO THIAZIDE 25MG/VALSAR MALLORY 160MG TAB TAKE ONE TABLET BY MOUTH ONCE A DAY ORAL ACTIVE PACE,VICT OR M 2020 [facility] MAGNESIUM OXIDE 400MG TAB TAKE ONE TABLET BY MOUTH ONCE A DAY ORAL ACTIVE PACE,VICT OR M 2019 [facility] MILK THISTLE CAP/TAB TAKE 1 CAP/TAB BY MOUTH ORAL ACTIVE SAVANNA GOLDMAN 2023 [facility] tretinoin 0.1% topical cream APPLY PEA SIZED [...] ORAL ACTIVE CHRISTY RUVALCABA 2015 [facility] Allergies, Adverse Reactions, Alerts Combined list of allergies from Department of Defense and Veterans Affairs facilities. It does not include entries that were removed or entered in error. Substance Category Reaction Severity Reaction type Status Date Reported Comments Source ATARAX Propensity to adverse reactions to drug (finding) Drowsy active 0 [facility] ATARAX (HYDROXYZINE HCL) Drug allergy (disorder) Drowsy, Fatigue - symptom, Other Reaction active 9 [facility] Ravi MCNEILL ([facility] hydrOXYzine Propensity to adverse reactions to drug Other Reaction Active 9 Unknown Organizati on Immunizations Combined list of available immunizations from the Department of Defense and Veterans Affairs facilities. Immunization Series Date Given Administered By Site Reaction Lot Number CVX Code Drug Alumni Relations Manager Status Comments Source INFLUENZA, UNSPECIFIED FORMULATION 2022 88 complet ed HISTORICA L INFORMATI ON - FROM OTHER PROVIDER, [facility] N ZOSTER RECOMBINANT 2 2021 187 complet ed HISTORICA L INFORMATI ON - FROM OTHER REGISTRY, [facility] N zoster recombinant 2021 ALUL, () Not Given zoster recombina nt DoD ZOSTER RECOMBINANT 1 2020 187 complet ed HISTORICA L INFORMATI ON - FROM OTHER [facility], [facility] N zoster recombinant 2020 ALUL, () Not Given zoster recombina nt DoD INFLUENZA, SPLIT VIRUS, QUADRIVALENT, PF 1 2020 150 complet ed HISTORICA L INFORMATI ON - FROM OTHER REGISTRY, [facility] COVID-19 (MODERNA), MRNA, LNP-S, PF, 100 MCG/0.5ML DOSE OR 50 MCG/0.25ML DOSE 2 2020 207 complet ed HISTORICA L INFORMATI ON - FROM OTHER REGISTRY, [facility] N COVID-19, mRNA, LNP-S, PF, 100 mcg or 50 mcg dose 2020 ALUL, () Not Given COVID-19, mRNA, LNP-S, PF, 100 mcg or 50 mcg dose DoD COVID-19 (MODERNA), MRNA, LNP-S, PF, 100 MCG/0.5ML DOSE OR 50 MCG/0.25ML DOSE 1 2020 207 complet ed HISTORICA L INFORMATI ON - FROM OTHER REGISTRY, [facility] N influenza, injectable, quadrivalent- pf 2018 [id number] 040 150 Seqirus complet ed influenza , injectabl e, quadrival ent-pf 11/02/19 Given Ambulat ory Pharmac y INFLUENZA, UNSPECIFIED FORMULATION 1 2018 88 complet ed HISTORICA L INFORMATI ON - FROM OTHER REGISTRY, [facility] N Influenza, injectable, quadrivalent, preservative free 20 2018 [id number] 040 150 Seqirus (SEQ) complet ed Influenza , injectabl e, quadrival ent, preservat rosalina free DoD influenza, injectable, quadrivalent- pf 2017 [id number] 150 GlaxoSmithKli ne complet ed influenza , injectabl e, quadrival ent-pf 11/09/18 Given Ambulat ory Pharmac y INFLUENZA, UNSPECIFIED FORMULATION 2 2017 88 complet ed HISTORICA L INFORMATI ON - FROM OTHER REGISTRY, [facility] Influenza, injectable, quadrivalent, preservative free 1 2017 [id number] 150 SmithKline (SKB) complet ed Influenza , injectabl e, quadrival ent, preservat rosalina free DoD INFLUENZA, UNSPECIFIED FORMULATION 1 2017 88 complet ed HISTORICA L INFORMATI ON - FROM OTHER REGISTRY, [facility] influenza, injectable, quadrivalent- pf 2017 [id number] 150 GlaxoSmithKli ne complet ed influenza , injectabl e, quadrival ent-pf 01/20/18 Given Ambulat ory Pharmac y Influenza, injectable, quadrivalent, preservative free 1 2017 [id number] 150 SmithKline (SKB) complet ed Influenza , injectabl e, quadrival ent, preservat rosalina free DoD influenza, seasonal, injectable-pf 2015 [id number] 140 Seqirus complet ed influenza , seasonal, injectabl e-pf 08/30/16 Given Ambulat ory Pharmac y Influenza, seasonal, injectable, preservative free 17 2015 [id number] 140 Seqirus (SEQ) comple t ed Influenza , seasonal, injectabl e, preservat rosalina free DoD influenza, live, intranasal,qu adrivalent 2014 [id number] 149 Medimmune Inc comple t ed influenza , live, intranasa l,quadriv alent 10/06/15 Given Ambulat ory Pharmac y influenza, live, intranasal, quadrivalent 16 2014 [id number] 149 MedIPlurality, Inc. (MED) complet ed influenza , live, intranasa l, quadrival ent DoD hepatitis B adult vaccine 2014 [id number] 43 Merck & Company Inc complet ed hepatitis B adult vaccine 02/01/15 Given Ambulat ory Pharmac y hepatitis B vaccine, adult dosage 3 2014 [id number] 43 Merck (MSD) complet ed hepatitis B vaccine, adult dosage DoD Influenza, injectable, MDCK-pf 2013 [id number] 153 Novartis [place] complet ed Influenza , injectabl e, MDCK-pf 09/02/14 Given Ambulat ory Pharmac y Influenza, injectable, Madin Ana Canine Kidney, preservative free 15 2013 [id number] 153 Strut. (NOV) complet ed Influenza , injectabl e, Madin Chrisney Canine Kidney, preservat rosalina free DoD hepatitis B adult vaccine 2013 [id number] 43 Merck & Company Inc complet ed hepatitis B adult vaccine 07/07/14 Given Ambulat ory Pharmac y hepatitis B vaccine, adult dosage 2 2013 [id number] 43 Merck (MSD) complet ed hepatitis B vaccine, adult dosage DoD hepatitis B adult vaccine 2013 [id number] 43 Merck & Company Inc complet ed hepatitis B adult vaccine 03/03/14 Given Ambulat ory Pharmac y hepatitis B vaccine, adult dosage 1 2013 [id number] 43 Merck (MSD) complet ed hepatitis B vaccine, adult dosage DoD influenza, live, intranasal,qu adrivalent 2012 [id number] 149 Mediune Inc comple t ed influenza , live, intranasa l,quadriv alent 10/01/13 Given Ambulat ory Pharmac y influenza, live, intranasal, quadrivalent 14 2012 [id number] 149 MedImmune, Inc. (MED) complet ed influenza , live, intranasa l, quadrival ent DoD tetanus, diphtheria, acellular pertu is 2011 [id number] 115 sanofi pasteur complet ed tetanus, diphtheri a, acellular pertussis 09/16/12 Given Ambulat ory Pharmac y influenza virus vaccine, live 2011 [id number] 111 Medimmune Inc comple t ed influenza virus vaccine, live 09/16/12 Given Ambulat ory Pharmac y TDAP 2011 115 complet ed [facility] influenza virus vaccine, live, attenuated, for intranasal use 13 2011 [id number] 111 MedImmune, Inc. (MED) complet ed influenza virus vaccine, live, attenuate d, for intranasa l use DoD tetanus toxoid, reduced diphtheria toxoid, and acellular pertu is vaccine, adsorbed 0 2011 [id number] 115 Sanofi Pasteur (PMC) complet ed tetanus toxoid, reduced diphtheri a toxoid, and acellular pertussis vaccine, adsorbed DoD influenza virus vaccine, live 2010 [id number] 111 Medimmune Inc comple t ed influenza virus vaccine, live 09/13/11 Given Ambulat ory Pharmac y influenza virus vaccine, live, attenuated, for intranasal use 1 2010 [id number] 111 MedImmune, Inc. (MED) complet ed influenza virus vaccine, live, attenuate d, for intranasa l use [facility] influenza virus vaccine,split 2009 [id number] 15 sanofi pasteur complet ed influenza virus vaccine,s plit 09/13/10 Given Ambulat ory Pharmac y influenza virus vaccine, split virus (incl. purified surface antigen)-reti red CODE 1 2009 [id number] 15 [facility] (PMC) complet ed influenza virus vaccine, split virus (incl. purified surface antigen)- retired CODE DoD Novel influenza-H1N 1-09, injectable 2009 [id number] 127 Novartis Pharmaceutica complet ed Novel influenza -[id number], injectabl e 01/17/10 Given Ambulat ory Pharmac y Novel influenza-H1N 1-09, injectable 1 2009 [id number] [id number] 127 Novartis Pharmaceutica l Letty. (NOV) complet ed Novel influenza -[id number], injectabl e DoD influenza virus vaccine, live 2008 [id number] 111 Medimmune Inc comple t ed influenza virus vaccine, live 09/14/09 Given Ambulat ory Pharmac y influenza virus vaccine, live, attenuated, for intranasal use 1 2008 [id number] 111 MedImmune, Inc. (MED) complet ed influenza virus vaccine, live, attenuate d, for intranasa l use DoD influenza virus vaccine, live 2007 [id number] 111 Medimmune Inc comple t ed influenza virus vaccine, live 09/15/08 Given Ambulat ory Pharmac y influenza virus vaccine, live, attenuated, for intranasal use 1 2007 [id number] 111 MedImmune, Inc. (MED) complet ed influenza virus vaccine, live, attenuate d, for intranasa l use DoD influenza virus vaccine, live 2007 [id number] 111 Medimmune Inc comple t ed influenza virus vaccine, live 12/01/07 Given Ambulat ory Pharmac y influenza virus vaccine, live, attenuated, for intranasal use 1 2007 [id number] 111 MedImmune, Inc. (MED) complet ed influenza virus vaccine, [...] l use DoD vaccinia (smallpox) vaccine 2004 [id number] 75 Categorical complet ed vaccinia (smallpox ) vaccine 11/09/05 Given Ambulat ory Pharmac y vaccinia (smallpox) vaccine 1 2004 [id number] 75 [facility] ([facility]) complet ed vaccinia (smallpox ) vaccine DoD influenza virus vaccine, live 2004 [id number] 111 [employer] [facility] t ed influenza virus vaccine, live 10/03/05 Given Ambulat ory Pharmac y influenza virus vaccine, live, attenuated, for intranasal use 1 2004 [id number] 111 [employer] (MED) complet ed influenza virus vaccine, live, attenuate d, for intranasa l use [facility] typhoid vaccine, inactivated 2004 [id number] 101 sanofi pasteur complet ed typhoid vaccine, inactivat ed 02/28/05 Given Ambulat ory Pharmac y meningococcal polysaccharid e (MPSV4) 2004 [id number] 32 sanofi pasteur complet ed meningoco ccal polysacch aride (MPSV4) 02/28/05 Given Ambulat ory Pharmac y meningococcal polysaccharid e vaccine (MPSV4) 1 2004 [id number] 32 Sanofi Pasteur (PMC) complet ed meningoco ccal polysacch aride vaccine (MPSV4) [facility] typhoid vaccine, parenteral, other than acetone-kille d, dried 1 2004 [id number] 41 Sanofi Pasteur (PMC) complet ed typhoid vaccine, parentera l, other than acetone-k illed, dried DoD influenza virus vaccine, live 2004 [id number] 111 JJ PHARMA Inc comple t ed influenza virus vaccine, live 01/03/05 Given Ambulat ory Pharmac y influenza virus vaccine, live, attenuated, for intranasal use 0 2004 [id number] 111 [employer] (MED) complet ed influenza virus vaccine, live, attenuate d, for intranasa l use DoD influenza virus vaccine, whole virus 2002 [id number] 16 Novartis Pharmaceutica ls complet ed influenza virus vaccine, whole virus 11/03/03 Given Ambulat ory Pharmac y influenza virus vaccine, whole virus 0 2002 [id number] 16 [employer] (PWJ) complet ed influenza virus vaccine, whole virus [facility] influenza virus vaccine, whole virus 2002 [id number] 16 sanofi pasteur complet ed influenza virus vaccine, whole virus 01/06/03 Given Ambulat ory Pharmac y influenza virus vaccine, whole virus 0 2002 [id number] 16 Sanofi Pasteur (PMC) complet ed influenza virus vaccine, whole virus [facility] typhoid Vi capsular polysaccharid e vac 2001 [id number] 101 sanofi pasteur complet ed typhoid Vi capsular polysacch aride vac 09/02/02 Given Ambulat ory Pharmac y tetanus-dipht h toxoids (Td) adult/adol 2001 [id number] 09 [facility] tetanus-d iphth toxoids (Td) adult/ado l 09/02/02 Given Ambulat ory Pharmac y yellow fever vaccine 2001 [id number] 37 sanofi pasteur complet ed yellow fever vaccine 09/02/02 Given Ambulat ory Pharmac y tuberculin purified protein derivative 2001 zzLef t Arm [id number] 96 [facility] Patient Tolerance : Negative Ambulat ory Pharmac y tetanus and diphtheria toxoids, adsorbed, preservative free, for adult use (2 Lf of tetanus toxoid and 2 Lf of diphtheria toxoid) 0 10/05/ 2002 [id number] 09 [facility] (CON) complet ed tetanus and diphtheri a toxoids, adsorbed, preservat rosalina free, for adult use (2 Lf of tetanus toxoid and 2 Lf of diphtheri a toxoid) DoD yellow fever vaccine 0 2001 [id number] 37 Sanofi Pasteur ([facility]) complet ed yellow fever vaccine DoD tuberculin skin test; purified protein derivative solution, intradermal 1 2001 Unknown, Provider [id number] [facility] ([facility] complet ed tuberculi n skin test; purified protein derivativ e solution, intraderm al DoD typhoid Vi capsular polysaccharid e vaccine 0 2001 [id number] 101 Sanofi Pasteur ([facility]) complet ed typhoid Vi capsular polysacch aride vaccine DoD influenza virus vaccine, whole virus 1999 [id number] 16 Categorical complet ed influenza virus vaccine, whole virus 11/09/00 Given Ambulat ory Pharmac y influenza virus vaccine, whole virus 0 1999 [id number] 16 [facility] ([facility]) complet ed influenza virus vaccine, whole virus DoD varicella virus vaccine 1 1999 21 () Not Given varicella virus vaccine DoD anthrax vaccine 1999 [id number] 24 [employer] complet ed anthrax vaccine 05/07/00 Given Ambulat ory Pharmac y anthrax vaccine 6 1999 [id number] 24 [facility] ([facility]) complet ed anthrax vaccine DoD tuberculin purified protein derivative 1999 [id number] 96 [facility] complet ed Patient Tolerance : Negative Ambulat ory Pharmac y tuberculin skin test; purified protein derivative solution, intradermal 1 1999 Unknown, Provider [id number] [employer] (CON) complet ed tuberculi n skin test; purified protein derivativ e solution, intraderm al DoD typhoid vaccine, inactivated 1998 [id number] 101 [facility] complet ed typhoid vaccine, inactivat ed 09/04/99 Given Ambulat ory Pharmac y anthrax vaccine 1998 [id number] 24 [employer] complet ed anthrax vaccine 09/04/99 Given Ambulat ory Pharmac y anthrax vaccine 5 1998 [id number] 24 [employer] [place] ([facility]) complet ed anthrax vaccine DoD typhoid vaccine, parenteral, other than acetone-kille d, dried 0 1998 [id number] 41 [place] (CON) complet ed typhoid vaccine, parentera l, other than acetone-k illed, dried DoD anthrax vaccine 1998 [id number] 24 [employer] complet ed anthrax vaccine 03/06/99 Given Ambulat ory Pharmac y anthrax vaccine 4 1998 [id number] 24 [employer] [place] ([facility]) complet ed anthrax vaccine DoD anthrax vaccine 1997 [id number] 24 [employer] complet ed anthrax vaccine 10/04/98 Given Ambulat ory Pharmac y anthrax vaccine 3 1997 [id number] 24 [employer] [place] ([facility]) complet ed anthrax vaccine DoD anthrax vaccine 1997 [id number] 24 [employer] complet ed anthrax vaccine 09/19/98 Given Ambulat ory Pharmac y anthrax vaccine 2 1997 [id number] 24 [employer] [place] ([facility]) complet ed anthrax vaccine DoD anthrax vaccine 1997 [id number] 24 [employer] complet ed anthrax vaccine 08/14/98 Given Ambulat ory Pharmac y anthrax vaccine 1 1997 [id number] 24 [employer] [facility] ([facility]) complet ed anthrax vaccine DoD tuberculin [...] intradermal 1 1997 Unknown, Provider [id number] [place] (CON) complet ed tuberculi n skin test; purified protein derivativ e solution, intraderm al DoD hepatitis A adult vaccine 1995 [id number] 52 Merck & Company Inc complet ed hepatitis A adult vaccine 07/27/96 Given Ambulat ory Pharmac y hepatitis A vaccine, adult dosage 2 1995 [id number] 52 Merck (MSD) complet ed hepatitis A vaccine, adult dosage DoD yellow fever vaccine [id number] [employer] complet ed yellow fever vaccine 07/22/92 Given Ambulat ory Pharmac y yellow fever vaccine 0 [id number] [place] (CON) complet ed yellow fever vaccine DoD poliovirus vaccine, live, oral 1991 [id number] 02 [facility] complet ed polioviru s vaccine, live, oral 02/29/92 Given Ambulat ory Pharmac y trivalent poliovirus vaccine, live, oral 0 1991 [id number] 02 [facility] (LED) comple t ed trivalent polioviru s vaccine, live, oral DoD measles/mumps /rubella virus vaccine 1991 UKN 03 [employer] complet ed measles/m umps/rube lla virus vaccine 01/02/92 Given Ambulat ory Pharmac y tetanus-dipht h toxoids (Td) adult/adol 1991 UKN 09 Merck & Company Inc complet ed tetanus-d iphth toxoids (Td) adult/ado l 01/02/92 Given Ambulat ory Pharmac y measles, mumps and rubella virus vaccine 0 1991 UKN 03 [place] (CON) complet ed measles, mumps and rubella [...] Jun 12, 2024 10:48 AM Reporting Lab: [address] [address] Performing Lab: [address] [phone] [place] [address] CBC ERYTHROCYTES [#/VOLUME] IN BLOOD BY AUTOMATED COUNT 5.49 10*6/u L 4.10 - 5.70 06/29 Specimen Type: BLOOD No comment entered. Ordering Provider: RADHA GOLDMAN Report Released Date/Time: Jun 12, 2024 10:48 AM Reporting Lab: [address] [address] Performing Lab: [address] [id number] CBC HEMOGLOBIN [MASS/VOLUME ] IN BLOOD 15.7 g/dL 13.1 - 16.8 06/29 Specimen Type: BLOOD No comment entered. Ordering Provider: RADHA GOLDMAN Report Released Date/Time: Jun 12, 2024 10:48 AM Reporting Lab: [address] [address] Performing Lab: [address] [id number] [place] [address] CBC HEMATOCRIT [VOLUME FRACTION] OF BLOOD 47.3 38.2 - 48.4 06/29 Specimen Type: BLOOD No comment entered. Ordering Provider: RADHA GOLDMAN Report Released Date/Time: Jun 12, 2024 10:48 AM Reporting Lab: [address] [address] Performing Lab: [address] [address] [facility] CBC MCV [ENTITIC VOLUME] BY AUTOMATED COUNT 86.2 fL 80.0 - 100.0 06/29 Specimen Type: BLOOD No comment entered. Ordering Provider: RADHA GOLDMAN Report Released Date/Time: Jun 12, 2024 10:48 AM Reporting Lab: [facility] [address] [place] [phone] Performing Lab: [facility] [address] [place] [phone] [facility] CBC MCH [ENTITIC MASS] BY AUTOMATED COUNT 28.6 pg 27.0 - 34.0 06/29 Specimen Type: BLOOD No comment entered. Ordering Provider: RADHA GOLDMAN Report Released Date/Time: Jun 12, 2024 10:48 AM Reporting Lab: [facility] [address] [place] [phone] Performing Lab: [address] [phone] [place] [address] CBC MCHC [MASS/VOLUME ] BY AUTOMATED COUNT 33.2 g/dL 33.0 - 36.0 06/29 Specimen Type: BLOOD No comment entered. Ordering Provider: RADHA GOLDMAN Report Released Date/Time: Jun 12, 2024 10:48 AM Reporting Lab: [facility] [address] [place] [phone] Performing Lab: [facility] [address] [place] [phone] [place] [address] CBC PLATELETS [#/VOLUME] IN BLOOD BY AUTOMATED COUNT 148 10*3/u L 150 - 400 06/29 L Specimen Type: BLOOD No comment entered. Ordering Provider: RADHA GOLDMAN Report Released Date/Time: Jun 12, 2024 10:48 AM Reporting Lab: [facility] [address] [place] [phone] Performing Lab: [facility] [address] [place] [phone] [facility] CBC PLATELET MEAN VOLUME [ENTITIC VOLUME] IN BLOOD BY AUTOMATED COUNT 11.2 fL 7.5 - 11.2 06/29 Specimen Type: BLOOD No comment entered. Ordering Provider: RADHA GOLDMAN Report Released Date/Time: Jun 12, 2024 10:48 AM Reporting Lab: [facility] [address] [facility] [address] Performing Lab: [facility] [address] [facility] [address] [facility] CBC ERYTHROCYTE DISTRIBUTION WIDTH [RATIO] BY AUTOMATED COUNT 13.5 11.8 - 15.1 06/29 Specimen Type: BLOOD No comment entered. Ordering Provider: RADHA GOLDMAN Report Released Date/Time: Jun 12, 2024 10:48 AM Reporting Lab: [facility] [address] [facility] [address] Performing Lab: [facility] [address] [facility] [phone] [place] [address] CBC LYMPHOCYTES/ 100 LEUKOCYTES IN BLOOD BY AUTOMATED COUNT 39 06/29 Specimen Type: BLOOD No comment entered. Ordering Provider: RADHA GOLDMAN Report Released Date/Time: Jun 12, 2024 10:48 AM Reporting Lab: [facility] [address] [facility] [address] Performing Lab: [facility] [address] [place] [address] [facility] CBC MONOCYTES/10 0 LEUKOCYTES IN BLOOD BY AUTOMATED COUNT 7 06/29 Specimen Type: BLOOD No comment entered. Ordering Provider: RADHA GOLDMAN Report Released Date/Time: Jun 12, 2024 10:48 AM Reporting Lab: [facility] [address] [facility] [address] Performing Lab: [facility] [address] [facility] [address] [facility] CBC NEUTROPHILS/ 100 LEUKOCYTES IN BLOOD BY AUTOMATED COUNT 50 06/29 Specimen Type: BLOOD No comment entered. Ordering Provider: RADHA GOLDMAN Report Released Date/Time: Jun 12, 2024 10:48 AM Reporting Lab: [facility] [address] [place] [phone] Performing Lab: [facility] [address] [facility] CBC EOSINOPHILS/ 100 LEUKOCYTES IN BLOOD BY AUTOMATED COUNT 4 06/29 Specimen Type: BLOOD No comment entered. Ordering Provider: RADHA GOLDMAN Report Released Date/Time: Jun 12, 2024 10:48 AM Reporting Lab: [facility] [address] Performing Lab: [address] [address] [facility] CBC BASOPHILS/10 0 LEUKOCYTES IN BLOOD BY AUTOMATED COUNT 1 06/29 Specimen Type: BLOOD No comment entered. Ordering Provider: RADHA GOLDMAN Report Released Date/Time: Jun 12, 2024 10:48 AM Reporting Lab: [address] [address] Performing Lab: [address] [address] [facility] CBC LYMPHOCYTES [#/VOLUME] IN BLOOD BY AUTOMATED COUNT 2.30 10*3/u L 0.77 - 4.50 06/29 Specimen Type: BLOOD No comment entered. Ordering Provider: RADHA GOLDMAN Report Released Date/Time: Jun 12, 2024 10:48 AM Reporting Lab: [facility] [address] Performing Lab: [place] [address] [facility] [address] [facility] CBC MONOCYTES [#/VOLUME] IN BLOOD BY AUTOMATED COUNT 0.43 10*3/u L 0.19 - 0.80 06/29 Specimen Type: BLOOD No comment entered. Ordering Provider: RADHA GOLDMAN Report Released Date/Time: Jun 12, 2024 10:48 AM Reporting Lab: [facility] [address] [place] [phone] Performing Lab: [address] [address] [facility] CBC NEUTROPHILS [#/VOLUME] IN BLOOD BY AUTOMATED COUNT 2.97 10*3/u L 2.10 - 8.00 06/29 Specimen Type: BLOOD No comment entered. Ordering Provider: RADHA GOLDMAN Report Released Date/Time: Jun 12, 2024 10:48 AM Reporting Lab: [address] [address] Performing Lab: [place] [id number] CBC EOSINOPHILS [#/VOLUME] IN BLOOD BY AUTOMATED COUNT 0.23 10*3/u L 0.00 - 0.60 06/29 Specimen Type: BLOOD No comment entered. Ordering Provider: RADHA GOLDMAN Report Released Date/Time: Jun 12, 2024 10:48 AM Reporting Lab: [address] [address] Performing Lab: [address] [phone] [place] [address] CBC BASOPHILS [#/VOLUME] IN BLOOD BY AUTOMATED COUNT 0.03 10*3/u L 0.00 - 0.20 06/29 Specimen Type: BLOOD No comment entered. Ordering Provider: RADHA GOLDMAN Report Released Date/Time: Jun 12, 2024 10:48 AM Reporting Lab: [address] [address] Performing Lab: [address] [phone] COMPREHENSI VE METABOLIC PANEL CREATININE [MASS/VOLUME ] IN SERUM OR PLASMA 0.95 mg/dL 0.7 - 1.3 06/29 Specimen Type: PLASMA Comment: No hemolysis noted. Ordering Provider: RADHA GOLDMAN Report Released Date/Time: Jun 12, 2024 10:48 AM Reporting Lab: [facility] [address] [facility] [address] Performing Lab: [facility] [address] [facility] [address] [facility] COMPREHENSI VE METABOLIC PANEL UREA NITROGEN [MASS/VOLUME ] IN SERUM OR PLASMA 17.4 mg/dL 9.0 - 25.0 06/29 Specimen Type: PLASMA Comment: No hemolysis noted. Ordering Provider: RADHA GOLDMAN Report Released Date/Time: Jun 12, 2024 10:48 AM Reporting Lab: [facility] [address] [facility] [address] Performing Lab: [facility] [address] [place] [address] [facility] COMPREHENSI VE METABOLIC PANEL GLUCOSE [MASS/VOLUME ] IN SERUM OR PLASMA 89 mg/dL 72 - 99 06/29 Specimen Type: PLASMA Comment: No hemolysis noted. Ordering Provider: RADHA GOLDMAN Report Released Date/Time: Jun 12, 2024 10:48 AM Reporting Lab: [facility] [address] [facility] [address] Performing Lab: [facility] [address] [place] [address] [facility] COMPREHENSI VE METABOLIC PANEL SODIUM [MOLES/VOLUM E] IN SERUM OR PLASMA 143 meq/L 136 - 145 06/29 Specimen Type: PLASMA Comment: No hemolysis noted. Ordering Provider: RADHA GOLDMAN Report Released Date/Time: Jun 12, 2024 10:48 AM Reporting Lab: [facility] [address] [facility] [address] Performing Lab: [facility] [address] [place] [address] [facility] COMPREHENSI VE METABOLIC PANEL POTASSIUM [MOLES/VOLUM E] IN SERUM OR PLASMA 3.6 meq/L 3.5 - 5 06/29 Specimen Type: PLASMA Comment: No hemolysis noted. Ordering Provider: RADHA GOLDMAN Report Released Date/Time: Jun 12, 2024 10:48 AM Reporting Lab: [facility] [address] [place] [address] Performing Lab: [facility] [address] [place] [address] [facility] COMPREHENSI VE METABOLIC PANEL CHLORIDE [MOLES/VOLUM E] IN SERUM OR PLASMA 107 meq/L 98 - 107 06/29 Specimen Type: PLASMA Comment: No hemolysis noted. Ordering Provider: RADHA GOLDMAN Report Released Date/Time: Jun 12, 2024 10:48 AM Reporting Lab: [address] [address] Performing Lab: [facility] [address] [place] [address] [phone] [place] [address] COMPREHENSI VE METABOLIC PANEL CARBON DIOXIDE, TOTAL [MOLES/VOLUM E] IN SERUM OR PLASMA 26 meq/L 22 - 31 06/29 Specimen Type: PLASMA Comment: No hemolysis noted. Ordering Provider: RADHA GOLDMAN Report Released Date/Time: Jun 12, 2024 10:48 AM Reporting Lab: [facility] [address] [place] [phone] Performing Lab: [address] [address] [facility] COMPREHENSI VE METABOLIC PANEL CALCIUM [MASS/VOLUME ] IN SERUM OR PLASMA 9.2 mg/dL 8.4 - 10.4 06/29 Specimen Type: PLASMA Comment: No hemolysis noted. Ordering Provider: RADHA GOLDMAN Report Released Date/Time: Jun 12, 2024 10:48 AM Reporting Lab: [facility] [address] [place] [phone] Performing Lab: [address] [address] [facility] COMPREHENSI VE METABOLIC PANEL PROTEIN [MASS/VOLUME ] IN SERUM OR PLASMA 7.7 g/dL 6 - 8.6 06/29 Specimen Type: PLASMA Comment: No hemolysis noted. Ordering Provider: RADHA GOLDMAN Report Released Date/Time: Jun 12, 2024 10:48 AM Reporting Lab: [facility] [address] [facility] [address] Performing Lab: [facility] [address] [facility] [address] [facility] COMPREHENSI VE METABOLIC PANEL ALBUMIN [MASS/VOLUME ] IN SERUM OR PLASMA 4.2 g/dL 3.4 - 5 06/29 Specimen Type: PLASMA Comment: No hemolysis noted. Ordering Provider: RADHA GOLDMAN Report Released Date/Time: Jun 12, 2024 10:48 AM Reporting Lab: [facility] [address] [place] [phone] Performing Lab: [facility] [address] [place] [phone] [place] [address] COMPREHENSI VE METABOLIC PANEL BILIRUBIN.TO PEDRO [MASS/VOLUME ] IN SERUM OR PLASMA 0.5 mg/dL 0.2 - 1.2 06/29 Specimen Type: PLASMA Comment: No hemolysis noted. Ordering Provider: RADHA GOLDMAN Report Released Date/Time: Jun 12, 2024 10:48 AM Reporting Lab: [facility] [address] [place] [phone] Performing Lab: [facility] [address] [place] [address] [facility] COMPREHENSI VE METABOLIC PANEL ALKALINE PHOSPHATASE [ENZYMATIC ACTIVITY/VOL UME] IN SERUM OR PLASMA 63 U/L 40 - 150 06/29 Specimen Type: PLASMA Comment: No hemolysis noted. Ordering Provider: RADHA GOLDMAN Report Released Date/Time: Jun 12, 2024 10:48 AM Reporting Lab: [facility] [address] [place] [phone] Performing Lab: [facility] [address] [place] [address] [facility] COMPREHENSI VE METABOLIC PANEL ASPARTATE AMINOTRANSFE RASE [ENZYMATIC ACTIVITY/VOL UME] IN SERUM OR PLASMA 41 U/L 5 - 34 06/29 H Specimen Type: PLASMA Comment: No hemolysis noted. Ordering Provider: RADHA GOLDMAN Report Released Date/Time: Jun 12, 2024 10:48 AM Reporting Lab: [facility] [address] [facility] [address] Performing Lab: [place] [address] [facility] [phone] [place] [address] COMPREHENSI VE METABOLIC PANEL ALANINE AMINOTRANSFE RASE [ENZYMATIC ACTIVITY/VOL UME] IN SERUM OR PLASMA 78 U/L 8 - 40 06/29 H Specimen Type: PLASMA Comment: No hemolysis noted. Ordering Provider: RADHA GOLDMAN Report Released Date/Time: Jun 12, 2024 10:48 AM Reporting Lab: [place] [address] [facility] [address] Performing Lab: [place] [address] [facility] [phone] [place] [address] COMPREHENSI VE METABOLIC PANEL GLOMERULAR FILTRATION RATE/1.73 SQ M.PREDICTED [VOLUME RATE/AREA] IN SERUM, PLASMA OR BLOOD BY CREATININE-B ASED FORMULA (CKD-EPI 2020) 95.7 60 06/29 Specimen Type: PLASMA Comment: No hemolysis noted. Ordering Provider: RADHA GOLDMAN Report Released Date/Time: Jun 12, 2024 10:48 AM Reporting Lab: [place] [address] [facility] [address] Performing Lab: [place] [address] [facility] [phone] [place] [address] HGA1C HEMOGLOBIN A1C/HEMOGLOB IN.TOTAL IN BLOOD 5.2 4.0 - 6.0 06/29 Specimen Type: BLOOD No comment entered. Ordering Provider: RADHA GOLDMAN Report Released Date/Time: Jun 12, 2024 10:48 AM Reporting Lab: [place] [address] [facility] [address] Performing Lab: [facility] [address] [facility] [address] [facility] LIPID PANEL (STL) CHOLESTEROL [MASS/VOLUME ] IN SERUM OR PLASMA 171 mg/dL 0 - 200 06/29 Specimen Type: PLASMA Comment: No hemolysis noted. Ordering Provider: RADHA GOLDMAN Report Released Date/Time: Jun 12, 2024 10:48 AM Reporting Lab: [facility] [address] [facility] [address] Performing Lab: [facility] [address] [facility] [address] [facility] LIPID PANEL (STL) TRIGLYCERIDE [MASS/VOLUME ] IN SERUM OR PLASMA 201 mg/dL 0 - 150 06/29 H Specimen Type: PLASMA Comment: No hemolysis noted. Ordering Provider: RADHA GOLDMAN Report Released Date/Time: Jun 12, 2024 10:48 AM Reporting Lab: [facility] [address] [facility] [address] Performing Lab: [address] [address] [facility] LIPID PANEL (STL) CHOLESTEROL IN LDL [MASS/VOLUME ] IN SERUM OR PLASMA BY CALCULATION 91 mg/dL 06/29 Specimen Type: PLASMA Comment: No hemolysis noted. Ordering Provider: RADHA GOLDMAN Report Released Date/Time: Jun 12, 2024 10:48 AM Reporting Lab: [facility] [address] [facility] [address] Performing Lab: [facility] [address] [facility] [address] [facility] LIPID PANEL (STL) CHOLESTEROL IN HDL [MASS/VOLUME ] IN SERUM OR PLASMA 40 mg/dL 40 06/29 Specimen Type: PLASMA Comment: No hemolysis noted. Ordering Provider: RADHA GOLDMAN Report Released Date/Time: Jun 12, 2024 10:48 AM Reporting Lab: [facility] [address] [facility] [address] Performing Lab: [facility] [address] [facility] [address] [facility] Encounters Combined list of: 1) Encounters from Department of Veterans Affairs facilities going backup to the last 18 months, not all VA inpatient encounters are included; 2) Encounters from the Department of Defense facilities going backup to 280 months. Location Location Details Encounter Type Encounter Number Reason For Visit Attending Provider ADM Date DC Date Status Disposition Source [facility](Op [facility] Clinic ) OUTPATIENT [id number] ROUTINE DUANE DU 03/17 Released w/o Limitations [facility]( Optomet ry Clinic ) [employer]([facility]) OUTPATIENT [id number] ankle injury JESUS SILVA 02/27 Released w/o Limitations [employer]([facility]) [facility]) TELE CONSULT [id number] Notes Entered by: CLEMENTINA CAMPBELL 06 Mar 2014 1238 ------- ------- ------- ------- -- RETRO MIGUELITO BUSH 03/06 [employer]([facility]) [employer](Opt ometry) OUTPATIENT [id number] annual eye exam NADIR SIVA A 03/12 Released w/o Limitations [employer](O ptometr y) [employer]) OUTPATIENT [id number] F/U R ANKLE PAIN JESUS SILVA 04/09 Released w/o Limitations [employer]([facility]) [employer]) OUTPATIENT [id number] flu like symptom s MERY STOVALL A 08/03 Sick at Home/Quarter s [employer]([facility]) [employer]) OUTPATIENT [id number] sinus infecti on NIC AL A 08/06 Released with Work/Duty Limitations [employer] [facility]) [employer]) OUTPATIENT [id number] Notes Entered by: ARIANA OSBORNE 09 Aug 2014 0750 ------- ------- ------- ------- -- W/I RTFS JESUS FORD 08/09 Released w/o Limitations [employer] [facility]) [employer] OUTPATIENT [id number] RX F/U ARPIT IBARRA Jesus 01/28 Released with Work/Duty Limitations [employer] [facility]) [employer]) OUTPATIENT [id number] W/I - RTFS - Rx WILMANMERY ESCOTO Sudhakar 01/30 Released w/o Limitations [employer] [facility]) [employer](Phy sical Therapy) OUTPATIENT [id number] LEANN HART 02/07 Released w/o Limitations [employer](P hysical Therapy ) [employer](Opt ometry) OUTPATIENT [id number] REE/FLY SIVA SCHMITZ 02/15 Released w/o Limitations [employer](O ptometr y) [employer](Phy sical Therapy) OUTPATIENT [id number] EVA VILLALOBOS 02/20 Released w/o Limitations [employer]([facility]ysical Therapy ) [employer](Phy sical Therapy) OUTPATIENT [id number] YANIRA FIGUEREDO 02/27 Released w/o Limitations [employer]([facility]ysical Therapy ) [employer]([facility]ical Therapy) OUTPATIENT [id number] YANIRA FIGUEREDO 03/07 Released w/o Limitations [employer](P [facility]ysical Therapy ) [employer](Phy sical Therapy) OUTPATIENT [id number] YANIRA FIGUEREDO 03/14 Released w/o Limitations [employer](P hysical Therapy ) [employer](Phy sical Therapy) OUTPATIENT [id number] EVA VILLALOBOS 03/19 Released w/o Limitations [employer](P [facility]ysical Therapy ) [employer](Phy sical Therapy) OUTPATIENT [id number] LEANN DE LA CRUZ 03/27 Released w/o Limitations [employer](P [facility]ysical Therapy ) [employer](Phy sical Therapy) OUTPATIENT [id number] LEANN DE LA CRUZ 04/29 Released w/o Limitations [employer](P hysical Therapy ) [employer]) OUTPATIENT [id number] F/U Profile for back pain JESUS SILVA 05/02 Released w/o Limitations [employer] [facility]) [employer]) OUTPATIENT [id number] UTI sx ARPIT IBARRA 07/15 Released w/o Limitations [employer] [facility]) [employer]) OUTPATIENT [id number] W/I-RTD - MERY STOVALL 07/17 Released w/o Limitations [employer]) [employer]) OUTPATIENT [id number] W/I-RTD -[facility] MERY STOVALL 09/02 Released with Work/Duty Limitations [employer]) [employer](Phy sical Therapy) OUTPATIENT [id number] Strain of other muscle( s) and tendon( s) of posteri or muscle group at lower leg LEANN DE LA CRUZ 09/03 Released w/o Limitations [employer](P hysical Therapy ) [employer]) OUTPATIENT [id number] Notes Entered by: DEVANTE COHEN 10 Sep 2015 0759 ------- ------- ------- ------- -- W/I - RTFS - GERONIMO BENITEZ 09/10 Released w/o Limitations [employer] [facility]) [employer](Phy sical Therapy) OUTPATIENT [id number] LEANN DE LA CRUZ 09/16 Released w/o Limitations [employer]([facility]ysical Therapy ) [employer](Phy sical Therapy) OUTPATIENT [id number] LEANN DE LA CRUZ 09/23 Released w/o Limitations [employer]([facility]ysical [facility] ) [employer](Phy sical Therapy) OUTPATIENT [id number] LEANN DE LA CRUZ Enrique 09/30 Released w/o Limitations [employer](P [facility]ysical Therapy ) [employer](Phy sical Therapy) OUTPATIENT [id number] LEANN DE LA CRUZ 10/02 Released w/o Limitations [employer](P [facility]ysical Therapy ) [employer]) OUTPATIENT [id number] Notes Entered by: AJIT REYES 23 Oct 2015 1300 ------- ------- ------- ------- -- W/I-MRI Results GERONIMO HURTADO 10/23 Released w/o Limitations [employer] [facility]) [employer](Phy sical Therapy) OUTPATIENT [id number] LEANN DE LA CRUZ Enrique 10/31 Released w/o Limitations [employer](P hysical Therapy ) [employer]) OUTPATIENT [id number] RTFS DTA MERY STOVALL 11/04 Released w/o Limitations [employer]) [employer](Opt ometry) OUTPATIENT [id number] routine exam SIVA SCHMITZ 01/03 Released w/o Limitations [employer](O ptometr y) [employer]) OUTPATIENT [id number] w/i post TATY seen in ER JAQUELINE RO 02/27 Released w/o Limitations [employer]) [employer]) OUTPATIENT [id number] back painj JAQUELINE RO 03/10 Released w/o Limitations [employer]) [employer]) TELE CONSULT [id number] Notes Entered by: Mian HERNANDEZ 26 Mar 2016 1037 ------- ------- ------- ------- -- Aero Dispo JAQUELINE RO 03/26 [employer]) [employer]) TELE CONSULT [id number] Notes Entered by: Mian HERNANDEZ 06 Apr 2016 0841 ------- ------- ------- ------- -- Contact patient honeyi mirna armijo epidera l MERY Sahni 04/06 [employer]) [employer]) OUTPATIENT [id number] back pain f/u ARIK RICCI ELISABET 04/10 Released with Work/Duty Limitations [employer]) [employer] ([employer])) OUTPATIENT [id number] acupunc GEORGE Medina 04/10 Released with Work/Duty Limitations [employer](N [employer] ([employer])) [employer]) OUTPATIENT [id number] W/I RTD MERY STOVALL A 04/17 Released w/o Limitations [employer]) [employer]) OUTPATIENT [id number] F/U ER visit dizzine ss GENESISGERONIMO CANO Levy 05/18 Sick at Home/Quarter s [employer]) [employer]) OUTPATIENT [id number] F/U dizzine ss JAQUELINE RO 05/22 Released w/o Limitations [employer]) [employer]) OUTPATIENT [id number] w/i-rtd JAQUELINE RO K 05/26 Released w/o Limitations [employer]) [employer]) OUTPATIENT [id number] ear infx sx SHANKAR TOMAO L 06/11 Released w/o Limitations [employer]) [employer]) OUTPATIENT [id number] f/u acupunc ruy CHAPARRO, TOMAO L 08/21 Released with Work/Duty Limitations [employer]) [employer]) OUTPATIENT [id number] lower back pain SHANKAR TOMAO L 09/08 Released with Work/Duty Limitations [employer]) [employer]) TELE CONSULT [id number] Notes Entered by: JAZMIN HEAD 10 Sep 2016 1432 ------- ------- ------- ------- -- Referra l for Dr. Osmin lockett Needs updated , Needs updated MRI CORTEZCHAPARRITA BRENNAN Sudhakar 09/10 Released to [facility] [employer]) [employer]) TELE CONSULT [id number] Notes Entered by: LETY VAZQUEZ 15 Sep 2016 1347 ------- ------- ------- ------- -- MRI Referra enrique. ARTHUR BALTAZAR 09/15 Referred for Appointment [facility]([employer] TELE CONSULT [id number] Notes Entered by: AJIT REYES 08 Oct 2016 1351 ------- ------- ------- ------- -- [id number] pt is needing a referra l to see Dr. Lan for neuro surg WIL CHAPARRO 10/08 [facility]) [facility]) TELE CONSULT [id number] WIL CHAPARRO 10/16 [facility]( [facility]) [facility]([employer]) OUTPATIENT [id number] RTD ARIK RICCI 10/26 Released w/o Limitations [facility]) [facility](Opt ometry) OUTPATIENT [id number] MYLES GARCIA 12/28 Released w/o Limitations [facility](O ptometr y) [facility]([employer]) OUTPATIENT [id number] ear inf sx WIL CHAPARRO 02/24 Released w/o Limitations [facility]) [facility]([employer]) OUTPATIENT [id number] lower back pain ARIK RICCI 04/13 Released w/o Limitations [employer]) [employer]) TELE CONSULT [id number] Notes Entered by: ELMIRA YUNG 14 Apr 2017 1527 ------- ------- ------- ------- -- Med request ARIK RICCI 04/14 [employer]) [facility] Group(Pat riot) TELE CONSULT [id number] Notes Entered by: Mian RICCI 19 Apr 2017 1513 ------- ------- ------- ------- -- Radiolo gy ARIK Milner 04/19 [facility](P atriot) [facility](Non Flyer PRP (BJAC)) TELE CONSULT [id number] Notes Entered by: OWEN BOYER 21 Apr 2017 0813 ------- ------- ------- ------- -- Set up lumbar epidura l injesti on CALLIE MADERA 04/21 [employer](N on Flyer PRP (BJAC)) [facility](Pat riot) OUTPATIENT [id number] lt eye red, mucous SHANKAR, TOMAO L 05/11 Released w/o Limitations [employer](P atriot) [employer](Pat riot) OUTPATIENT [id number] Discuss status ARIK RICCI 05/12 Released w/o Limitations [employer](P atriot) [employer](Pat riot) OUTPATIENT [id number] f/u lower back MERY STOVALL 06/02 Released w/o Limitations [employer](P atriot) [facility] Group Ravi MCNEILL ([facility] ) OUTPATIENT [id number] DISCUSS SLADE FRAGOSO 11/04 Released w/o Limitations [employer] Ravi MCNEILL ([facility])(S [facility] Flight Medicin e Tm) [employer] Ravi MCNEILL ([facility])([facility]) OUTPATIENT [id number] F/U MEDS HARVINDER KENT Enrique 11/18 Released w/o Limitations [address] [place] [address])(S cott Flight Medicin e Tm) [address] [place] [address])(Opt ometry) OUTPATIENT [id number] rt exam/wa iver/df e? CEASARSHIVANI Pamela 11/26 Released w/o Limitations [address] [place] [address])(O ptometr y) [address] [place] [address])([facility]) TELE CONSULT [id number] Notes Entered by: NANCY GENTILE 06 Dec 2017 0817 ------- ------- ------- ------- -- Network Results - Pain MGMT 7 SLADE LYLES 12/[address] [place] [address])(S [employer] [facility]) [address] [place] [address])([facility]) OUTPATIENT [id number] waiver for lower back pain renewal MYCHAL HERNANDEZ 12/06 Released w/o Limitations [address] [place] [address])(S [employer] [facility] Tm) [address] [place] [address])([facility] ) OUTPATIENT [id number] fever, no energy, nausea/ MYCHAL HERNANDEZ 12/20 Released w/o Limitations [address] [place] [address])(S [employer] [facility]in e Tm) [address] [place] [address])(Phy sical Therapy) OUTPATIENT [id number] Notes Entered by: KATERINA BARAJAS CK 23 Dec 2017 1128 ------- ------- ------- ------- -- LBP TANGELA WARD 12/23 Released w/o Limitations [address] [place] [address] Ravi B ([facility])(P hysical Therapy ) [address] [place] [address])([facility] ) TELE CONSULT [id number] Notes Entered by: MYCHAL HERNANDEZ 24 Dec 2017 1155 ------- ------- ------- ------- -- F/u MRI MYCHAL HERNANDEZ 12/[address] [place] [address] Group Ravi B [facility]S cott Flight Medicin e Tm) [address] [place], [place] [address]B ([facility])(Phy sical Therapy) OUTPATIENT [id number] M54.5 Low back pain [facility] Pilar 12/31 Released w/o Limitations [address] [place] [address] Group Ravi B [facility]P hysical Therapy ) [address] [place], [place] [address]B ([facility])(Phy sical Therapy) OUTPATIENT [id number] LBP NIYAH BARAHONA 01/05 Released w/o Limitations [address] [place], [place] [address]B ([facility])(P hysical Therapy ) [address] [place], [place] [address]B [facility]Sco tt Flight Medicine Tm) OUTPATIENT [id number] Nasal Congest ion, green mucus, facial pressur e [id number] SLADE LYLES 01/11 Released w/o Limitations [address] [place], [place] [address]B [facility]S cott Flight Medicin e Tm) [address] [place], [place] [address]B [facility]Sco tt Flight Medicine Tm) TELE CONSULT [id number] Notes Entered by: ATILIO HILL 19 Jan 2018 0808 ------- ------- ------- ------- -- F/U Appt Regardi Low Back Issues / Tamie / - sgj CARMELITA SCOTT 01/[address] [place] [address] [employer] [facility]S cott Flight Medicin e Tm) [address] [place], [place] [address]B [facility]Phy sical Therapy) OUTPATIENT [id number] f/u lbp TANGELA WARD 01/19 Released w/o Limitations [address] [place], [place] [address]B ([facility])(P hysical Therapy ) [address] [place], [place] [address]B [facility]Sco tt Flight Medicine Tm) OUTPATIENT [id number] Low back issues MYCHAL HERNANDEZ 01/19 Released w/o Limitations [address] [place] [address] [facility])(S cott Flight Medicin e Tm) [facility] Medical [facility])(Phy sical Therapy) OUTPATIENT [id number] LBP NITHIN GONZALES 01/27 Released w/o Limitations [address] [place] [address])(P hysical Therapy ) [address] [place] [address])([employer] [facility] Flight Medicine Tm) TELE CONSULT [id number] Notes Entered by: Sudhakar SCHNEIDER 28 Jan 2018 0805 ------- ------- ------- ------- -- 1429 - Jan Appt Inquiry / Tamie/ - CARMELITA Taylor 01/[address] [place] [address])(S cott Flight Medicin e Tm) [address] [place] [address])(Phy sical Therapy) OUTPATIENT [id number] [facility] NIYAH BARAHONA 02/03 Released w/o Limitations [address] [place] [address])(P hysical Therapy ) [address] [place] [address])(Bas e Operation al Medicine Clin) TELE CONSULT [id number] Notes Entered by: CLEOPATRA FAGAN 03 Feb 2018 1446 ------- ------- ------- ------- -- Med request /Dr. Lyles/ [facility] SLADE LYLES 02/[address] [place] [address])(B ase Operati onal Medicin e Clin) [address] [place] [address])(Phy sical Therapy) OUTPATIENT [id number] LBP NIYAH BARAHONA 02/10 Released w/o Limitations [address] [place] [address])(P hysical Therapy ) [address] [place] [address])(Phy sical Therapy) OUTPATIENT [id number] f/u LBP TANGELA WARD 02/17 Released w/o Limitations [address] [place] [address])(P hysical Therapy ) [address] [place] [address])([facility] tt Flight Medicine ) TELE CONSULT [id number] Notes Entered by: NILO JAVED 18 Feb 2018 1447 ------- ------- ------- ------- -- Waiver/ Tamie/ /c DIANA Sutton 02/[address] [place] [address])([facility] Flight Medicin e ) [address] [place] [address])([facility] ) TELE CONSULT [id number] Notes Entered by: KAY VEGA 04 Mar 2018 1459 ------- ------- ------- ------- -- Flight Bradley nunez Appt Request / Tamie/ - EMLY Figueroa 03/04 Other Not Elsewhere Classified [address] [place] [address])( [employer] [facility]in e ) [address] [place] [address])(Aud iology Procedure s) OUTPATIENT [id number] [facility] Annual EBSCOTTIE MOODY 03/18 Released w/o Limitations [address] [place] [address])(A udiolog y Procedu res) [address] [place] [address])([facility] ) TELE CONSULT [id number] Notes Entered by: ALVIN TRUONG 05 Apr 2018 1322 ------- ------- ------- ------- -- Resched kev [facility] for FLT JUSTIN - Jaziel - [id number] 90vbcMELY Barrera 04/05 Referred for Appointment [address] [place] [address])(S [employer] Flight [facility]in e Tm) [address] [place] [address])(Bas e Operation al Medicine Clin) OUTPATIENT [id number] 48 y/o M Glasses -Y/Waiv remingtonY SLADE LYLES 04/20 Released w/o Limitations [address] [place] [address])(B ase Operati onal Medicin e Clin) [address] [place] [address])([facility] Flight Medicine Tm) TELE CONSULT [id number] Notes Entered by: TARIQ BRENNAN 22 Jul 2018 1337 ------- ------- ------- ------- -- Appt nehemiah - Tamie - - [facility] GEORGE NGUYỄN 07/22 Referred for Appointment [address] [place] [address])(S cott Flight Medicin e Tm) [address] [place] [address])([facility] Flight Medicine Tm) OUTPATIENT [id number] COLD SYMPTOM S GOLDALON OVALLEDARIEL Nunez 07/26 Released w/o Limitations [address] [place] [address])(S cott Flight Medicin e Tm) [address] [place] [address])([facility] Flight Medicine Tm) OUTPATIENT [id number] nasal congest ion, MAXIM ZELAYA 08/08 Released w/o Limitations [address] [place] [address])(S cott Flight Medicin e Tm) [address] [place] [address])(Opt ometry) OUTPATIENT [id number] annual exam SHIVANI MCDONOUGH 08/17 Released w/o Limitations [address] [place] [address])(O ptometr y) [address] [place] [address])([facility] Flight Medicine ) OUTPATIENT [id number] cold symptom s pt profile MAXIM ZELAYA 09/20 Released w/o Limitations [address] [place] [address])(S cott Flight Medicin e Tm) [address] [place] [address])([facility] Flight Medicine Tm) TELE CONSULT [id number] Notes Entered by: JAYESH CARRASQUILLO 26 Dec 2018 0854 ------- ------- ------- ------- -- Med Renewal /Tamie / VINCENT RODRIGUEZ 12/26 Referred for Appointment [address] [place] [address] [facility])(S cott Flight Medicin e Tm) [facility] Medical [facility])([facility]m) OUTPATIENT [id number] Notes Entered by: JOSE TELLO 03 Jan 2019 1027 ------- ------- ------- ------- -- Rx refill flyer ARB/thi azide combo.. aunual appt SHELBIE VAZQUEZ 01/03 Released w/o Limitations [facility] Medical Group [facility])(S cott Flight Medicin e Tm) [address] [place] [address])([facility] Tm) TELE CONSULT [id number] Notes Entered by: ATILIO HILL 11 Jan 2019 0741 ------- ------- ------- ------- -- Baldomero [facility] / Tamie / - sgj MELY HERRERA 01/11 Referred for Appointment [facility] Medical Group [facility])(S cott Flight Medicin e Tm) [address] [place] [address])([facility] Flight Medicine Tm) TELE CONSULT [id number] Notes Entered by: Niurka QUINTERO 11 Jan 2019 0931 ------- ------- ------- ------- -- Provide r request ed T-Con-N etwork Results Pulmona ry 01/02/19 JANIE POE 01/11 [facility] Medical Group [facility])(S cott Flight Medicin e Tm) [facility] Medical [facility])([facility] [place] [facility] Tm) OUTPATIENT [id number] back issues SHELBIE VAZQUEZ 01/12 Released w/o Limitations [facility] Medical Group [facility])(S cott Flight Medicin e Tm) [address] [place] [address])([facility] [place] [facility] Tm) TELE CONSULT [id number] 3 Notes Entered by: SHELBIE VAZQUEZ 09 Feb 2019 1039 ------- ------- ------- ------- -- Labs SHELBIE VAZQUEZ 02/09 [facility] Medical Group Ravi [facility])(S cott Flight Medicin e Tm) [facility] Medical Group [facility])([facility] Tm) TELE CONSULT [id number] Notes Entered by: ALVIN TRUONG 13 Mar 2019 0801 ------- ------- ------- ------- -- E.R f/u - [place] - [phone] ch POLLO HOPPER 03/13 Referred for Appointment [facility] Medical Group [facility]avi B [facility]S cott Flight Medicin e Tm) [facility] Medical Group Ravi [facility])([facility] Tm) OUTPATIENT [id number] ringwor SHELBIE Mishra 03/13 Released w/o Limitations [facility] Medical Group [facility])(S cott Flight Medicin e Tm) [facility] Medical Group [facility])([facility] Flight Medicine Tm) TELE CONSULT [id number] 3 Notes Entered by: SHELBIE VAZQUEZ 14 Mar 2019 1225 ------- ------- ------- ------- -- Result POLLO HOPPER 03/14 Referred for Appointment [facility] Medical Group Ravi [facility])(S cott Flight Medicin e Tm) [facility] Medical Group [facility])([facility] Flight Medicine Tm) TELE CONSULT [id number] Notes Entered by: SHELBIE VAZQUEZ 20 Mar 2019 1522 ------- ------- ------- ------- -- Result SHELBIE VAZQUEZ 03/20 [facility] Medical Group [facility])(S cott Flight Medicin e Tm) [address] [place] [address] Group [facility])([facility] ) OUTPATIENT [id number] f/u w/K+, Liver functio n test and medicat ions MAXIM ZELAYA 03/22 Released w/o Limitations [facility] Medical Group [employer] [facility]S cott Flight Medicin e ) [address] [place] [address])([facility] Flight Medicine ) TELE CONSULT [id number] Notes Entered by: LENIN ALFARO 13 Apr 2019 0929 ------- ------- ------- ------- -- Network results Pulmona ry 019 MAXIM SAINI 04/[address] [place] [address])([facility] [employer] Medicin e ) [address] [place] [address])([facility] Flight Medicine ) TELE CONSULT [id number] Notes Entered by: AWA ART 17 Apr 2019 1600 ------- ------- ------- ------- -- Sx-rash on right leg/jani ventura/78 [phone] eld SHELBIE VAZQUEZ 04/[address] [place] [address])([facility] [employer] ) [address] [place] [address])([facility] Flight Medicine ) TELE CONSULT [id number] Notes Entered by: NILO JAVED 18 Apr 2019 1115 ------- ------- ------- ------- -- STAT Referra l Change Req/27 Apr 2019/Ar barrientosers/7 [phone]/[id number] VINCENT Jansen 04/18 Referred for Appointment [address] [place] [address])([facility] [employer] Medic[facility] e ) [address] [place] [address])([facility] Flight Medicine ) OUTPATIENT [id number] Re-eval of worseni ng rash with occasio nal bleedin g when scratch ed. SHELBIE VAZQUEZ 04/19 Released w/o Limitations [address] [place] [address])(S [facility] Flight Medicin e ) [address] [place] [address])([facility] Flight Medicine ) TELE CONSULT [id number] Notes Entered by: KAY VEGA 27 Apr 2019 0834 ------- ------- ------- ------- -- STAT Dermato logy Referra l Amendaz nt Req -999/Ar moura/7 [phone] -urbano JULIETTE RODRIGUEZMARGAUX De La Fuente 04/27 Referred for Appointment [employer] [facility])(S cott Flight Medicin e Tm) [facility] Medical Group [facility])([facility] Flight Medicine Tm) TELE CONSULT [id number] Notes Entered by: TARIQ BRENNAN 09 May 2019 0733 ------- ------- ------- ------- -- Flight justin/Heydi Zelaya - - JENNY Bejarano 05/09 Referred for Appointment [employer] [facility])(S cott Flight Medicin e Tm) [address] [place] [address])([facility] Flight Medicine ) TELE CONSULT [id number] Notes Entered by: AWA ART 12 May 2019 1108 ------- ------- ------- ------- -- Santy blankenship /cande candelaria/ issac JULIETTE RODRIGUEZMARGAUX De La [place]ente 05/12 Referred for Appointment [employer] [facility])(S cott Flight Medicin e Tm) [address] [place] [address])(Aud iology Procedure s) OUTPATIENT [id number] Notes Entered by: ABIMAEL BYRNE 05 Jun 2019 1004 ------- ------- ------- ------- -- Annual Hearing test AISHA FAY 06/05 Released w/o Limitations [facility] Medical Group [facility])(A udiolog y Procedu res) [facility] Medical Group [facility])([facility] Flight Medicine Tm) TELE CONSULT [id number] Notes Entered by: MERON HERRERA 21 Jun 2019 0828 ------- ------- ------- ------- -- Network results Dermato logy 019 SHONR GEORGESHELBIE 06/[address] [place] [address] [facility]S cott Flight Medicin e Tm) [address] [place] [address])(Bas e Operation al Medicine Clin) OUTPATIENT [id number] PHA//gl asses// Waiver Dated: 018 III Expires : 021 SIVA ORTEGA 06/21 Released w/o Limitations [address] [place] [address] Ravi [facility])(B ase Operati onal Medicin e Clin) [address] [place] [address])([facility] Flight Medicine ) OUTPATIENT [id number] Notes Entered by: JOSE TELLO 07 Jul 2019 1338 ------- ------- ------- ------- -- vision screeni RAVI Sunshine 07/07 Released w/o Limitations [address] [place] [address])(S cott Flight Medicin e Tm) [address] [place] [address])([facility] Internal Medicine Tm) TELE CONSULT [id number] Notes Entered by: ADAM ESCOBAR 02 Aug 2019 1135 ------- ------- ------- ------- -- Network Results PULM 07/18/19 SDROSIE ROOZCO 08/[address] [place] [address])(S cott Interna l Medicin e Tm) [address] [place] [address])(Opt ometry) OUTPATIENT [id number] annual eye exam/gl asses / SHIVANI MCDONOUGH 08/18 Released w/o Limitations [address] [place] [address] Ravi [facility])(O ptometr y) [address] [place] [address])([facility] Flight Medicine Tm) OUTPATIENT [id number] f/u ER visit ANATOLY AHN 08/31 Released w/o Limitations [address] [place] [address])(S [employer] [facility]in e Tm) [address] [place] [address])([facility] Flight Medicine ) TELE CONSULT [id number] Notes Entered by: FILIPPO IZAGUIRRE,ANIT A 18 Sep 2019 1525 ------- ------- ------- ------- -- SX - Congest ion, Cough, Wheezin pamela/ Juan lockett/ - urbano VINCENT RODRIGUEZ A 09/18 Referred- Emergency Department [address] [place] [address])(S [employer] [facility]in e Tm) [address] [place] [address])([facility] Flight Medicine ) OUTPATIENT [id number] chronic lower back pain [id number] JANIE POE 11/09 Released w/o Limitations [address] [place] [address])(S [employer] Flight Medicin e Tm) [address] [place] [address])([facility] Flight Medicine ) TELE CONSULT [id number] Notes Entered by: LENIN ALFARO 20 Nov 2019 0800 ------- ------- ------- ------- -- Network results Nurye yuliana gy 019 HARVINDER OSUNA 11/[address] [place] [address])(S [employer] Flight Medicin e Tm) [address] [place] [address])([facility] Flight Medicine ) TELE CONSULT [id number] Notes Entered by: CANDELARIA VEGAIT A 25 Dec 2019 1007 ------- ------- ------- ------- -- F/U Appt - ER F/U/ Juan lockett/ - JANIE Rascon 12/[address] [place] [address])(S cott Flight Medicin e Tm) [address] [place] [address])(Phy sical Therapy) OUTPATIENT [id number] Low back pain TANGELA WARD ALBA 12/25 Released w/o Limitations [employer] ([facility]P hysical Therapy ) [facility] Medical Group [employer] ([facility])(Phy sical Therapy) OUTPATIENT [id number] 7 back/hi p NIYAH BARAHONA 12/27 Released w/o Limitations [employer] ([facility])(P hysical Therapy ) [address] [place] [address] Group [employer] ([facility])(Phy sical Therapy) OUTPATIENT [id number] 4 back/hi p JENNY VALENCIA 12/29 Released w/o Limitations [employer] ([facility]P hysical Therapy ) [address] [place] [address] Group [employer] ([facility])(Phy sical Therapy) OUTPATIENT [id number] 4 back/hi p YAJAIRA, CHINA E 01/02 Released w/o Limitations [employer] ([facility])(P hysical Therapy ) [facility] Medical Group [employer] ([facility])(Phy sical Therapy) OUTPATIENT [id number] 7 back/hi p MIREYA BASS 01/10 Released w/o Limitations [address] [place] [address] Group [employer] ([facility]P hysical Therapy ) [address] [place] [address] [employer] ([facility])([facility] tt Flight Medicine Tm) OUTPATIENT [id number] f/u ER visit JANIE POE 01/16 Released w/o Limitations [facility] Medical Group [employer] ([facility])(S cott Flight Medicin e Tm) [facility] Medical Group [employer] ([facility])(Phy sical Therapy) OUTPATIENT [id number] 9 back/hi p MARK WARDRohit ALBA 01/19 Released w/o Limitations [facility] Medical Group [employer] ([facility])(P hysical Therapy ) [facility] Medical Group [employer] ([facility])(Azo tt Flight Medicine Tm) OUTPATIENT [id number] HARVINDER QUINONES 01/31 Released w/o Limitations Medical [employer] ([facility])(S cott Flight Medicin e Tm) [facility] Medical Group [employer] ([facility])(Azo tt Flight Medicine Tm) TELE CONSULT [id number] 5 Notes Entered by: TEOFILO WOODRAD 2020 1148 ------- ------- ------- ------- -- KALEY/Yesi paiz /HARVINDER Nagy 02/[address] [place] [address])(S [employer] Medic[facility] Tm) [address] [place] [address])([facility] Flight Medicine ) TELE CONSULT [id number] Notes Entered by: TERRENCE PAREDES 05 Feb 2020 1044 ------- ------- ------- ------- -- LAB RESULTS VINCENT RODRIGUEZ 02/04 Advice Assessment [address] [place] [address])(S [employer] Medicin e Tm) [address] [place] [address])([facility] Flight Medicine ) TELE CONSULT [id number] 2 Notes Entered by: LENIN ALFARO 06 Feb 2020 1253 ------- ------- ------- ------- -- Network results Anes/ Pain Managem ent 020 JANIE CHONG 02/[address] [place] [address])(S [employer] Flight Medicin e Tm) [address] [place] [address])(Aud iology Procedure s) OUTPATIENT [id number] [facility] AF Active Flyer SHELIA ENRIQUEZ 02/14 Released w/o Limitations 09 [place] [address])(A udiolog y Procedu res) [address] [place] [address])(Jass matology) TELE CONSULT [id number] Notes Entered by: Sudhakar AYERS 28 Feb 2020 1350 ------- ------- ------- ------- -- Appoint RAMO Gayle 02/[address] [place] [address])(D ermatol ogy) [address] [place] [address])(Jass matology) OUTPATIENT [id number] Notes Entered by: ANGLE SMITH 01 Mar 2020 0951 ------- ------- ------- ------- -- TELEVIS IT RAMO SMITH 03/01 Released w/o Limitations [facility] Ravi MCNEILL ([facility] [place]Darshan wisetati) [facility] Outpatient Encounter [id number] 06/12 [facility] Outpatient Encounter [id number] Diagnos is: ICD-10- CM Z00.01 Encount er for general adult medical exam w INOCENCIA Khoury 06/12 [facility] Outpatient Encounter [id number] 06/12 [facility] CASE MANAGEMENT [id number] Diagnos is: ICD-10- CM I10 Essenti al (primar y) hyperte nsion MAYDEN,CHR ISTINE M 06/[address] [facility] HC PRO PHONE CALL 21-30 MIN [id number] Diagnos is: ICD-10- CM I10 Essenti al (primar y) hyperte nsion MAYDEN,CHR ISTINE M 07/05 [facility] Outpatient Encounter [id number] 07/05 [facility] Outpatient Encounter [id number] 08/07 [facility] Outpatient Encounter [id number] 09/05 [facility] Outpatient Encounter [id number] ANTONIO MOYA M 12/05 [facility] OFF[facility] O/P EST MOD 30 MIN [id number] Diagnos is: ICD-10- CM I10 Essenti al (primar y) hyperte jaya GASTELUMGEOVANNI NANCY Jake 12/06 [facility] Outpatient Encounter [id number] 12/07 [facility] N Procedures Combined list of: 1) Procedures from Department of Veterans Affairs facilities going back up to thelast 18 months, not all [place] non-surgical procedures are included; 2) All procedures from the Department of Defense facilities. Procedure Procedure Type Code Date Perfomer Comments Sourc e No data available for this section Ambulato ry Pharmacy DETERMINATION OF REFRACTIVE STATE 2003 [facility] OPHTHALMOLOGICAL SERVICES: MEDICAL EXAMINATION AND EVALUATION, WITH INITIATION OR CONTINUATION OF DIAGNOSTIC AND TREATMENT PROGRAM; INTERMEDIATE, ESTABLISHED PATIENT 2000 [facility] DETERMINATION OF REFRACTIVE STATE 2000 DoD FITTING OF SPECTACLES, EXCEPT FOR APHAKIA; MONOFOCAL 2005 DoD BRIEF COMM TECH-BASE SERV,E.G. VIRT CHK-IN,BY [...] RANGE OF MOTION AND FLEXIBILITY 2017 DoD FITTING OF SPECTACLES, EXCEPT FOR APHAKIA; MONOFOCAL 2016 DoD FITTING OF SPECTACLES, EXCEPT FOR APHAKIA; MONOFOCAL 2016 DoD TELE ASSESS & MGT SRV PROV QUAL NONPHYS HLTH CARE PRO TO EST PAT,PARENT,GUARD NOT ORIG REL ASSESS & MGT SRV PROV W/IN PREV 7 DAYS NOR LEAD ASSESS & MGT SRV/PX W/IN NXT 24 HR/SOON APT;5-10 MIN MED DIS 2015 [facility] BRIEF EMOTIONAL/BEHAVIOR AL ASSESSMENT (EG, DEPRESSION INVENTORY, ATTENTION-DEFICIT/ HYPERACTIVITY DISORDER [ADHD] SCALE), WITH SCORING AND DOCUMENTATION, PER STANDARDIZED INSTRUMENT 2015 DoD BRIEF EMOTIONAL/BEHAVIOR AL ASSESSMENT (EG, DEPRESSION INVENTORY, ATTENTION-DEFICIT/ HYPERACTIVITY DISORDER [ADHD] SCALE), WITH SCORING AND DOCUMENTATION, PER STANDARDIZED INSTRUMENT 2015 [facility] ACUPUNCTURE, 1 OR MORE NEEDLES; WITHOUT ELECTRICAL STIMULATION, INITIAL 15 MINUTES OF PERSONAL ONE-ON-ONE CONTACT WITH THE PATIENT 2015 DoD FITTING OF SPECTACLES, EXCEPT FOR APHAKIA; MONOFOCAL 2015 DoD PHYSICAL THERAPY RE-EVALUATION 2014 [facility] THERAPEUTIC PROCEDURE, 1 OR MORE AREAS, EACH 15 MINUTES; THERAPEUTIC EXERCISES TO DEVELOP STRENGTH AND ENDURANCE, RANGE OF MOTION AND FLEXIBILITY 2014 DoD THERAPEUTIC PROCEDURE, 1 OR MORE AREAS, EACH 15 MINUTES; THERAPEUTIC EXERCISES TO DEVELOP STRENGTH AND ENDURANCE, RANGE OF MOTION AND FLEXIBILITY 2014 DoD APPLICATION OF A MODALITY TO 1 OR MORE AREAS; ELECTRICAL STIMULATION (MANUAL), EACH 15 MINUTES 2014 DoD APPLICATION OF A MODALITY TO 1 OR MORE AREAS; ELECTRICAL STIMULATION (MANUAL), EACH 15 MINUTES 2014 DoD STRAPPING; ANKLE AND/OR FOOT 2014 [facility] PHYSICAL THERAPY RE-EVALUATION 2014 DoD THERAPEUTIC PROCEDURE, [...] FOR SITTING AND/OR STANDING ACTIVITIES 2014 DoD APPLICATION OF A MODALITY TO 1 OR MORE AREAS; HOT OR COLD PACKS 2014 DoD THERAPEUTIC PROCEDURE,1 OR MORE AREAS,EACH 15 MINUTES;NEUROMUSCU LAR REEDUCATION OF MOVEMENT,BALANCE,C OORDINATION,KINEST HETIC SENSE,POSTURE,AND/ OR PROPRIOCEPTION FOR SITTING AND/OR STANDING ACTIVITIES 2014 DoD THERAPEUTIC PROCEDURE,1 OR MORE AREAS,EACH 15 MINUTES;NEUROMUSCU LAR REEDUCATION OF MOVEMENT,BALANCE,C OORDINATION,KINEST HETIC SENSE,POSTURE,AND/ OR PROPRIOCEPTION FOR SITTING AND/OR STANDING ACTIVITIES 2014 DoD FITTING OF SPECTACLES, EXCEPT FOR APHAKIA; MONOFOCAL 2014 DoD THERAPEUTIC PROCEDURE, 1 OR MORE AREAS, EACH 15 MINUTES; THERAPEUTIC EXERCISES TO DEVELOP STRENGTH AND ENDURANCE, RANGE OF MOTION AND FLEXIBILITY 2014 [facility] ELECTROCARDIOGRAM, ROUTINE ECG WITH AT LEAST 12 LEADS; WITH INTERPRETATION AND REPORT 2014 DoD FITTING OF SPECTACLES, EXCEPT FOR APHAKIA; MONOFOCAL 2013 [facility] Physical Therapy Neuromuscular Re-education Physical Therapy Neuromuscular Re-education 36855 2014 YANIRA FIGUEREDO Physical Therapy: ___ Se ion Segments, 15 Minutes Each Physical Therapy: ___ Session Segments, 15 Minutes Each 54121 2014 YANIRA FIGUEREDO Physical Therapy Neuromuscular Re-education Physical Therapy Neuromuscular Re-education 38587 2014 EVA VILLALOBOS Physical Therapy: ___ Se ion Segments, 15 Minutes Each Physical Therapy: ___ Session Segments, 15 Minutes Each 53352 2014 EVA VILLALOBOS [facility] Fitting Monofocals (Not For Aphakia) [facility] Fitting Monofocals (Not For Aphakia) 75590 2014 SIVA SCHMITZ Determination Of Refractive State Determination Of Refractive State 94240 2014 SIVA SCHMITZ Ophthalmological Prior Patient Start Comprehensive Care Ophthalmological Prior Patient Start Comprehensive Care 85326 2014 SIVA SCHMITZ Physical Therapy: ___ Se ion Segments, 15 Minutes Each Physical Therapy: ___ Session Segments, 15 Minutes Each 27263 2014 LEANN DE LA CRUZ Physical Medicine Physical Therapy Evaluation Physical Medicine Physical Therapy Evaluation 42376 2014 LEANN DE LA CRUZ ECG 12-Lead With Interpretation And Report ECG 12-Lead With Interpretation And Report 64701 [address]. No [address] segment changes. No T wave abnormalities [facility] Determination Of Refractive State Determination Of Refractive State 14416 2013 SIVA SCHMITZ [employer] [facility] Fitting Monofocals (Not For Aphakia) [facility] Fitting Monofocals (Not For Aphakia) 03122 2013 SIVA SCHMITZ Ophthalmological New Patient Start Comprehensive Care Ophthalmological New Patient Start Comprehensive Care 54117 2013 SIVA SCHMITZ [employer] [facility] Fitting Monofocals (Not For Aphakia) [facility] Fitting Monofocals (Not For Aphakia) 94491 2005 DUANE DU Ophthalmological New Patient Start Intermediate Level Care Ophthalmological New Patient Start Intermediate Level Care 01194 2005 DUANE DU Threshold Audiogram (Pure Tone) Threshold Audiogram (Pure Tone) 30689 2018 SIVA ORTEGA Visual Maldonado Test Limited Examination Visual Maldonado Test Limited Examination 69498 2018 SIVA ORTEGA Screening Test Of Visual Acuity, Quantitative, Bilateral Screening Test Of Visual Acuity, Quantitative, Bilateral 25475 2018 SIVA ORTEGA Threshold Audiogram (Pure Tone) Automated Threshold Audiogram (Pure Tone) Automated 0208T 2018 AISHA FAY [employer] [facility] Fitting Monofocals (Not For Aphakia) [facility] [facility] Fitting Monofocals (Not For Aphakia) 18651 2017 SHIVANI MCDONOUGH Determination Of Refractive State Determination Of Refractive State 66183 2017 SHIVANI MCDONOUGH Ophthalmological Prior Patient Start Comprehensive Care Ophthalmological Prior Patient Start Comprehensive Care 78973 2017 SHIVANI MCDONOUGH Threshold Audiogram (Pure Tone) Threshold Audiogram (Pure Tone) 11334 2017 SLADE LYLES Non-Physician Phone Call To Patient/Provider Brief (5-10min) Non-Physician Phone Call To Patient/Provider Brief (5-10min) 25141 2017 MELY HERRERA Threshold Audiogram (Pure Tone) Automated Threshold Audiogram (Pure Tone) Automated 0208T 2017 SCOTTIE BETTS Non-Physician Phone Call To Patient/Provider Brief (5-10min) Non-Physician Phone Call To Patient/Provider Brief (5-10min) 77817 2017 DIANA TAYLOR Non-Physician Phone Call To Patient/Provider Brief (5-10min) Non-Physician Phone Call To Patient/Provider Brief (5-10min) 79097 2017 DIANA TAYLOR Physical Therapy: ___ Se ion Segments, 15 Minutes Each Physical Therapy: ___ Session Segments, 15 Minutes Each 05392 2017 TANGELA WARD Physical Medicine Physical Therapy Re-Evaluation Physical Medicine Physical Therapy Re-Evaluation 46097 2017 TANGELA WARD Exercises A isted Exercises For ROM Exercises Assisted Exercises For ROM 03420 2017 NIYAH BARAHONA [facility] Physical Therapy Neuromuscular Re-education Physical Therapy Neuromuscular Re-education 22515 2017 NIYAH BARAHONA Physical Therapy Neuromuscular Re-education Physical Therapy Neuromuscular Re-education 14771 2017 NIYAH BARAHONA Exercises A isted Exercises For ROM Exercises Assisted Exercises For ROM 64290 2017 JUN NIYAH Barber Exercises A isted Exercises For ROM Exercises Assisted Exercises [place] ROM 99505 2017 NITHIN GONZALES Physical Therapy Neuromuscular Re-education Physical Therapy Neuromuscular Re-education 24110 2017 NITHIN GONZALES Physical Therapy: ___ Se ion Segments, 15 Minutes Each Physical Therapy: ___ Session Segments, 15 Minutes Each 08855 2017 TANGELA WARD Physical Medicine Physical Therapy Re-Evaluation Physical Medicine Physical Therapy Re-Evaluation 45992 2017 TANGELA WARD Physical Therapy Neuromuscular Re-education Physical Therapy Neuromuscular Re-education 75177 2017 NIYAH BARAHONA Physical Therapy: ___ Se ion Segments, 15 Minutes Each Physical Therapy: ___ Session Segments, 15 Minutes Each 22877 2017 NIYAH BARAHONA Physical Therapy Neuromuscular Re-education Physical Therapy Neuromuscular Re-education 09390 2017 YAJAIRA, [facility] Physical Therapy: ___ Se ion Segments, 15 Minutes Each Physical Therapy: ___ Session Segments, 15 Minutes Each 34151 2017 [employer] [facility] Physical Therapy: ___ Se ion Segments, 15 Minutes Each Physical Therapy: ___ Session Segments, 15 Minutes Each 82581 2017 TANGELA WARD [facility] [employer] [facility] Fitting Bifocals (Not For Aphakia) [facility] Fitting Bifocals (Not For Aphakia) 70296 2016 SHIVANI MCDONOUGH [facility] [facility] Fitting Monofocals (Not For Aphakia) [facility] [facility] Fitting Monofocals (Not For Aphakia) 26907 2016 SHIVANI MCDONOUGH Determination Of Refractive State Determination Of Refractive State 22275 2016 SHIVANI MCDONOUGH Ophthalmological New Patient Start Comprehensive Care Ophthalmological New Patient Start Comprehensive Care 16885 2016 SHIVANI MCDONOUGH Determination Of Refractive State Determination Of Refractive State 88185 2016 MYLES ROMAN [facility] Fitting Monofocals (Not For Aphakia) [facility] Fitting Monofocals (Not For Aphakia) 26536 2016 MYLES ROMAN Ophthalmological Prior Patient Start Comprehensive Care Ophthalmological Prior Patient Start Comprehensive Care 21534 2016 MYLES ROMAN Non-Physician Phone Call To Patient/Provider Brief (5-10min) Non-Physician Phone Call To Patient/Provider Brief (5-10min) 58055 2015 ARTHUR BALTAZAR Acupunct One Or More [place] W/O Stimulation Initial 15 Min Acupunct One Or More [place] W/O Stimulation Initial 15 Min 53235 2015 GEORGE CABALLERO [facility] Fitting Monofocals (Not For Aphakia) [facility] Fitting Monofocals (Not For Aphakia) 93646 2015 SIVA SCHMITZ Determination Of Refractive State Determination Of Refractive State 73719 2015 SIVA SCHMITZ Ophthalmological Prior Patient Start Comprehensive Care Ophthalmological Prior Patient Start Comprehensive Care 13350 2015 SIVA SCHMITZ Physical Medicine Physical Therapy Re-Evaluation Physical Medicine Physical Therapy Re-Evaluation 34395 2014 LEANN DE LA CRUZ Exercises A isted Exercises For ROM Exercises Assisted Exercises For ROM 06490 2014 LEANN DE LA CRUZ Modalities Electrical Stimulation Attended Each 15 Minutes Modalities Electrical Stimulation Attended Each 15 Minutes 53256 2014 LEANN DE LA CRUZ Physical or manipulative therapy performed for maintenance rather than advent 2014 LEANN DE LA CRUZ Osteopathic Manip Treatment (OMT) 1-2 Body Regions Involved Osteopathic Manip Treatment (OMT) 1-2 Body Regions Involved 71208 2014 LEANN DE LA CRUZ Physical Medicine Physical Therapy Re-Evaluation Physical Medicine Physical Therapy Re-Evaluation 90522 2014 LEANN DE LA CRUZ Exercises A isted Exercises For ROM Exercises Assisted Exercises For ROM 83202 2014 LEANN DE LA CRUZ Osteopathic Manip Treatment (OMT) 1-2 Body Regions Involved Osteopathic Manip Treatment (OMT) 1-2 Body Regions Involved 27311 2014 LEANN DE LA CRUZ Physical Medicine Physical Therapy Re-Evaluation Physical Medicine Physical Therapy Re-Evaluation 28107 2014 LEANN DE LA CRUZ Modalities Electrical Stimulation Attended Each 15 Minutes Modalities Electrical Stimulation Attended Each 15 Minutes 68847 2014 LEANN DE LA CRUZ Physical or manipulative therapy performed for maintenance rather than advent 2014 LEANN DE LA CRUZ Exercises A isted Exercises For ROM Exercises Assisted Exercises For ROM 03966 2014 LEANN DE LA CRUZ Physical Medicine Physical Therapy Re-Evaluation Physical Medicine Physical Therapy Re-Evaluation 62205 2014 LEANN DE LA CRUZ Modalities Electrical Stimulation Attended Each 15 Minutes Modalities Electrical Stimulation Attended Each 15 Minutes 96439 2014 LEANN DE LA CRUZ Taping Ankle Taping Ankle 92229 2014 LEANN DE LA CRUZ Physical or manipulative therapy performed for maintenance rather than advent 2014 LEANN DE LA CRUZ Physical Medicine Physical Therapy Re-Evaluation Physical Medicine Physical Therapy Re-Evaluation 02241 2014 LEANN DE LA CRUZ Taping Ankle Taping Ankle 10314 2014 LEANN DE LA CRUZ Modalities Electrical Stimulation Attended Each 15 Minutes Modalities Electrical Stimulation Attended Each 15 Minutes 72317 2014 LEANN DE LA CRUZ Exercises A isted Exercises For ROM Exercises Assisted Exercises For ROM 04580 2014 LEANN DE LA CRUZ Physical or manipulative therapy performed for maintenance rather than advent 2014 LEANN DE LA CRUZ Physical Medicine Physical Therapy Evaluation Physical Medicine Physical Therapy Evaluation 81481 2014 LEANN DE LA CRUZ Physical Medicine Physical Therapy Re-Evaluation Physical Medicine Physical Therapy Re-Evaluation 30615 2014 LEANN DE LA CRUZ Exercises A isted Exercises For ROM Exercises Assisted Exercises For ROM 32594 2014 LEANN DE LA CRUZ [facility] Physical Medicine Physical Therapy Re-Evaluation Physical Medicine Physical Therapy Re-Evaluation 55376 2014 LEANN DE LA CRUZ [facility] Physical Therapy Neuromuscular Re-education Physical Therapy Neuromuscular Re-education 78162 2014 KRISTY VILLALOBOSITLYN SANDRA [facility] Physical Therapy: ___ Se ion Segments, 15 Minutes Each Physical Therapy: ___ Session Segments, 15 Minutes Each 94463 2014 VILLALOBOSEVA [facility] Physical Therapy: ___ Se ion Segments, 15 Minutes Each Physical Therapy: ___ Session Segments, 15 Minutes Each 96198 2014 YANIRA FIGUEREDO [facility] Physical Therapy Neuromuscular Re-education Physical Therapy Neuromuscular Re-education 55253 2014 YANIRA FIGUEREDO [facility] Modalities Heat Hot Packs Modalities Heat Hot Packs 26737 2014 YANIRA FIGUEREDO [facility] Physical Therapy Neuromuscular Re-education Physical Therapy Neuromuscular Re-education 31248 2014 YANIRA FIGUEREDO [facility] Physical Therapy: ___ Se ion Segments, 15 Minutes Each Physical Therapy: ___ Session Segments, 15 Minutes Each 04694 2014 YANIRA FIGUEREDO [facility] Screening Test Of Visual Acuity, Quantitative, Bilateral Screening Test Of Visual Acuity, Quantitative, Bilateral 21001 RAVI ESCALANTE [facility] Ophthalmological Prior Patient Start Comprehensive Care Ophthalmological Prior Patient Start Comprehensive Care 43123 SHIVANI MCDONOUGH Determination Of Refractive State Determination Of Refractive State 16455 SHIVANI MCDONOUGH [facility] Fitting Monofocals (Not For Aphakia) [facility] Fitting Monofocals (Not For Aphakia) 03189 SHIVANI MCDONOUGH Exercises A isted Exercises For ROM Exercises Assisted Exercises For ROM 14000 TANGELA WARD [facility] Physical Therapy: ___ Se ion Segments, 15 Minutes Each Physical Therapy: ___ Session Segments, 15 Minutes Each 97021 NIYAH BARAHONA [facility] Physical Therapy Neuromuscular Re-education Physical Therapy Neuromuscular Re-education 61064 NIYAH BARAHONA [facility] Physical Therapy Mobilization Joint Physical Therapy Mobilization Joint 59604 JENNY VALENCIA [facility] Physical Medicine Physical Therapy Re-Evaluation Physical Medicine Physical Therapy Re-Evaluation 86567 TANGELA WARD [facility] Threshold Audiogram (Pure Tone) Automated Threshold Audiogram (Pure Tone) Automated 0208T SHELIA ENRIQUEZ [facility] Brief communication technology-based service, e.g. virtual check-in, by a physician or other qualified health care profpilar melendrez who can report evaluation and management services, provided to an established patient, not originating from a related E/M service provided within the previous 7 days nor leading to an E/M service or procedure within the next 24 hours or soonest available appointment; 5-10 minutes of medical discu RAMO Ramirez [facility] Social History Combined list of available smoking, tobacco, and other social history from Department of Defense and Veterans Affairs facilities. Social History Type Response Date Comment [facility] Tobacco smoking status NHIS [facility]-TOBACCO NEVER USED 06/12/2024 [facility] History of tobacco use [place]-TOBACCO NEVER USED 07/01/2021 [facility] History of tobacco use [place]-TOBACCO NEVER USED 05/30/2020 [facility] This section is an empty social history section. [facility] Assessment and Plan Combined list of future care activities from Department of Defense and Veterans Affairs facilities (e.g., assessment and plan notes, appointments, orders, and referrals). Additional future care activities may be listed in the Plan of Care section. Result Assessment and Plan Date Source Assessment and Plan No data available for this section 07/06/2025 Ambulatory Pharmacy Functional Status Combined list of recent functional and cognitive assessments recorded at Department of Defense and Veterans Affairs [place] Functional [place] Measurement (FIM) Scale: 1 = Total Assistance (Subject = 0% +), 2 = Maximal Assistance (Subject = 25% +), 3 = Moderate Assistance (Subject = 50% +), 4 = Minimal Assistance (Subject = 75% +), 5 = Supervision, 6 = Modified [place] (Device), 7 = Complete [place] (Timely, Safely). Assessment Date/Time Source Assessment Type Assessment Skill Assessment Score Assessment Details No data available for this section
--- OUTSIDE RECORDS SUMMARY | 2025-07-06 11:26 | XMS_ITS | Encounter Summary ---
Author Organization 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
--- OUTSIDE RECORDS SUMMARY | 2025-07-06 11:26 | XMS_ITS | Encounter Summary ---
Author Organization [facility] Address [address] [place] [address] Care Team Providers Care Hearing Aid Dispenser Name Role Phone Shanna Mccormack Primary Care Provider [phone] Encounter Details Date Type Department Care Team (Late st Contact Info) Description 05/17/2025 Results Follow-Up [facility] Family Medicine - [place] [address] [place] [address] Shanna Mccormack DO [address] [place] [address] XR ELBOW RT M3V Social History Tobacco Use Types Packs/Day Years [...] st Contact Info) Description 10/18/2025 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
== END 2025-07-06 11:23 | disposition home or self-care (01) ==
LOC: ANHLAB 11:23
PROVIDERS: PCP Family Medicine; Visit Provider Internal Medicine Hematology & Oncology
DX: D69.59 Other secondary thrombocytopenia (principal)
CPT/HCPCS: 86022